=== PATIENT | male | born 1960 | race Caucasian/White ===

== ENCOUNTER 2016-12-02 09:25 | Inpatient (IN) | payer OTHER ==
--- NOTE | 2016-12-02 10:00 | EDPHY ---
H & P Stated Complaint: on coumadin/fell in [place] leg/seen at ed/fu in [place] HPI/ROS: CHIEF COMPLAINT: Left leg pain HISTORY OF PRESENT ILLNESS: Patient complains of left leg pain, swelling and redness. Started while he was out of town and pads per last week. He slipped while standing on a fireplace mantle last Friday. He scraped the left anterior albarran. Moderately painful time. It progressed over the next few days. He was evaluated at an emergency department in [place], with a obtain laboratory studies and a CT scan of the left lower extremity. He was discharged home with a diagnosis of cellulitis on Keflex. The pain and swelling have increased over the past few days. No fever or chills. No numbness or tingling of the left foot or ankle. There is some drainage from the anterior albarran that is serous. There is some black appearance to the albarran with the outer skin being numb to him. He has no pain above the area. No chest pain or shortness of breath. No other associated complaints or modifying factors. He does take Coumadin for atrial fibrillation. REVIEW OF SYSTEMS: Ten systems reviewed and are negative unless otherwise noted in the HPI PAST MEDICAL HISTORY: Atrial fibrillation on Coumadin SOCIAL HISTORY: Nonsmoker. Works here in [place] FAMILY HISTORY: Noncontributory EXAMINATION General Appearance: Alert, no distress Head: normocephalic, atraumatic Eyes: Pupils equal and round, no conjunctival pallor or injection ENT, Mouth: Mucous membranes moist Neck: Normal inspection, supple, non-tender Respiratory: Lungs are clear to auscultation. No wheezing, rhonchi or crackles Cardiovascular: Regular rate and rhythm murmur. The DP pulses are symmetric at 2+. PT pulses are symmetric at 2+. The left lower extremity exhibits good signs of perfusion. Gastrointestinal: Abdomen is soft and nontender Back: non-tender, no bony abnormalities Neurological: A&O, nonfocal, cranial nerves 2-12 grossly intact. Skin: Warm and dry. The left lower extremity has extensive area of cellulitis and hematoma over the left anterior albarran. There is desquamation, serous drainage and an area of necrotic change about the hematoma. Extremities: Minimal tenderness buttock extremely edematous left lower extremity anteriorly. Compartments are firm but not rigid. He has strong pulses distal to the area of swelling. There is area of cellulitis infected hematoma. I do not appreciate any subcu emphysema of the area. Psychiatric: Mood and affect normal DIFFERENTIAL DIAGNOSES: Including but not limited to Cellulitis, infected hematoma, osteomyelitis, compartment syndrome, necrotizing fasciitis, fracture, sepsis MDM: 10:00 a.m. Left lower extremity infected hematoma with cellulitis and outer area of necrotic superficial tissue. I do not appreciate any evidence of compartment syndrome as he does have palpable and symmetric pulses in the DP and PT regions. There is significant edema. Concerns for cellulitis, infected hematoma in osteomyelitis. wound culture, blood cultures and lactic acid have been ordered. 10:55 a.m. Notified by radiologist Dr. Verduzco. There is no acute DVT noted on the lower extremity. There is hematoma noted. 11:30 a.m. I discussed the case with hospitalist Dr. Decker. The patient be admitted for lower extremity cellulitis with infected hematoma. We discussed the patient's vancomycin and there are no further orders at this time. He is admitted in stable condition. ED Precautions: Worsening pain. Erythema, edema, cyanosis, pallor, paresthesia or anesthesia. SUPERVISION: Shared visit. Patient evaluated by Dr. Saenz Source: Patient Exam Limitations: No limitations - Personal History Current Tetanus/Diphtheria Vaccine: Yes Tetanus Vaccine Date: < 10 YEARS - Medical/Surgical History Hx Asthma: No Hx Chronic Respiratory Disease: No Hx Diabetes: No Hx Cardiac Disease: Yes Hx Renal Disease: No Hx Cirrhosis: No Hx Alcoholism: No Hx HIV/AIDS: No Hx Splenectomy or Spleen Trauma: No Other PMH: ABLATION for afib, - Social History Smoking Status: Never smoked Constitutional: Initial Vital Signs Temperature (C) 98.8 F 12/02/16 09:32 Heart Rate 76 12/02/16 09:32 Respiratory Rate 18 12/02/16 09:32 Blood Pressure 130/82 H 12/02/16 09:32 O2 Sat (%) 95 12/02/16 09:32 O2 Delivery Mode Room Air Allergies/Adverse Reactions: No Known Allergies Allergy (Verified 12/02/16 09:31) Home Medications: Medication Instructions Recorded Dronedarone HCl [Multaq 400 mg (*)] 400 mg PO BIDMEAL 12/11/15 Furosemide [Lasix 40 MG (*)] 40 mg PO DAILY 12/11/15 Metoprolol Tartrate [Lopressor 100 50 mg PO BID 12/11/15 mg (*)] Warfarin Sodium [Coumadin 5MG (*)] 2.5 mg PO SUTUWETHSA@12/11/15 Warfarin Sodium [Coumadin 5MG (*)] 5 mg PO MOFR@12/11/15 Cephalexin [Keflex (*)] 500 mg PO BID 12/02/16 Ibuprofen [Motrin (*)] 800 mg PO Q8HRS 12/02/16 Medical Decision Making - Diagnostics Imaging Results: Imaging Impressions Tibia/Fibula X-Ray 12/02/16 09:57 Impression: 1. There is no acute or subacute osseous abnormality identified. 2. Pretibial soft tissue density, consistent with the patient's known hematoma. If there is further clinical concern regarding osteomyelitis, contrast-enhanced MR imaging is suggested. Extremity Venous Study 12/02/16 10:03 Impression: 1. There is no sonographic evidence of deep or superficial vein thrombosis in the left lower extremity. 2. Pretibial soft tissues complex hematoma. Findings were discussed with Hilton Boone PA-C at 10:54 am, on 12/02/2016. - Data Points Laboratory Results: Laboratory Results 12/02/16 09:52 12/02/16 09:52 12/02/16 12/02/16 12/02/16 09:52 09:52 09:52 WBC 10.60 10^3/uL H 10^3/uL (3.80-9.50) RBC 3.28 10^6/uL L 10^6/uL (4.40-6.38) Hgb 11.8 g/dL L g/dL (13.7-17.5) Hct 34.3 % L % (40.0-51.0) MCV 104.6 fL H fL (81.5-99.8) MCH 36.0 pg H pg (27.9-34.1) MCHC 34.4 g/dL g/dL (32.4-36.7) RDW 12.8 % % (11.5-15.2) Plt Count 237 10^3/uL 10^3/uL (150-400) MPV 9.8 fL fL (8.7-11.7) Neut % (Auto) 66.0 % % (39.3-74.2) Lymph % (Auto) 20.1 % % (15.0-45.0) [place] % (Auto) 12.3 % % (4.5-13.0) Eos % (Auto) 0.5 % L % (0.6-7.6) Baso % (Auto) 0.4 % % (0.3-1.7) Nucleat RBC Rel Count 0.0 % % (0.0-0.2) Absolute Neuts (auto) 7.01 10^3/uL H 10^3/uL (1.70-6.50) Absolute Lymphs (auto) 2.13 10^3/uL 10^3/uL (1.00-3.00) Absolute Monos (auto) 1.30 10^3/uL H 10^3/uL (0.30-0.80) Absolute Eos (auto) 0.05 10^3/uL 10^3/uL (0.03-0.40) Absolute Basos (auto) 0.04 10^3/uL 10^3/uL (0.02-0.10) Absolute Nucleated RBC 0.00 10^3/uL 10^3/uL (0-0.01) Immature Gran % 0.7 % % (0.0-1.1) Immature Gran # 0.07 10^3/uL 10^3/uL (0.00-0.10) ESR 33 MM/HR H MM/HR (0-20) PT 20.5 SEC H SEC (12.0-15.0) INR 1.75 H (0.83-1.16) APTT 38.8 SEC H SEC (23.0-38.0) VBG Lactic Acid Sodium 141 mEq/L mEq/L (134-144) Potassium 3.9 mEq/L mEq/L (3.5-5.2) Chloride 105 mEq/L mEq/L (97-110) Carbon Dioxide 26 mEq/l mEq/l (22-31) Anion Gap 10 mEq/L mEq/L (8-16) BUN 12 mg/dL mg/dL (7-23) Creatinine 1.0 mg/dL mg/dL (0.7-1.3) Estimated GFR > 60 Glucose 116 mg/dL H mg/dL (70-100) Calcium 8.9 mg/dL mg/dL (8.5-10.4) Total Bilirubin 2.0 mg/dL H mg/dL (0.1-1.4) Creatine Kinase 103 IU/L IU/L (0-224) C-Reactive Protein 195.3 mg/L H mg/L (<10.0) 12/02/16 09:52 WBC RBC Hgb Hct MCV MCH MCHC RDW Plt Count MPV Neut % (Auto) Lymph % (Auto) [place] % (Auto) Eos % (Auto) Baso % (Auto) Nucleat RBC Rel Count Absolute Neuts (auto) Absolute Lymphs (auto) Absolute Monos (auto) Absolute Eos (auto) Absolute Basos (auto) Absolute Nucleated RBC Immature Gran % Immature Gran # ESR PT INR APTT VBG Lactic Acid 0.9 mmol/L mmol/L (0.7-2.1) Sodium Potassium Chloride Carbon Dioxide Anion Gap BUN Creatinine Estimated GFR Glucose Calcium Total Bilirubin Creatine Kinase C-Reactive Protein Medications Given: Discontinued Medications Vancomycin/Sodium Chloride (Vancomycin 1 Gm (Premix)) 250 mls @ 250 mls/hr IV EDNOW ONE PRN Reason: Protocol Stop: 12/02/16 11:28 Last Admin: 12/02/16 10:38 Dose: 250 mls Departure - Departure Disposition: [facility] Acute Clinical Impression: Lower extremity cellulitis Qualifiers: Laterality: left Qualified Code(s): L03.116 - Cellulitis of left lower limb Traumatic hematoma of lower leg with infection Qualifiers: Encounter type: initial encounter Laterality: left Qualified Code(s): S80.12XA - Contusion of left lower leg, initial encounter Condition: Good
[2016-12-02 10:11] LABS: % IMMATURE GRANULYOCYTES 0.7 % (0.0-1.1); ABSOLUTE IMMATURE GRANULOCYTES 0.07 10^3/uL (0.00-0.10); ADD DIFF? NO; ADD MORPH? NO; ADD SCAN? NO; ATYPICAL LYMPHOCYTE FLAG 0 (0-99); FRAGMENT RBC FLAG 0 (0-99); HEMATOCRIT 34.3 % (40.0-51.0); HEMOGLOBIN 11.8 g/dL (13.7-17.5); LEFT SHIFT FLG 10 (0-99); LIPEMIA HEMOLYSIS FLAG 90 (0-99); MEAN CELL HEMOGLOBIN CONCENTR. 34.4 g/dL (32.4-36.7); MEAN CELL VOLUME 104.6 fL (81.5-99.8); MEAN PLATELET VOLUME 9.8 fL (8.7-11.7); PLATELET CLUMPS FLAG 0 (0-99); PLATELET COUNT 237 10^3/uL (150-400); RED BLOOD CELL COUNT 3.28 10^6/uL (4.40-6.38); RED CELL DISTRIBUTION WIDTH 12.8 % (11.5-15.2)
[2016-12-02 10:18] LABS: INR 1.75 (0.83-1.16); PROTIME(PATIENT) 20.5 SEC (12.0-15.0)
[2016-12-02 10:19] LABS: APTT 38.8 SEC (23.0-38.0)
[2016-12-02 10:23] LABS: SEDIMENTATION RATE 33 MM/HR (0-20)
[2016-12-02] MEDS ORDERED: VANCOMYCIN HCL/NORMAL SALINE 250 ML IV ONE (10:29)
[2016-12-02 10:38] LABS: ANION GAP 10 mEq/L (8-16); CALCIUM 8.9 mg/dL (8.5-10.4); CARBON DIOXIDE 26 mEq/l (22-31); CHLORIDE 105 mEq/L (97-110); GLOMERULAR FILTRATION RATE > 60; GLUCOSE 116 mg/dL (70-100); POTASSIUM 3.9 mEq/L (3.5-5.2); SODIUM 141 mEq/L (134-144)
[2016-12-02 10:57] LABS: C-REACTIVE PROTEIN 195.3 mg/L (<10.0)
[2016-12-02] MEDS ORDERED: ONDANSETRON DISINTEGRATING 4 MG TAB PO PRN (13:39)
[2016-12-02] MEDS ORDERED: ONDANSETRON 4 MG/2 ML VIAL IVP PRN (13:39)
--- NOTE | 2016-12-02 14:19 | GHP ---
[f rep st] HISTORY AND PHYSICAL DATE OF ADMISSION: 12/02/2016 CHIEF COMPLAINT: Left leg hematoma, cellulitis. HISTORY OF PRESENT ILLNESS: A 56-year-old male with a history of atrial fibrillation and prior left leg cellulitis presented with a progressive leg hematoma. He was in [place] last week, standing on top of a fireplace, changing a bulb when he lost his footing. He scraped his left anterior albarran on the way down on the wood. It was moderately painful at that time. The pain got worse with redn ess and swelling. He was seen in the emergency room in [place] and had a CT scan done showing la rge hematoma. He was diagnosed with cellulitis and discharged on Keflex. Pain and swelling have in creased over the past couple of days. No fevers or chills. No numbness or tingling of the left yoandy t or ankle. He notes some serous drainage from the anterior albarran. There is black scabbing to the s kin. He denies chest pain or shortness of breath. REVIEW OF SYSTEMS: I completed a 10-point review of systems, negative except as noted in the HPI. PAST MEDICAL HISTORY: 1. Atrial fibrillation. 2. History of prior left leg cellulitis in December 2015. 3. BENI, on CPAP. SOCIAL HISTORY: Lives in [place]. Works for [employer]. Alcohol: Drinks 2 to 3 scotches a coupl e of times a week. No tobacco or illicits. FAMILY HISTORY: Father with cancer. PAST SURGICAL HISTORY: None. MEDICATIONS: Home medications: See medication reconciliation. /[id number]/MODL
--- NOTE | 2016-12-02 14:19 | GHP ---
[f rep st] HISTORY AND PHYSICAL DATE OF ADMISSION: 12/02/2016 CHIEF COMPLAINT: Left leg hematoma/cellulitis. HISTORY OF PRESENT ILLNESS: This is a 56-year-old male with history of atrial fibrillation on Coumadin, BENI, presenting with progressive leg hematoma. He was in [place] last week working on a [employer] mantle, standing on the ledge , when he lost his footing and scraped his left anterior albarran. Immediately had pain at the site. The pain progressed, as well as swelling. He went to ER there and CT showed large hematoma and was given Keflex for cellulitis. Pain and swelling have increased over the past couple of days. Denies overt fevers or chills. No numbness or tingling in the left foot or ankle. He has complained of some serous drainage. There is a black appearance over the albarran. REVIEW OF SYSTEMS: I completed a 10-point review of systems, negative except as noted in HPI. PAST MEDICAL HISTORY: 1. Atrial fibrillation on Coumadin. 2. Obstructive sleep apnea on CPAP. 3. History of left leg cellulitis in December 2015. SOCIAL HISTORY: Lives in [place]. Works at [employer]. Alcohol: 2-3 scotches every 2-3 days. No tobacco or illicits. FAMILY HISTORY: Father with cancer. MEDICATIONS: See medication reconciliation. ALLERGIES: None. PAST SURGICAL HISTORY: None. PHYSICAL EXAMINATION: VITAL SIGNS: Temperature 36.6, blood pressure 125/71, heart rate 70s, respirations 18, 95% on room air. GENERAL: Obese male lying in bed in no acute distress. HEENT: PERRLA. EOMI. Oropharynx clear. CV: Regular rate and rhythm. No murmurs, gallops, or rubs. LUNGS: Clear to auscultation bilaterally. ABDOMEN: Soft, nontender, nondistended. Positive bowel sounds. : No suprapubic tenderness. No [place]. MUSCULOSKELETAL: Significant left lower extremity swelling and erythema. There is a large area of eschar on the lateral aspect with serous drainage. Pedal pulses are intact. No numbness to touch. PSYCH: Alert and oriented x3, very pleasant. LABORATORY DATA: INR is 1.7, PT is 20. Lactate is normal. Sodium 141, potassium 3.9, chloride 105, carbon dioxide 26, BUN 12, creatinine 1, glucose 116. Total bilirubin 2, C-reactive protein is 195. WBC is 10, hemoglobin is 11 , hematocrit 34, platelets 237. Ultrasound negative for DVT. Tib-fib x-ray showing hematoma. Personally reviewed outside hospital CT showing a very significant anterior lateral leg hematoma. ASSESSMENT AND PLAN: 1. Left leg cellulitis: due to abrasion, now hematoma. IV vancomycin. He is afebrile. Blood cultures pending 2. Large hematoma: secondary to abrasion on Coumadin. I have contacted Dr. Butler with surgery who will evaluate patient. Wound care 3. Atrial fibrillation: NSR. Continue antiarrhythmic. Hold Coumadin with hematoma. 4. Obstructive sleep apnea, continue CPAP. 5. Diet: N.p.o. for now. 6. Deep vein thrombosis prophylaxis. SCD to the right leg. Disposition: Warrants inpatient admission given acute left leg cellulitis and hematoma. Requires IV antibiotics and possible surgical intervention. /[id number]/MODL MTDD
[2016-12-02] MEDS ORDERED: VANCOMYCIN 500 MG in D5W 100 ML IV ONE (14:30)
[2016-12-02] MEDS: DRONEDARONE HCL 400 MG TAB PO SCH (18:30)
[2016-12-02] MEDS: METOPROLOL TARTRATE 50 MG TAB PO SCH (19:49)
[2016-12-02] MEDS: ACETAMINOPHEN 325 MG TAB PO PRN (20:46)
[2016-12-02] MEDS ORDERED: METOPROLOL TARTRATE 100 MG TAB PO SCH (21:00)
[2016-12-03] MEDS: VANCOMYCIN 1.5 GM in D5W 250 ML IV SCH ×2 (03:18→16:23)
[2016-12-03] MEDS: ACETAMINOPHEN 325 MG TAB PO PRN ×2 (03:25→19:39)
[2016-12-03] MEDS: oxyCODONE IR 5 MG TAB PO PRN (03:25)
[2016-12-03 05:27] LABS: HEMATOCRIT 31.6 % (40.0-51.0); MEAN CELL HEMOGLOBIN 35.9 pg (27.9-34.1); MEAN CELL HEMOGLOBIN CONCENTR. 34.8 g/dL (32.4-36.7); MEAN CELL VOLUME 103.3 fL (81.5-99.8); RED BLOOD CELL COUNT 3.06 10^6/uL (4.40-6.38); RED CELL DISTRIBUTION WIDTH 12.5 % (11.5-15.2)
[2016-12-03 05:35] LABS: INR 1.51 (0.83-1.16); PROTIME(PATIENT) 18.2 SEC (12.0-15.0)
--- NOTE | 2016-12-03 06:51 | GCON ---
[f rep st] CONSULTATION REFERRING PHYSICIAN: Emilee Love MD REASON FOR CONSULTATION: Left leg hematoma/cellulitis. HISTORY OF PRESENT ILLNESS: This is a 56-year-old gentleman with a history of atrial fibrillation s tatus post ablation on Coumadin, who presented for evaluation management of left lower leg injury. The patient had been working above a fireplace in his former hometown of [place] when he slipped and fell. He struck the anterior aspect of his albarran, and he developed a hematoma. The patient also was worried about cellulitis. He just flew back from [place] after being seen in the emergency room and given Keflex. The patient had noted increased pain and swelling over the last several days and the patient noticed a black eschar over the area of impact. PAST MEDICAL HISTORY: Significant for atrial fibrillation, obstructive sleep apnea, left leg cellul itis in 2016. PAST SURGICAL HISTORY: Includes ablation of cardiac atrial fibrillation, remains on Coumadin despit e this. He has not had any other issues. ALLERGIES: None. MEDICATION: Includes Coumadin, ibuprofen, metoprolol, furosemide, Multaq, Keflex. FAMILY HISTORY: Significant for cancer. REVIEW OF SYSTEMS: Significant for his sleep apnea, his recent leg injury. All others were reviewe d and are negative. PHYSICAL EXAMINATION: VITAL SIGNS: The patient is alert, oriented to person, place, and time. He has a temperature of 36.9, heart rate of 70, blood pressure of 117/64, saturating 95% on room air. The patient has anicteric sclerae. Oropharynx is moist. No JVD, thyromegaly, supraclavicular adeno debi. LUNGS: Clear. HEART: Regular heart tones, S1 and S2. ABDOMEN: Soft. He has small umbil ical hernia. No scars. No hepatosplenomegaly. No other hernias are noted. EXTREMITIES: 2+/2+ fe moral, radial, and dorsalis pedis pulses. His left lower extremity is grossly swollen with bruising and subcutaneous areas of bruising and underlying blood. He has a large eschar measuring approxima tely 11 x 8 cm raised on the anterolateral aspect of the albarran. He also has a small ballotable area measuring 5 x 6 cm just below the knee, which does not have an eschar. He has surrounding erythema, hard to tell whether this is from underlying bleeding, or whether it is from his secondary cellulit is. Given ultrasound of the leg was personally reviewed on PAX, agree with the findings, which show pretibial soft tissue complex hematoma, measuring 4 x 2 cm. X-ray of the tibia and fibula does not show an acute fracture. LABORATORY STUDIES: Significant for white blood cell count of 10.6, hemoglobin of 11.8 with a hemat ocrit of 34.3, platelet count of 237. ESR of 33. Coags show a PT of 20.5, INR of 1.75 and APTT of 38.8. His chemistry shows sodium 141, potassium 3.9, chloride 105, bicarb 26, BUN 12, creatinine 1, glucose 116, calcium 8.9, bilirubin is 2.0, C-reactive protein is 195. IMPRESSION: Lower leg injury with cellulitis possibly, and likely hematoma with ecchymosis. Recomm end elevation of his leg, agree with the diuresis, antibiotics for now. The patient has an elevated white blood cell count, but had been afebrile. Will continue to monitor the patient in the hospita l over the next 24-48 hours. I would hold off on his Coumadin for now and refrain from hematoma exp loration at this point, I believe that if we remove the eschar, he will have an open wound, which wo uld likely require a prolonged wound VAC use and skin graft. If we do nothing, this will act as a b iologic barrier and should likely respond to antibiotics and elevation. No compression at this poin t, I have discussed this with the patient. Will follow up with him while he is in the hospital. /[id number]/MODL
[2016-12-03] MEDS: FUROSEMIDE 40 MG TAB PO SCH (09:31)
[2016-12-03] MEDS: DRONEDARONE HCL 400 MG TAB PO SCH ×2 (09:31→20:59)
[2016-12-03] MEDS: METOPROLOL TARTRATE 50 MG TAB PO SCH ×2 (09:32→20:59)
--- NOTE | 2016-12-03 12:35 | HOSPPROG ---
Hospitalist Progress Note Assessment/Plan: #Fever: due to leg cellulitis vs hematoma. Mildly elevated WBC. Blood cultures pending #Left leg hematoma: will not debride as would lead to further complications, ie skin graft. Bacitracin. Hold coumadinD #Cellulitis: aspirated albarran, no pus. Will cont IV Vanc overnight. Hard to tell if redness from hematoma alone, but is source for infection, so would cont oral abx at DC with fevers #Atrial fib: s/p ablation. cont meds. Hold coumadin #Diet: regular #DVT ppx: SCD with hematoma Disp: warrants inpt admission with fever, cont IV abx and await cultures Subjective: fevered overnight Objective: Vital Signs Temp Pulse Resp BP Pulse Ox 37.3 C 77 17 122/71 H 99 12/03/16 08:00 12/03/16 09:32 12/03/16 08:00 12/03/16 09:32 12/03/16 08:00 Laboratory Results 12/03/16 04:49 12/02/16 12/03/16 12/04/16 05:59 05:59 05:59 Intake Total 1350 Output Total 700 Balance 650 PT 18.2 SEC (12.0-15.0) H 12/03/16 04:49 INR 1.51 (0.83-1.16) H 12/03/16 04:49 - Physical Exam Constitutional: no apparent distress, obese Eyes: PERRL Ears, Nose, Mouth, Throat: moist mucous membranes Cardiovascular: regular rate and rhythym, no murmur, rub, or gallop Respiratory: no respiratory distress, no rales or rhonchi Gastrointestinal: normoactive bowel sounds, soft, non-tender abdomen Genitourinary: no bladder fullness Skin: warm Musculoskeletal: other (left leg swelling improved with elevation. Lateral area with eschar and closed skin. Area above fluctuant. Leg warm with erythema surrounding hematoma. Pulses intact) Neurologic: AAOx3, CN II-XII Intact Psychiatric: interacting appropriately ICD10 Worksheet Patient Problems: Problems Problem Status Onset Lower extremity cellulitis Acute Traumatic hematoma of lower leg with infection Acute Cellulitis Acute
--- NOTE | 2016-12-03 21:19 | SOAPPROG ---
SOAP Progress Note Assessment/Plan: Assessment/Plan: 56 you man on anticoagulation s/p left leg trauma. Large distal hematoma. Given Keflex in [place] now on Vanco. Leg interval less edematous. Ecchymosis versus cellulitis. Area of concern proximal leg is 5x6 cm with warmth and fluctuance. Area cleansed with chlorhexidine and 23 ga needle used to aspirate fluid. No purulence Continue Vanco reassess in am possible d/c in am on abx. Discussed with Dr Love 12/03/16 17:14 Objective: Vital Signs Temp Pulse Resp BP Pulse Ox 37.3 C 90 18 132/78 H 94 12/03/16 19:22 12/03/16 20:59 12/03/16 19:22 12/03/16 20:59 12/03/16 19:22 Laboratory Results 12/03/16 04:49 12/02/16 12/03/16 12/04/16 05:59 05:59 05:59 Intake Total 1350 250 Output Total 700 Balance 650 250 PT 18.2 SEC (12.0-15.0) H 12/03/16 04:49 INR 1.51 (0.83-1.16) H 12/03/16 04:49 ICD10 Worksheet Patient Problems: Problems Problem Status Onset Lower extremity cellulitis Acute Traumatic hematoma of lower leg with infection Acute Cellulitis Acute
[2016-12-04] MEDS: VANCOMYCIN 1.5 GM in D5W 250 ML IV SCH ×2 (03:01→15:22)
[2016-12-04 04:29] LABS: HEMATOCRIT 32.8 % (40.0-51.0); HEMOGLOBIN 11.3 g/dL (13.7-17.5); MEAN CELL HEMOGLOBIN 35.5 pg (27.9-34.1); MEAN CELL HEMOGLOBIN CONCENTR. 34.5 g/dL (32.4-36.7); MEAN CELL VOLUME 103.1 fL (81.5-99.8); RED BLOOD CELL COUNT 3.18 10^6/uL (4.40-6.38)
[2016-12-04 04:50] LABS: ANION GAP 13 mEq/L (8-16); CALCIUM 8.4 mg/dL (8.5-10.4); CARBON DIOXIDE 22 mEq/l (22-31); CHLORIDE 101 mEq/L (97-110); CREATININE 0.9 mg/dL (0.7-1.3); GLOMERULAR FILTRATION RATE > 60; GLUCOSE 156 mg/dL (70-100); POTASSIUM 3.6 mEq/L (3.5-5.2); SODIUM 136 mEq/L (134-144)
[2016-12-04] MEDS: ACETAMINOPHEN 325 MG TAB PO PRN ×4 (05:32→21:10)
[2016-12-04] MEDS: METOPROLOL TARTRATE 50 MG TAB PO SCH ×2 (09:52→21:10)
[2016-12-04] MEDS: FUROSEMIDE 40 MG TAB PO SCH (09:53)
[2016-12-04] MEDS: DRONEDARONE HCL 400 MG TAB PO SCH ×2 (09:53→17:33)
[2016-12-04] MEDS ORDERED: MEPERIDINE 25 MG/ML SYR IVP ONE (13:15)
--- NOTE | 2016-12-04 14:04 | HOSPPROG ---
Hospitalist Progress Note Assessment/Plan: #Fever: due to leg cellulitis vs hematoma. Mildly elevated WBC. Blood cultures pending * still with fever after a day of IV abx * will add invanz and watch #Left leg hematoma: will not debride as would lead to further complications, ie skin graft. Bacitracin. Hold coumadinD #Cellulitis: aspirated albarran, no pus * a little more fever than one would expect with just inflammation. Also with rigors * will add invanz to vanc and monitor another day #Atrial fib: s/p ablation. cont meds. * ablation was one year ago. he feels certain that he hasn't had any afib since * would hold coumadin until he can make appt with his gas specialist #Diet: regular #DVT ppx: SCD with hematoma Subjective: seemed to be feeling better but then had fever and rigors early afternoon. also increased o2 requirement at the time Objective: Vital Signs Temp Pulse Resp BP Pulse Ox 38.1 C 96 24 H 148/80 H 90 L 12/04/16 12:25 12/04/16 12:38 12/04/16 12:38 12/04/16 12:38 12/04/16 12:38 Laboratory Results 12/04/16 04:03 12/04/16 04:03 12/03/16 12/04/16 12/05/16 05:59 05:59 05:59 Intake Total 1350 600 Output Total 700 Balance 650 600 PT 18.2 SEC (12.0-15.0) H 12/03/16 04:49 INR 1.51 (0.83-1.16) H 12/03/16 04:49 discussed with surgery - Physical Exam Constitutional: no apparent distress, appears nourished, not in pain Eyes: anicteric sclera, EOMI Ears, Nose, Mouth, Throat: moist mucous membranes Cardiovascular: regular rate and rhythym, no murmur, rub, or gallop Respiratory: no respiratory distress, clear to auscultation Gastrointestinal: normoactive bowel sounds, soft, non-tender abdomen, no palpable masses Musculoskeletal: other (left leg with large black hematoma and surrounding erythema but no streaking) ICD10 Worksheet Patient Problems: Problems Problem Status Onset Lower extremity cellulitis Acute Traumatic hematoma of lower leg with infection Acute Cellulitis Acute
[2016-12-04] MEDS: ERTAPENEM 1 GM in NS 100 ML IV SCH (14:22)
[2016-12-04] MEDS: VANCOMYCIN 1.75 GM in D5W 500 ML IV SCH (17:07)
[2016-12-04] MEDS: oxyCODONE IR 5 MG TAB PO PRN (21:10)
[2016-12-05 04:50] LABS: % IMMATURE GRANULYOCYTES 0.9 % (0.0-1.1); ADD DIFF? NO; ADD MORPH? NO; ADD SCAN? NO; ATYPICAL LYMPHOCYTE FLAG 0 (0-99); FRAGMENT RBC FLAG 0 (0-99); HEMATOCRIT 31.2 % (40.0-51.0); HEMOGLOBIN 10.8 g/dL (13.7-17.5); LEFT SHIFT FLG 10 (0-99); LIPEMIA HEMOLYSIS FLAG 90 (0-99); MEAN CELL HEMOGLOBIN 35.5 pg (27.9-34.1); MEAN CELL HEMOGLOBIN CONCENTR. 34.6 g/dL (32.4-36.7); MEAN CELL VOLUME 102.6 fL (81.5-99.8); MEAN PLATELET VOLUME 9.7 fL (8.7-11.7); PLATELET CLUMPS FLAG 0 (0-99); PLATELET COUNT 253 10^3/uL (150-400); RED BLOOD CELL COUNT 3.04 10^6/uL (4.40-6.38); RED CELL DISTRIBUTION WIDTH 12.2 % (11.5-15.2)
[2016-12-05 05:05] LABS: ANION GAP 13 mEq/L (8-16); CALCIUM 8.7 mg/dL (8.5-10.4); CARBON DIOXIDE 25 mEq/l (22-31); CHLORIDE 101 mEq/L (97-110); CREATININE 0.9 mg/dL (0.7-1.3); GLOMERULAR FILTRATION RATE > 60; GLUCOSE 147 mg/dL (70-100); SODIUM 139 mEq/L (134-144)
[2016-12-05] MEDS: oxyCODONE IR 5 MG TAB PO PRN (05:07)
[2016-12-05] MEDS: VANCOMYCIN 1.75 GM in D5W 500 ML IV SCH (05:08)
[2016-12-05] MEDS: ACETAMINOPHEN 325 MG TAB PO PRN ×2 (05:14→20:59)
[2016-12-05] MEDS: ERTAPENEM 1 GM in NS 100 ML IV SCH (09:42)
[2016-12-05] MEDS: METOPROLOL TARTRATE 50 MG TAB PO SCH ×2 (09:43→20:32)
[2016-12-05] MEDS: DRONEDARONE HCL 400 MG TAB PO SCH ×3 (09:43→21:01)
--- NOTE | 2016-12-05 10:11 | HOSPPROG ---
Hospitalist Progress Note Assessment/Plan: DIAGNOSES: -skin and soft tissue infection left leg -macrocytic anemia and coagulopathy, suspect he may drink more alcohol than he is admitting the further assessment for other causes is indicated -history of atrial fibrillation -history of sleep apnea on CPAP PLANS: -I will review his MRI from [place] with in our radiologist -continue antibiotics and will cover for strep as the hemorrhagic changes suggest that organism -infectious disease consultation -check vitamin B12 and folate levels SUBJECTIVE: Still with fair bit of pain but less tender in pain today Woke up this morning soaked in sweat No nausea eating well Pain still interferes with walking but is able to get on his feet OBJECTIVE Vitals reviewed: Temperature this morning 39 degrees, stable vitals otherwise Exam: alert oriented relaxed skin warm dry color ok resps not labored lungs clear BSs heart regular abd soft nondistended nontender, bowel sounds present limbs left leg still with quite a bit of edema, erythema and the a large dermal hemorrhage; per the patient the edema is less today, and there remains some tenderness though less tender today per the patient; no palpable fluctuance or crepitus and nothing that really looks necrotic iv site ok Laboratory data: White blood cell count still high at 11.5 1000, hemoglobin slightly worse at 10.8, macrocytic Chemistry panel stable Objective: Vital Signs Temp Pulse Resp BP Pulse Ox 37.1 C 78 18 135/74 H 91 L 12/05/16 07:32 12/05/16 07:32 12/05/16 07:32 12/05/16 07:32 12/05/16 07:32 Laboratory Results 12/05/16 04:08 12/05/16 04:08 12/04/16 12/05/16 12/06/16 06:59 06:59 06:59 Intake Total 600 2059 Balance 600 2059 PT 18.2 SEC (12.0-15.0) H 12/03/16 04:49 INR 1.51 (0.83-1.16) H 12/03/16 04:49 - Time Spent With Patient Time Spent with Patient: greater than 35 minutes Time Spent with Patient: Greater than 35 minutes spent on this patients care, greater than 50% of time spent counseling, educating, and coordinating care regarding the above mentioned plan. ICD10 Worksheet Patient Problems: Problems Problem Status Onset Lower extremity cellulitis Acute Traumatic hematoma of lower leg with infection Acute Cellulitis Acute
[2016-12-05] MEDS: FUROSEMIDE 40 MG TAB PO SCH (10:38)
[2016-12-05 12:17] LABS: FOLATE SERUM 6.44 ng/mL (2.80 - >20.00)
--- NOTE | 2016-12-05 15:05 | TRAUMAPN ---
- Problem/Surgery Performed (1) Traumatic hematoma of lower leg with infection Assessment/Plan: 12/05 Hematoma continues, WBC down but % neutrophils increased. Original CT from [place] does show small amounts for gas in hematoma. I don't feel that further imaging will support further non-operative treatment. Will plan to explore/drain and dbride as I feel that this will truncate his course. Cultures will be obtained. Qualifiers: Encounter type: initial encounter Laterality: left Qualified Code(s): S80.12XA - Contusion of left lower leg, initial encounter; L08.9 - Local infection of the skin and subcutaneous tissue, unspecified Subjective: It's no better Objective: Vital Signs Temp Pulse Resp BP Pulse Ox 37.1 C 81 18 131/79 H 94 12/05/16 11:41 12/05/16 11:41 12/05/16 11:41 12/05/16 11:41 12/05/16 11:41 Laboratory Results 12/05/16 04:08 12/05/16 04:08 12/04/16 12/05/16 12/06/16 05:59 05:59 05:59 Intake Total 600 2059 Balance 600 2059 PT 18.2 SEC (12.0-15.0) H 12/03/16 04:49 INR 1.51 (0.83-1.16) H 12/03/16 04:49 Physical Exam - Physical Exam General Appearance: WD/WN, alert, mild distress Extremities: other (There is minimal erythema, edema, warmth and tenderness in left lower extremity) Time Spent w/Patient (minutes): 25
--- NOTE | 2016-12-05 15:12 | CPEKG ---
Heart Rate: 94 RR Interval: 638 P-R Interval: 152 QRSD Interval: 86 QT Interval: 372 QTC Interval: 466 P [place]: 44 QRS [place]: 40 T Wave [place]: 124 EKG Severity - ABNORMAL ECG - EKG Impression: SINUS RHYTHM EKG Impression: NONSPECIFIC T ABNORMALITIES, LATERAL LEADS Electronically Signed By: Isidoro Ahuja 05-Dec-2016 17:20:39
[2016-12-05] MEDS ORDERED: MIDAZOLAM 2 MG/2 ML VIAL ONE (15:20)
[2016-12-05] MEDS ORDERED: fentaNYL 100 MCG/2 ML INJ ONE (15:20)
[2016-12-05] MEDS ORDERED: PROPOFOL/EMULSION 500 MG/50 ML BOTTLE IV ONE (15:20)
--- NOTE | 2016-12-05 15:21 | GCON ---
[f rep st] CONSULTATION INFECTIOUS DISEASE CONSULTATION DATE OF CONSULTATION: 12/05/2016 REASON FOR CONSULTATION: Fever. HISTORY OF PRESENT ILLNESS: A 56-year-old male with a past medical history of atrial fibrillation, on Coumadin, and obstructive sleep apnea, who 1 week ago on November 27, sustained a fall from a ledge of a fireplace while changing a light bulb. The patient subsequently presented to the emergency room, on November [address] scan of his left lower extremity which sustained the brunt of the injury. The patient was found to have a large hematoma, and was started on prophylactic Keflex at that time. The patient returned to [place], and on December 02 presented to the emergency room per instructions from [place]. The patient was admitted to the hospital for further management. The patient was empirically started on IV vancomycin, and blood cultures were obtained. The patient reports that since admission his leg is less painful, less swollen, and less red. But despite this, he has had daily fevers to 39 since admission. The patient initially was started on IV vancomycin, but later ertapenem was started on December 04. The patient also has had a persistent leukocytosis of 11, 000. His CRP on admission was 195. Blood cultures have remained negative. Surgery has been following along, and today a CT scan was personally reviewed by me, as well as the rest of the team, which showed extensive hematoma in the lateral compartment of the left lower extremity. Planned for surgical debridement today. PAST MEDICAL HISTORY: Atrial fibrillation, status post ablation in August of 2015. The patient had been maintained on Coumadin, but has been discontinued. Also obstructive sleep apnea, hypertension. SOCIAL HISTORY: Nonsmoker. No alcohol. 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 He lives alone. No pets. No international travel. FAMILY HISTORY: Reviewed and noncontributory. ALLERGIES: NKDA. MEDICATIONS: Vancomycin 1.5 g IV q.12, ertapenem 1 g IV q.24. He is also on Tylenol, Lasix, Lopressor, Zofran, and oxycodone. REVIEW OF SYSTEMS: A complete 10-point review of systems was performed, and is negative except as mentioned in HPI. PHYSICAL EXAM: VITAL SIGNS: T-max today 39.1, blood pressure 131/79, heart rate 81, respiratory rate 18, saturation 94% on 6 L. GENERAL: This is a very pleasant male lying in bed, in no acute distress with fluent speech. HEENT: Pupils are reactive bilaterally. Oropharynx good dentition. Moist mucous membranes. NECK: Supple. No lymphadenopathy. CARDIOVASCULAR: Regular rate and rhythm. No murmurs. The patient was notably not in AFib by exam. CHEST: Clear to auscultation bilaterally. ABDOMEN: Obese, soft, nontender. Bowel sounds are present. EXTREMITIES: The patient had normal capillary refill bilaterally and 2+ bounding lower extremity pulses. He had obvious swelling of his left calf with obvious hematoma in the subcutaneous tissues. He also had noticeable swelling of the leg laterally with ecchymosis throughout, including under his thigh. There was no definitive erythema noted. Mild warmth. NEUROLOGIC: He is alert and oriented x4. Moving all 4 extremities equally. SKIN: No rashes other than noted on extremity exam. LABORATORY: White count 11.4, hematocrit 31, platelets of 253, 80% neutrophils , CRP is 195. Creatinine is 0.9. Blood cultures from December 02 are no growth to date, and a wound culture from December 02 is negative. ASSESSMENT AND PLAN: This is a 56-year-old male, status post traumatic fall to the left lower extremity with large hematoma, which is possibly superinfected. Evidence for that includes ongoing fever to 39 and mild leukocytosis. No evidence of compartment syndrome by exam. RECOMMENDATIONS: 1. Would narrow antibiotic coverage to MSSA and Streptococcus. Discontinue ertapenem and vancomycin, and start patient on cefazolin 1 g IV q.8. 2. Surgery to evaluate for surgical intervention, which is planned today. 3. Would obtain cultures intraoperatively. 4. We will continue to follow on a daily basis. I thank you for this consultation. /[id number]/MODL MTDD
[2016-12-05] MEDS ORDERED: CITRIC ACID/SODIUM CITRATE 30 ML UDCUP ONE (15:24)
[2016-12-05] MEDS ORDERED: LR 1,000 ML IV ONE (15:35)
[2016-12-05] MEDS ORDERED: BACITRACIN 50,000 UNITS/10 ML SYR IRR ONE ×2 (15:52→16:08)
--- NOTE | 2016-12-05 16:05 | PDANEPAE ---
ANE Past Medical History - Cardiovascular History Hx Arrhythmias: Yes Hx CHF / Valvular Disease: Yes Hx Palpitations: Yes - Pulmonary History Hx Oxygen in Use at Home: No Hx Sleep Apnea: Yes Sleep Apnea Screening Result - Last Documented: Positive - Endocrine History Hx Diabetes: No Obesity: yes, severe ANE Patient History - Allergies Allergies/Adverse Reactions: No Known Allergies Allergy (Verified 12/02/16 09:31) - Home Medications Home Medications: Dronedarone HCl [Multaq 400 mg (*)] 400 mg PO BIDMEAL 12/11/15 [Last Taken 12/02] Furosemide [Lasix 40 MG (*)] 40 mg PO DAILY 12/11/15 [Last Taken 12/02/16] Metoprolol Tartrate [Lopressor 100 mg (*)] 50 mg PO BID 12/11/15 [Last Taken ] - NPO status NPO Since - Liquids (Date): 12/05/16 NPO Since - Liquids (Time): 10:15 NPO Since - Solids (Date): 12/05/16 NPO Since - Solids (Time): 09:15 - Smoking Hx Smoking Status: Never smoked ANE Labs/Vital Signs - Labs Result Diagrams: 12/05/16 04:08 12/05/16 04:08 - Vital Signs Blood Pressure: 131/79 Heart Rate: 81 Respiratory Rate: 18 O2 Sat (%): 94 Height: 185.42 cm Weight: 117.934 kg ANE Physical Exam - Airway Neck exam: FROM Mallampati Score: Class 2 Mouth exam: normal dental/mouth exam, poor dentition - Pulmonary Pulmonary: no respiratory distress, no rales or rhonchi, reduced air movement - Cardiovascular Cardiovascular: regular rate and rhythym, no murmur, rub, or gallop - ASA Status ASA Status: IV
[2016-12-05] MEDS ORDERED: DEXAMETHASONE 4 MG/ML VIAL IVP PRN (16:06)
[2016-12-05] MEDS ORDERED: METOCLOPRAMIDE 10 MG/2 ML VIAL IVP PRN (16:06)
[2016-12-05] MEDS ORDERED: LR 500 ML IV PRN (16:06)
[2016-12-05] MEDS ORDERED: fentaNYL 100 MCG/2 ML INJ IVP PRN (16:06)
[2016-12-05] MEDS ORDERED: ONDANSETRON 4 MG/2 ML VIAL IVP PRN (16:06)
[2016-12-05] MEDS ORDERED: PROMETHAZINE HCL 25 MG/ML INJ IVP PRN (16:06)
[2016-12-05] MEDS ORDERED: NALOXONE HCL 0.4 MG/ML INJ IVP PRN (16:06)
[2016-12-05 16:31] LABS: BICARBONATE 27 mEq/L (22-26); MEASURED OXYGEN SATURATION 96 % (92-95); PCO2 38 mmHg (34-38); PO2 80 mmHg (65-75); TCO2 28 mEq/L (23-27)
[2016-12-05] MEDS ORDERED: PHENYLEPHRINE HCL 100 MCG/ML SYR ONE (16:44)
[2016-12-05] MEDS ORDERED: ROCURONIUM 100 MG/10 ML VIAL ONE (16:44)
[2016-12-05] MEDS ORDERED: RANITIDINE 50 MG/2 ML VIAL ONE (16:44)
[2016-12-05] MEDS ORDERED: SUGAMMADEX SODIUM 200 MG/2 ML VIAL IVP ONE (16:44)
[2016-12-05] MEDS ORDERED: ONDANSETRON 4 MG/2 ML VIAL ONE (16:44)
[2016-12-05] MEDS ORDERED: METOCLOPRAMIDE 10 MG/2 ML VIAL ONE (16:44)
--- NOTE | 2016-12-05 16:59 | CPEKG ---
Heart Rate: 94 RR Interval: 638 P-R Interval: 156 QRSD Interval: 86 QT Interval: 361 QTC Interval: 452 P [place]: 44 QRS [place]: -9 T Wave [place]: 122 EKG Severity - ABNORMAL ECG - EKG Impression: SINUS RHYTHM EKG Impression: NONSPECIFIC T ABNORMALITIES, LATERAL LEADS Electronically Signed By: Isidoro Ahuja 05-Dec-2016 17:20:16
[2016-12-05 17:02] LABS: % IMMATURE GRANULYOCYTES 0.8 % (0.0-1.1); ABSOLUTE IMMATURE GRANULOCYTES 0.09 10^3/uL (0.00-0.10); ADD DIFF? NO; ADD MORPH? NO; ADD SCAN? NO; ATYPICAL LYMPHOCYTE FLAG 0 (0-99); FRAGMENT RBC FLAG 0 (0-99); HEMATOCRIT 31.1 % (40.0-51.0); LEFT SHIFT FLG 10 (0-99); LIPEMIA HEMOLYSIS FLAG 90 (0-99); MEAN CELL HEMOGLOBIN 35.9 pg (27.9-34.1); MEAN CELL HEMOGLOBIN CONCENTR. 35.4 g/dL (32.4-36.7); MEAN CELL VOLUME 101.6 fL (81.5-99.8); MEAN PLATELET VOLUME 9.3 fL (8.7-11.7); PLATELET CLUMPS FLAG 0 (0-99); PLATELET COUNT 279 10^3/uL (150-400); RED BLOOD CELL COUNT 3.06 10^6/uL (4.40-6.38); RED CELL DISTRIBUTION WIDTH 12.2 % (11.5-15.2)
[2016-12-05 17:25] LABS: ALANINE AMINOTRANSFERASE 50 IU/L (21-72); ALBUMIN 3.3 g/dL (3.5-5.0); ALKALINE PHOSPHATASE 71 IU/L (38-126); ANION GAP 10 mEq/L (8-16); ASPARTATE AMINOTRANSFERASE 38 IU/L (17-59); BILIRUBIN,TOTAL 1.4 mg/dL (0.1-1.4); CALCIUM 8.6 mg/dL (8.5-10.4); CARBON DIOXIDE 28 mEq/l (22-31); CHLORIDE 100 mEq/L (97-110); CREATININE 0.9 mg/dL (0.7-1.3); GLOMERULAR FILTRATION RATE > 60; GLUCOSE 171 mg/dL (70-100); MAGNESIUM 1.8 mg/dL (1.6-2.3); POTASSIUM 3.8 mEq/L (3.5-5.2); SODIUM 138 mEq/L (134-144); TOTAL PROTEIN 6.3 g/dL (6.3-8.2)
[2016-12-05 17:36] LABS: TROPONIN I 0.016 ng/mL (0-0.034)
--- NOTE | 2016-12-05 18:10 | POSTOPPROG ---
Post Op Note Date of Operation: 12/05/16 Surgeon: Grant Walsh Pre-op Diagnosis: Hematoma left lower leg, possible infection Post-op Diagnosis: Hematoma left lower leg, Necrotic skin Indication: Hematoma left lower leg, possible infection Procedure: I&D left lower leg hematoma, debfriement, wound culture Findings: Hematoma left lower leg, Necrotic skin Inf/Abcess present in the surg proc area at time of surgery?: No Specimen(s): cultures
--- NOTE | 2016-12-05 18:41 | GOP ---
[f rep st] OPERATIVE REPORT DATE OF OPERATION: SURGEON: Grant Walsh MD PREOPERATIVE DIAGNOSIS: Left lower extremity extensive subcutaneous hematoma with question of infection. POSTOPERATIVE DIAGNOSIS: Left lower extremity hematoma with necrotic skin. PROCEDURE PERFORMED: Incision and drainage, debridement, irrigation and culture of left lower extremity. FINDINGS: INDICATIONS: Evaluate for infection. DESCRIPTION OF PROCEDURE: The patient is placed on the operating table in supine position. After induction of adequate general endotracheal anesthesia, the left lower leg was carefully prepped and draped. A surgical time-out was carried out and agreed to by all members of the operative team. Concerns expressed for his oxygenation status given his pickwickian stature and his sleep apnea. The left lower leg was carefully assessed. There was a large hematoma proximally. An oblique incision was made over this area. The incision was deepened with Bovie electrocautery. A large amount of subcutaneous clot was evacuated. A Simpulse spd tech was used. The lower area was incised again obliquely. A large amount of clot was removed. In this case, the skin was totally attenuated and nonviable. The skin was debrided. Again, the Simpulse was used. The Simpulse did contain bacitracin. All available clot was removed but there was still embedded clot. The wound was now packed moist to dry using a Kerlix roll. This was covered with dry 4x4s and an ABD. Dry Kerlix was started at the ankle and advanced down to the ball of the foot, brought back up and wrapped up the leg as a dressing to above the ABD. A 4-inch Aries was started at the ankle, brought down onto the foot, brought back up, and then a 6- inch Aries was used to wrap the leg. He was successfully extubated, but there were concerns about his oxygenation. He was taken to recovery. A chest x-ray was performed which showed no evidence of pneumothorax. There was a right apical density we could not account for. An EKG showed no acute changes. Lactate, troponin, phosphorus, magnesium, a complete metabolic profile, and CBC have been drawn and not yet returned. Lactic acid level has been requested. The case was turned back over to Dr. Parker to decide whether the patient should go to the ICU or not. With regard to his wound, consideration will be given to return to OR or bedside dressing change tomorrow. He will eventually need a skin graft. /[id number]/MODL MTDD
[2016-12-06] MEDS: oxyCODONE IR 5 MG TAB PO PRN ×4 (03:36→23:08)
[2016-12-06] MEDS: ACETAMINOPHEN 325 MG TAB PO PRN ×4 (03:36→23:08)
[2016-12-06] MEDS: METOPROLOL TARTRATE 50 MG TAB PO SCH ×2 (08:27→21:01)
[2016-12-06] MEDS: FUROSEMIDE 40 MG TAB PO SCH (08:28)
[2016-12-06] MEDS: DRONEDARONE HCL 400 MG TAB PO SCH ×2 (08:28→21:02)
--- NOTE | 2016-12-06 08:44 | PCMIDPN ---
Assessment/Plan: Left lower extremity cellulitis and infected hematoma, s/p evacuation 12/05. Gram stain from the OR shows GPCs in pairs, culture pending. No fever since 5: 00 a.m. 12/05/2016. Compression dressing on left lower extremity, back to the OR today for wound VAC placement. WBC slightly improved today -- continue cefazolin -- once stabilized from a surgical perspective likely be able to transition patient to p.o. antibiotics to complete course -- appreciate surgical team assistance medications, antibiotics #3 Cefazolin 1 g IV Q 8, # 1 microbiology 12/02 blood cultures ( 2): No growth today 12/05 OR culture: Gram stain GPCs in pairs, culture perez Subjective: patient states he wishes that hematoma was evacuated days ago. Minimal pain denies complaints related to antibiotics including diarrhea, rash, itching Objective: Vital Signs Temp Pulse Resp BP Pulse Ox 37.3 C 78 20 135/65 H 95 12/06/16 03:39 12/06/16 03:39 12/06/16 03:39 12/06/16 03:39 12/06/16 03:39 Microbiology 12/05/16 16:04 Gram Stain - Final Leg - Eswab 12/05/16 16:04 Mycobacterial Smear (OSCAR) - Final Leg - Eswab Mycobacterial Culture - Final Laboratory Results 12/05/16 16:50 12/05/16 16:50 12/05/16 12/06/16 12/07/16 05:59 05:59 05:59 Intake Total 2059 805 Balance 2059 805 ESR 33 MM/HR (0-20) H 12/02/16 09:52 C-Reactive Protein 195.3 mg/L (<10.0) H 12/02/16 09:52 - Physical Exam General Appearance: alert, no apparent distress Respiratory: lungs clear, No accessory muscle use Cardiac/Chest: regular rate, rhythm Extremities: other ( dressing in place left lower extremity with obvious blood strike through - which is expected. Toes warm without cyanosis) Skin: No rash Neuro/Psych: alert, normal mood/affect, oriented x 3 ICD10 Worksheet Patient Problems: Problems Problem Status Onset Lower extremity cellulitis Acute Traumatic hematoma of lower leg with infection Acute Cellulitis Acute
--- NOTE | 2016-12-06 10:47 | PDANEPAE ---
ANE History of Present Illness left foot wound ANE Past Medical History Past Medical History: wing, afib, obese - Cardiovascular History Hx Arrhythmias: Yes Hx CHF / Valvular Disease: Yes Hx Palpitations: Yes - Pulmonary History Hx Oxygen in Use at Home: No Hx Sleep Apnea: Yes Sleep Apnea Screening Result - Last Documented: Positive - Endocrine History Hx Diabetes: No Obesity: yes, severe ANE Patient History - Allergies Allergies/Adverse Reactions: No Known Allergies Allergy (Verified 12/02/16 09:31) - Home Medications Home Medications: Dronedarone HCl [Multaq 400 mg (*)] 400 mg PO BIDMEAL 12/11/15 [Last Taken 12/02] Furosemide [Lasix 40 MG (*)] 40 mg PO DAILY 12/11/15 [Last Taken 12/02/16] Metoprolol Tartrate [Lopressor 100 mg (*)] 50 mg PO BID 12/11/15 [Last Taken ] - NPO status NPO Since - Liquids (Date): 12/05/16 NPO Since - Liquids (Time): 10:15 NPO Since - Solids (Date): 12/05/16 NPO Since - Solids (Time): 09:15 - Smoking Hx Smoking Status: Never smoked ANE Labs/Vital Signs - Labs Result Diagrams: 12/05/16 16:50 12/05/16 16:50 - Vital Signs Blood Pressure: 107/74 Heart Rate: 70 Respiratory Rate: 21 O2 Sat (%): 96 Height: 185.42 cm Weight: 117.934 kg ANE Physical Exam - Airway Neck exam: FROM Mallampati Score: Class 2 Mouth exam: poor dentition - Pulmonary Pulmonary: no respiratory distress - Cardiovascular Cardiovascular: regular rate and rhythym - ASA Status ASA Status: IV
[2016-12-06] MEDS ORDERED: BACITRACIN 50,000 UNITS/10 ML SYR IRR ONE (10:48)
[2016-12-06] MEDS ORDERED: POLYMYXIN B SULFATE 500,000 UNIT/10 ML SYR IRR ONE (10:48)
[2016-12-06] MEDS ORDERED: BUPIVACAINE 0.5% 30 ML SDV ONE (10:48)
[2016-12-06] MEDS ORDERED: fentaNYL 100 MCG/2 ML INJ ONE ×4 (10:53→17:29)
[2016-12-06] MEDS ORDERED: SUCCINYLCHOLINE CHLORIDE*ANESTHESIA ONLY*200 MG/10 ML SYR IVP ONE (10:53)
[2016-12-06] MEDS ORDERED: PROPOFOL 200 MG/20 ML VIAL ONE ×2 (10:54→15:52)
[2016-12-06] MEDS ORDERED: KETAMINE 100 MG/10 ML SYR ONE (10:54)
--- NOTE | 2016-12-06 10:54 | SOAPPROG ---
SOAP Progress Note Assessment/Plan: Assessment: 56 male with left leg wound after fall on coumadin off coumadin for several days/ last inr 1.5 on 12/03 risks and options fully discussed some copd risks and options fully discussed and he wishes to proceed Plan:left leg debrideent and wound vac 12/06/16 10:51 Objective: Vital Signs Temp Pulse Resp BP Pulse Ox 3.6 C L 70 21 H 107/74 96 12/06/16 10:46 12/06/16 10:47 12/06/16 10:47 12/06/16 10:47 12/06/16 10:47 Microbiology 12/05/16 16:04 Gram Stain - Final Leg - Eswab 12/05/16 16:04 Mycobacterial Smear (OSCAR) - Final Leg - Eswab Mycobacterial Culture - Final Laboratory Results 12/05/16 16:50 12/05/16 16:50 12/05/16 12/06/16 12/07/16 05:59 05:59 05:59 Intake Total 9 805 Balance 2058 805 PT 18.2 SEC (12.0-15.0) H 12/03/16 04:49 INR 1.51 (0.83-1.16) H 12/03/16 04:49 ICD10 Worksheet Patient Problems: Problems Problem Status Onset Lower extremity cellulitis Acute Traumatic hematoma of lower leg with infection Acute Cellulitis Acute
[2016-12-06] MEDS ORDERED: LR 1,000 ML IV ONE (15:50)
[2016-12-06] MEDS ORDERED: LIDOCAINE 2% 100 MG/5 ML SYR ONE (15:54)
[2016-12-06] MEDS ORDERED: ROCURONIUM 50 MG/5 ML VIAL ONE (15:54)
--- NOTE | 2016-12-06 16:01 | PDANEPAE ---
ANE History of Present Illness 56 year old male presents for debridement of leg with wound vac placment. ANE Past Medical History - Cardiovascular History Hx Hypertension: No Hx Arrhythmias: Yes Hx Chest Pain: No Hx Coronary Artery / Peripheral Vascular Disease: No Hx CHF / Valvular Disease: Yes Hx Palpitations: Yes - Pulmonary History Hx COPD: No Hx Asthma/Reactive Airway Disease: No Hx Recent Upper Respiratory Infection: No Hx Oxygen in Use at Home: No Hx Sleep Apnea: Yes Sleep Apnea Screening Result - Last Documented: Positive - Endocrine History Hx Diabetes: No Obesity: yes, severe ANE Review of Systems - Exercise capacity Exercise capacity: >=4 METS ANE Patient History - Allergies Allergies/Adverse Reactions: No Known Allergies Allergy (Verified 12/02/16 09:31) - Home Medications Home medications: home medication list seen and reviewed Home Medications: Dronedarone HCl [Multaq 400 mg (*)] 400 mg PO BIDMEAL 12/11/15 [Last Taken 12/02] Furosemide [Lasix 40 MG (*)] 40 mg PO DAILY 12/11/15 [Last Taken 12/02/16] Metoprolol Tartrate [Lopressor 100 mg (*)] 50 mg PO BID 12/11/15 [Last Taken ] - NPO status NPO Status: no food or drink >8 hours NPO Since - Liquids (Date): 12/05/16 NPO Since - Liquids (Time): 10:15 NPO Since - Solids (Date): 12/05/16 NPO Since - Solids (Time): 09:15 - Anes Hx Anes Hx: no prior problems - Smoking Hx Smoking Status: Never smoked - Family Anes Hx Family Anes Hx: none ANE Labs/Vital Signs - Labs Result Diagrams: 12/05/16 16:50 12/05/16 16:50 - Vital Signs Blood Pressure: 128/79 Heart Rate: 72 Respiratory Rate: 22 O2 Sat (%): 96 Height: 185.42 cm Weight: 117.934 kg ANE Physical Exam - Airway Mallampati Score: Class 2 Mouth exam: normal dental/mouth exam, maher - Pulmonary Pulmonary: no respiratory distress - Cardiovascular Cardiovascular: regular rate and rhythym - ASA Status ASA Status: II ANE Anesthesia Plan Anesthesia Plan: general endotracheal anesthesia
[2016-12-06] MEDS ORDERED: NALOXONE HCL 0.4 MG/ML INJ IVP PRN (16:50)
[2016-12-06] MEDS ORDERED: fentaNYL 100 MCG/2 ML INJ IVP PRN (16:50)
[2016-12-06] MEDS ORDERED: HYDROmorphONE/DILAUDID 1 MG/ML SYR IVP PRN (16:50)
[2016-12-06] MEDS ORDERED: LR 500 ML IV PRN (16:50)
[2016-12-06] MEDS ORDERED: THROMBIN (BOVINE) 20,000 UNIT SPRAY TP ONE (16:58)
[2016-12-06] MEDS ORDERED: SUGAMMADEX SODIUM 200 MG/2 ML VIAL IVP ONE (17:04)
[2016-12-06] MEDS ORDERED: HYDROmorphONE/DILAUDID 1 MG/ML SYR ONE (17:29)
--- NOTE | 2016-12-06 17:46 | HOSPPROG ---
Hospitalist Progress Note Assessment/Plan: DIAGNOSES: -skin and soft tissue infection left leg -macrocytic anemia and coagulopathy, suspect he may drink more alcohol than he is admitting ( B12 and folate normal) -history of atrial fibrillation -acute on chronic respiratory failure with hypoxemia and evidence of probable chronic CO2 retention as well He clearly feels better and is not having any more fever after removal of clot yesterday. He will return to the OR for reexamination of his wound and possible wound VAC placement today. As far as respiratory status with his sleep apnea and probable obesity hypoventilation syndrome, he remains at some risk for respiratory complications further than what we are seeing, particularly as he will be having more anesthesia today. Will continue to watch him very carefully and continue to use CPAP whenever sleeping. Will reassess after he comes out of OR this evening. PLANS: -continue antibiotics and will cover for strep as well as other soft tissue organisms -check vitamin B12 and folate levels SUBJECTIVE: patient seen this morning before his return to OR today Had an okay night, no nausea or chills, less pain today Is hungry Does not feel short of breath but is using 7 L of oxygen by OxyMask OBJECTIVE Vitals reviewed: Temperature this morning 39 degrees, stable vitals otherwise Exam: alert oriented relaxed skin warm dry color ok resps not labored lungs clear BSs heart regular abd soft nondistended nontender, bowel sounds present limbs left leg still with quite a bit of edema, erythema and the a large dermal hemorrhage; per the patient the edema is less today, and there remains some tenderness though less tender today per the patient; no palpable fluctuance or crepitus and nothing that really looks necrotic iv site ok Laboratory data: B12 and folate levels are normal Objective: Vital Signs Temp Pulse Resp BP Pulse Ox 37 C 72 12 130/83 H 96 12/06/16 17:37 12/06/16 16:01 12/06/16 17:40 12/06/16 17:31 12/06/16 17:40 Microbiology 12/05/16 16:04 Gram Stain - Final Leg - Eswab 12/05/16 16:04 Mycobacterial Smear (OSCAR) - Final Leg - Eswab Mycobacterial Culture - Final Laboratory Results 12/05/16 16:50 12/05/16 16:50 12/05/16 12/06/16 12/07/16 06:59 06:59 06:59 Intake Total 2058 805 Balance 2058 805 PT 18.2 SEC (12.0-15.0) H 12/03/16 04:49 INR 1.51 (0.83-1.16) H 12/03/16 04:49 ICD10 Worksheet Patient Problems: Problems Problem Status Onset Lower extremity cellulitis Acute Traumatic hematoma of lower leg with infection Acute Cellulitis Acute
--- NOTE | 2016-12-06 17:50 | POSTANESTH ---
Post Anesthetic Evaluation Respiratory Status: Similar to Pre-op Cond. (Patient arrived in preop from floor requiring 6L/min O2 via NC, patient requiring the same in PACU.) Level of Consciousness/Mental Status: Can Participate in Eval Pain Control: Adequate, Prn Tx Ordered Nausea/Vomiting Control: Adequate, Prn Tx Ordered Complications Possibly Related to Anesthesia: None Noted
--- NOTE | 2016-12-06 18:05 | POSTOPPROG ---
Post Op Note Date of Operation: 12/06/16 Surgeon: Glenn Ramirez Anesthesiologist: Pro Ayala Anesthesia: GET(General Endotracheal) Pre-op Diagnosis: Left leg wound Post-op Diagnosis: Same Indication: Necrotic tissue Procedure: Excisional debridement and wound VAC placement Findings: Necrotic subcutaneous tissue/20 by 10 cm defect Inf/Abcess present in the surg proc area at time of surgery?: No Depth: Superfical (Skin SQ) EBL: 50-100 Complications: None Drains: Wound Vac
[2016-12-06] MEDS ORDERED: ONDANSETRON 4 MG/2 ML VIAL IVP PRN (18:08)
[2016-12-06] MEDS ORDERED: HYDROCODONE/APAP 5/325 TAB PO PRN (18:08)
[2016-12-06] MEDS ORDERED: D5W 1/2 NS W/ 20 KCl/L 1,000 ML IV SCH (18:15)
[2016-12-07] MEDS: oxyCODONE IR 5 MG TAB PO PRN ×3 (03:59→18:38)
[2016-12-07] MEDS: ACETAMINOPHEN 325 MG TAB PO PRN ×3 (04:00→18:37)
[2016-12-07 06:01] LABS: INR 1.32 (0.83-1.16); PROTIME(PATIENT) 16.4 SEC (12.0-15.0)
--- NOTE | 2016-12-07 08:23 | TRAUMAPN ---
- Problem/Surgery Performed (1) Traumatic hematoma of lower leg with infection Assessment/Plan: 12/05 Hematoma continues, WBC down but % neutrophils increased. Original CT from [place] does show small amounts for gas in hematoma. I don't feel that further imaging will support further non-operative treatment. Will plan to explore/drain and dbride as I feel that this will truncate his course. Cultures will be obtained. 12/07 Assessment: Patient returned to OR for further debridement and wound vac placement. Wound vac in place. Swelling remarkably diminished. C&S still pending. Appears much better. Plan: Wound vac change on Friday. If great granulation present would consider STSG with this admission otherwise would consider outpatient wound vac therapy until wound bed set set to take graft. Qualifiers: Encounter type: initial encounter Laterality: left Qualified Code(s): S80.12XA - Contusion of left lower leg, initial encounter; L08.9 - Local infection of the skin and subcutaneous tissue, unspecified Subjective: 12/07 I feel much better. Objective: Vital Signs Temp Pulse Resp BP Pulse Ox 36.8 C 68 20 127/77 H 96 12/07/16 07:58 12/07/16 07:58 12/07/16 07:58 12/07/16 07:58 12/07/16 07:58 Microbiology 12/05/16 16:04 Gram Stain - Final Leg - Eswab Laboratory Results 12/05/16 16:50 12/05/16 16:50 12/06/16 12/07/16 12/08/16 05:59 05:59 05:59 Intake Total 805 1306 Output Total 10 Balance 805 1296 PT 16.4 SEC (12.0-15.0) H 12/07/16 05:04 INR 1.32 (0.83-1.16) H 12/07/16 05:04 Physical Exam - Physical Exam General Appearance: WD/WN, alert, no apparent distress Respiratory: chest non-tender, lungs clear, normal breath sounds Cardiac/Chest: regular rate, rhythm Back: Normal inspection Skin: normal color, warm/dry Extremities: other (Wound vac in place.)
[2016-12-07] MEDS: FUROSEMIDE 40 MG TAB PO SCH (10:07)
[2016-12-07] MEDS: METOPROLOL TARTRATE 50 MG TAB PO SCH ×2 (10:07→21:03)
[2016-12-07] MEDS: DRONEDARONE HCL 400 MG TAB PO SCH ×2 (10:07→18:37)
--- NOTE | 2016-12-07 11:52 | PCMIDPN ---
Assessment/Plan: Assessment/Plan: 1. LLE cellulitis with hematoma: s/p I & D - s/p wound vac now. - CX with ngtd so far. - blood cx ngtd -Currently on Ancef IV. PLan to change management analyst to PO soon. -check f/u labs in am. Meds ancef 1g q8- Subjective: afebrile. denies acute pain with the LLE> some pressure wiht wound vac but overall better. denies sob, abd pain or diarrhea. Objective: Vital Signs Temp Pulse Resp BP Pulse Ox 37.1 C 73 20 130/72 H 96 12/07/16 11:10 12/07/16 11:10 12/07/16 11:10 12/07/16 11:10 12/07/16 11:10 Microbiology 12/05/16 16:04 Gram Stain - Final Leg - Eswab Laboratory Results 12/05/16 16:50 12/05/16 16:50 12/06/16 12/07/16 12/08/16 05:59 05:59 05:59 Intake Total 805 1306 Output Total 10 Balance 805 1296 ESR 33 MM/HR (0-20) H 12/02/16 09:52 C-Reactive Protein 195.3 mg/L (<10.0) H 12/02/16 09:52 - Physical Exam General Appearance: alert, no apparent distress Respiratory: lungs clear Cardiac/Chest: regular rate, rhythm Extremities: swelling Abdomen: normal bowel sounds, non-tender, soft, No distended Skin: other (LLE: wound vac noted. swelling still present. not a lot of cellulitic changes noted at this time. ), No erythema ICD10 Worksheet Patient Problems: Problems Problem Status Onset Lower extremity cellulitis Acute Traumatic hematoma of lower leg with infection Acute Cellulitis Acute
[2016-12-08] MEDS: ACETAMINOPHEN 325 MG TAB PO PRN ×5 (00:44→18:42)
[2016-12-08] MEDS: oxyCODONE IR 5 MG TAB PO PRN ×5 (00:45→18:42)
[2016-12-08 06:08] LABS: % IMMATURE GRANULYOCYTES 2.1 % (0.0-1.1); ABSOLUTE IMMATURE GRANULOCYTES 0.16 10^3/uL (0.00-0.10); ABSOLUTE NRBC COUNT 0.02 10^3/uL (0-0.01); ADD DIFF? NO; ADD MORPH? NO; ADD SCAN? NO; ATYPICAL LYMPHOCYTE FLAG 40 (0-99); FRAGMENT RBC FLAG 0 (0-99); HEMATOCRIT 27.6 % (40.0-51.0); HEMOGLOBIN 9.3 g/dL (13.7-17.5); LEFT SHIFT FLG 10 (0-99); LIPEMIA HEMOLYSIS FLAG 80 (0-99); MEAN CELL HEMOGLOBIN 35.2 pg (27.9-34.1); MEAN CELL HEMOGLOBIN CONCENTR. 33.7 g/dL (32.4-36.7); MEAN CELL VOLUME 104.5 fL (81.5-99.8); MEAN PLATELET VOLUME 9.5 fL (8.7-11.7); NRBC-AUTO% 0.3 % (0.0-0.2); PLATELET CLUMPS FLAG 0 (0-99); PLATELET COUNT 377 10^3/uL (150-400); RED BLOOD CELL COUNT 2.64 10^6/uL (4.40-6.38); RED CELL DISTRIBUTION WIDTH 12.3 % (11.5-15.2)
[2016-12-08 06:20] LABS: ALANINE AMINOTRANSFERASE 40 IU/L (21-72); ALBUMIN 2.8 g/dL (3.5-5.0); ALKALINE PHOSPHATASE 74 IU/L (38-126); ANION GAP 10 mEq/L (8-16); ASPARTATE AMINOTRANSFERASE 29 IU/L (17-59); BILIRUBIN,TOTAL 0.8 mg/dL (0.1-1.4); CALCIUM 8.8 mg/dL (8.5-10.4); CARBON DIOXIDE 32 mEq/l (22-31); CHLORIDE 96 mEq/L (97-110); CREATININE 0.8 mg/dL (0.7-1.3); GLOMERULAR FILTRATION RATE > 60; GLUCOSE 108 mg/dL (70-100); POTASSIUM 3.7 mEq/L (3.5-5.2); SODIUM 138 mEq/L (134-144); TOTAL PROTEIN 5.9 g/dL (6.3-8.2)
--- NOTE | 2016-12-08 09:09 | HOSPPROG ---
Hospitalist Progress Note Assessment/Plan: 1. skin and soft tissue infection left leg -s/p surgical debridement, appreciate surgery assistance -wound vac in place, discussed care plan and dispo with Dr Capps -on ancef, will change to PO per ID, likely in next 1-2 more days if doing well 2. macrocytic anemia and coagulopathy -iron studies, hemoccults ordered 3. history of atrial fibrillation -sinus rhythm 4. -acute on chronic respiratory failure with hypoxemia and evidence of probable chronic CO2 retention, BENI -discussed CPAPs in general, says compliant -has O2 compressor at home from [facility] [place], but not sure if functioning, advised him to call [facility] [place] as may be needed at discharge DVT prophy- edinx PCP- discussed options in [facility] Dispo- likely > 2 more mdnts for wound care Subjective: Says feeling well. Pain OK with meds. Anxious to return to work. Denies CP/SOB/n/v/d. Has constipation. Live in [place], thinks PCP no longer practicing. Objective: Vital Signs Temp Pulse Resp BP Pulse Ox 97.6 F 72 20 131/82 H 94 12/08/16 08:00 12/08/16 08:00 12/08/16 08:00 12/08/16 08:00 12/08/16 08:00 Microbiology 12/05/16 16:04 Gram Stain - Final Leg - Eswab Laboratory Results 12/08/16 05:36 12/08/16 05:36 12/06/16 12/07/16 12/08/16 11:59 11:59 11:59 Intake Total 805 1306 150 Output Total 10 1 Balance 805 1296 149 PT 16.4 SEC (12.0-15.0) H 12/07/16 05:04 INR 1.32 (0.83-1.16) H 12/07/16 05:04 - Time Spent With Patient Time Spent with Patient: greater than 35 minutes Time Spent with Patient: Greater than 35 minutes spent on this patients care, greater than 50% of time spent counseling, educating, and coordinating care regarding the above mentioned plan. - Pending Discharge Pending Discharge Within 48 Hours: Yes Pending Discharge Date: 12/11/16 Pending Discharge Time: 11:00 - Physical Exam Constitutional: no apparent distress, appears nourished, not in pain, obese Eyes: PERRL, anicteric sclera, EOMI Ears, Nose, Mouth, Throat: moist mucous membranes, hearing normal Cardiovascular: regular rate and rhythym, no murmur, rub, or gallop Respiratory: no respiratory distress, no rales or rhonchi, clear to auscultation Gastrointestinal: normoactive bowel sounds, soft, non-tender abdomen, no palpable masses, No tenderness, No guarding, No rebound Skin: warm, other (L lower leg with wound vac and dressings in place, trace edema R side) Musculoskeletal: other (BLANCAS) Psychiatric: interacting appropriately, not anxious, not encephalopathic, thought process linear ICD10 Worksheet Patient Problems: Problems Problem Status Onset Lower extremity cellulitis Acute Traumatic hematoma of lower leg with infection Acute Cellulitis Acute
[2016-12-08] MEDS: DRONEDARONE HCL 400 MG TAB PO SCH ×2 (09:37→18:12)
[2016-12-08] MEDS: METOPROLOL TARTRATE 50 MG TAB PO SCH ×2 (09:37→20:22)
[2016-12-08] MEDS: FUROSEMIDE 40 MG TAB PO SCH (09:37)
[2016-12-08] MEDS ORDERED: LACTULOSE 20 GM/30 ML UDCUP PO PRN (10:02)
[2016-12-08] MEDS ORDERED: BISACODYL 10 MG SUPP PR PRN (10:02)
[2016-12-08] MEDS ORDERED: MAGNESIUM HYDROXIDE 30 ML UDCUP PO PRN (10:02)
[2016-12-08] MEDS: POLYETHYLENE GLYCOL 3350 17 GM PKT PO SCH (13:02)
--- NOTE | 2016-12-08 13:27 | TRAUMAPN ---
- Problem/Surgery Performed (1) Traumatic hematoma of lower leg with infection Assessment/Plan: 12/05 Hematoma continues, WBC down but % neutrophils increased. Original CT from [place] does show small amounts for gas in hematoma. I don't feel that further imaging will support further non-operative treatment. Will plan to explore/drain and dbride as I feel that this will truncate his course. Cultures will be obtained. 12/07 Assessment: Patient returned to OR for further debridement and wound vac placement. Wound vac in place. Swelling remarkably diminished. C&S still pending. Appears much better. Plan: Wound vac change on Friday. If great granulation present would consider STSG with this admission otherwise would consider outpatient wound vac therapy until wound bed set set to take graft. 12/08 No complaints Plan bedside wound vac change tomorrow. Mechanics of skin grafting discussed. Qualifiers: Encounter type: initial encounter Laterality: left Qualified Code(s): S80.12XA - Contusion of left lower leg, initial encounter; L08.9 - Local infection of the skin and subcutaneous tissue, unspecified Subjective: No complaints Objective: Vital Signs Temp Pulse Resp BP Pulse Ox 36.4 C 72 20 131/82 H 94 12/08/16 08:00 12/08/16 08:00 12/08/16 08:00 12/08/16 08:00 12/08/16 08:00 Microbiology 12/05/16 16:04 Gram Stain - Final Leg - Eswab Laboratory Results 12/08/16 05:36 12/08/16 05:36 12/07/16 12/08/16 12/09/16 05:59 05:59 05:59 Intake Total 1306 150 Output Total 10 1 Balance 1296 150 -1 PT 16.4 SEC (12.0-15.0) H 12/07/16 05:04 INR 1.32 (0.83-1.16) H 12/07/16 05:04 Physical Exam - Physical Exam Extremities: other (Wound vac in place and functioning well) Time Spent w/Patient (minutes): 15
--- NOTE | 2016-12-08 15:14 | PCMIDPN ---
Assessment/Plan: Assessment/Plan: 1. LLE cellulitis with hematoma: s/p I & D - s/p wound vac now. - CX with ngtd so far. - blood cx ngtd -Currently on Ancef IV. PLan to mash filter cloth changer to PO soon. -labs improved. -will coordinate with wound care team tomorrow so we can evaluate wound together when wound vac off. - discussed with wound care today. Meds ancef 1g q8- Subjective: Afebrile. feels about the same. does have some pain but is controlled with pain meds. wound vac pressent. denies sob, abd pain or diarrhea Objective: Vital Signs Temp Pulse Resp BP Pulse Ox 35.9 C L 68 20 127/83 H 86 L 12/08/16 15:05 12/08/16 15:05 12/08/16 15:05 12/08/16 15:05 12/08/16 15:05 Microbiology 12/05/16 16:04 Gram Stain - Final Leg - Eswab Laboratory Results 12/08/16 05:36 12/08/16 05:36 12/07/16 12/08/16 12/09/16 05:59 05:59 05:59 Intake Total 1306 150 Output Total 10 1 Balance 1296 150 -1 ESR 33 MM/HR (0-20) H 12/02/16 09:52 C-Reactive Protein 195.3 mg/L (<10.0) H 12/02/16 09:52 - Physical Exam General Appearance: alert, no apparent distress Respiratory: lungs clear Cardiac/Chest: regular rate, rhythm Extremities: swelling (LLE with wound vac in place. slightly less swelling noted. no obvious erythema present) Abdomen: normal bowel sounds, non-tender, soft, No distended ICD10 Worksheet Patient Problems: Problems Problem Status Onset Lower extremity cellulitis Acute Traumatic hematoma of lower leg with infection Acute Cellulitis Acute
[2016-12-08] MEDS: SENNOSIDES/DOCUSATE SODIUM TAB PO SCH (20:21)
[2016-12-09] MEDS: ACETAMINOPHEN 325 MG TAB PO PRN ×2 (00:40→07:23)
[2016-12-09] MEDS: oxyCODONE IR 5 MG TAB PO PRN ×3 (00:40→13:50)
[2016-12-09 05:26] LABS: HEMATOCRIT 26.9 % (40.0-51.0); HEMOGLOBIN 9.2 g/dL (13.7-17.5); MEAN CELL HEMOGLOBIN 35.2 pg (27.9-34.1); MEAN CELL HEMOGLOBIN CONCENTR. 34.2 g/dL (32.4-36.7); MEAN CELL VOLUME 103.1 fL (81.5-99.8); RED BLOOD CELL COUNT 2.61 10^6/uL (4.40-6.38); RED CELL DISTRIBUTION WIDTH 12.4 % (11.5-15.2)
[2016-12-09 05:35] LABS: ANION GAP 9 mEq/L (8-16); CALCIUM 8.9 mg/dL (8.5-10.4); CARBON DIOXIDE 30 mEq/l (22-31); CHLORIDE 99 mEq/L (97-110); CREATININE 0.7 mg/dL (0.7-1.3); GLOMERULAR FILTRATION RATE > 60; GLUCOSE 109 mg/dL (70-100); POTASSIUM 3.9 mEq/L (3.5-5.2); SODIUM 138 mEq/L (134-144)
[2016-12-09 05:44] LABS: % SATURATION 15 % (20-55); TOTAL IRON BINDING CAPACITY 293 ug/dL (260-490)
[2016-12-09] MEDS: DRONEDARONE HCL 400 MG TAB PO SCH ×2 (07:25→17:09)
[2016-12-09] MEDS: FUROSEMIDE 40 MG TAB PO SCH (09:04)
[2016-12-09] MEDS: VITAMIN B COMPLEX 1 EA CAP/TAB PO SCH (09:04)
[2016-12-09] MEDS: MULTIVITAMINS 1 EACH TAB PO SCH (09:04)
[2016-12-09] MEDS: METOPROLOL TARTRATE 50 MG TAB PO SCH ×2 (09:04→20:08)
[2016-12-09] MEDS: FERRO-SEQUELS 65 MG TAB.ER PO SCH ×2 (09:04→20:08)
[2016-12-09] MEDS: POLYETHYLENE GLYCOL 3350 17 GM PKT PO SCH (09:05)
[2016-12-09] MEDS: SENNOSIDES/DOCUSATE SODIUM TAB PO SCH ×2 (09:05→20:08)
[2016-12-09] MEDS ORDERED: LIDOCAINE HCL 4% TOPICAL SOLN 50ML TP ONE (09:21)
--- NOTE | 2016-12-09 10:28 | GOP ---
[f rep st] OPERATIVE REPORT DATE OF OPERATION: 12/06/2016 SURGEON: Glenn Ramirez MD BUILDINGS AND GROUNDS DIRECTOR: None. ANESTHESIOLOGIST: Dr. Ayala. PREOPERATIVE DIAGNOSIS: Left lower extremity wound. POSTOPERATIVE DIAGNOSIS: Left lower extremity wound. PROCEDURE PERFORMED: Excisional debridement and wound VAC placement. FINDINGS: Patient was found to have necrotic subcutaneous tissue, and a 20 x 10 cm defect. There w as a small amount of necrotic skin as well. DESCRIPTION OF PROCEDURE: The patient was taken to the operating room, where he received satisfacto ry general endotracheal anesthesia by Dr. Ayala. He was placed in supine position, prepped and rachna ped in the usual sterile fashion. Infarcted skin an infarcted subcutaneous tissue were all sharply debrided back to good fresh bleeding tissue. Hemostasis was obtained with electrocautery. The woun d was sprayed with some topical thrombin. A wound VAC was then placed over the defect and secured. Hemostasis was assured. He tolerated the procedure well. He was taken to the recovery room in goo d condition. There were no complications. /[id number]/MODL
[2016-12-09] MEDS: HYDROmorphONE/DILAUDID 1 MG/ML SYR IVP PRN ×2 (10:31→11:05)
--- NOTE | 2016-12-09 10:56 | PCMIDPN ---
Assessment/Plan: Assessment/Plan: 1. LLE cellulitis with hematoma: s/p I & D - s/p wound vac now. - CX with ngtd so far. - blood cx ngtd -Wound examined with wound care team. Care and findings also discussed with surgery today as well. -Currently on Ancef IV. lead cargo mover to keflex for 7 days. -labs improved. -Will need wound vac to go home with. Not ready for skin graft per Surgery. Will have follow up with them. -Reviewed with surgery. they will f/u patient up and let us know if concerns arise upon wound vac change. - ID to sign off. please call if questions arise. Meds ancef 1g q8- Subjective: Afebrile. Feels the same. bedside wound vac change at present. Painful for patient. Denies sob, abd pain, or diarrhea. Objective: Vital Signs Temp Pulse Resp BP Pulse Ox 36.9 C 72 18 120/79 94 12/09/16 08:00 12/09/16 09:04 12/09/16 08:00 12/09/16 09:04 12/09/16 08:00 Laboratory Results 12/09/16 05:11 12/09/16 05:11 12/08/16 12/09/16 12/10/16 05:59 05:59 05:59 Intake Total 150 500 140 Output Total 1 Balance 150 499 140 ESR 33 MM/HR (0-20) H 12/02/16 09:52 C-Reactive Protein 195.3 mg/L (<10.0) H 12/02/16 09:52 - Physical Exam General Appearance: alert, no apparent distress Respiratory: lungs clear Cardiac/Chest: regular rate, rhythm Extremities: swelling (LLE: large open wound with scattered few necrotic areas in wound bed. woound bed otherwise clean. no surrounding cellulitis to the leg otherwise. some decrease in swelling overall involvling the leg. skin warm to touch. ) Abdomen: normal bowel sounds, non-tender, soft, No distended Skin: No erythema ICD10 Worksheet Patient Problems: Problems Problem Status Onset Lower extremity cellulitis Acute Traumatic hematoma of lower leg with infection Acute
--- NOTE | 2016-12-09 11:09 | SOAPPROG ---
SOAP Progress Note Assessment/Plan: Assessment: 56 male with left leg wound after fall on coumadin off coumadin for several days/ last inr 1.5 on 12/03 risks and options fully discussed some copd risks and options fully discussed and he wishes to proceed Plan:left leg debrideent and wound vac 12/06/16 10:51 12/09/16 11:08 WOUND CLEAN BUT POOR GRANULATION / MAY EVENTUALLY NEED SECONDARY DEBRIDEMENT AND WILL EVENTUALLY NEED STSG WILL FOLLOW OUTPT WHEN ABLE TO GO HOME Objective: Vital Signs Temp Pulse Resp BP Pulse Ox 36.9 C 72 18 120/79 94 12/09/16 08:00 12/09/16 09:04 12/09/16 08:00 12/09/16 09:04 12/09/16 08:00 Laboratory Results 12/09/16 05:11 12/09/16 05:11 12/08/16 12/09/16 12/10/16 05:59 05:59 05:59 Intake Total 150 500 140 Output Total 1 Balance 150 499 140 PT 16.4 SEC (12.0-15.0) H 12/07/16 05:04 INR 1.32 (0.83-1.16) H 12/07/16 05:04 ICD10 Worksheet Patient Problems: Problems Problem Status Onset Lower extremity cellulitis Acute Traumatic hematoma of lower leg with infection Acute Cellulitis Acute
--- NOTE | 2016-12-09 11:11 | SOAPPROG ---
SOAP Progress Note Assessment/Plan: Assessment: Reagan is a 56yo M with a PMH of afib on coumadin who sustained trauma to his left lower extremity that formed a hematoma resulting in full thickness necrosis and that required further debridement in the OR on 12/06/16 and wound vac placement. Wound vac change today Continue wound vac until enough base to support a skin graft Appreciate ID for abx recommendation Dispo: to home on abx with home wound vac and nursing care. S: Patient being seen during wound vac change and in a considerable amount of pain. O: afebrile, alert and oriented Lateral LLE wound is clean with areas of granulation. Undermining laterally. Some areas of necrosis that may need further debridement at a later time. Seen and discussed with Dr. Ramirez. Objective: Vital Signs Temp Pulse Resp BP Pulse Ox 36.9 C 72 18 120/79 94 12/09/16 08:00 12/09/16 09:04 12/09/16 08:00 12/09/16 09:04 12/09/16 08:00 Laboratory Results 12/09/16 05:11 12/09/16 05:11 12/08/16 12/09/16 12/10/16 05:59 05:59 05:59 Intake Total 150 500 140 Output Total 1 Balance 150 499 140 PT 16.4 SEC (12.0-15.0) H 12/07/16 05:04 INR 1.32 (0.83-1.16) H 12/07/16 05:04 ICD10 Worksheet Patient Problems: Problems Problem Status Onset Lower extremity cellulitis Acute Traumatic hematoma of lower leg with infection Acute Cellulitis Acute
--- NOTE | 2016-12-09 11:47 | WOCRNPDOC ---
WOCRN Advanced Assessment Note - Skin Integrity Problem, Advanced Assess Left Lower Leg Dressing Type: Black Vac Foam (x1), Wound Vac Dressing Description: Clean/Dry, Intact Exudate Amount: Minimal Exudate Characteristic(s): Bloody Integumentary Issue Intervention: Dressing Changed, Silver Nitrate Application Marly Wound Tissue: Swollen, Painful/Tender Marly Wound Swelling: Moderate Wound Bed Color: Black, Red Wound Bed Constitution: Smooth Tissue, Undermining (2-3 oclock 1.5 cm ), Muscle , Fascia Wound Edges: Attached, Irregular Site Odor: None Site Measurement - Head-to-Toe Length X Width X Depth (cm): 19x8.1x2.4 Skin Integrity Problem Comment: Large surgical wound from hematoma evacuation. Hair marly wound clipped with clippers. 10 ml of lidicaine 4% was injected topically into the foam prior to the vac change. 30% of wound bed has small amounts of hematoma remaining. 20% fascia and the remainder smooth tissue/ granulation mix. Wound bed was flushed with ns. Hemostasis at superior wound margin obtained with silver nitrate. Marly wound skin was skin prepped and covered with drape. Wound bed was filled with 3 pieces of black foam. Patient can use medium simplace or block foam for next vac change. Vac restarted at - 125 mm Hg continuous suction without leaks. Patient was medicated with 0.8 mg of diluadid IV during proceedure as it was quite painful. Jefry Tovar and Nico all visualized wound bed. Vasiliy MARTINEZ assisted with change.
--- NOTE | 2016-12-09 15:00 | HOSPPROG ---
Hospitalist Progress Note Assessment/Plan: 1. skin and soft tissue infection left leg -s/p surgical debridement, appreciate surgery assistance -wound vac in place, discussed care plan and dispo with Dr Capps -on ancef, will change to PO per ID, likely in next 1-2 more days if doing well 2. macrocytic anemia and coagulopathy -iron studies, hemoccults ordered 3. history of atrial fibrillation -sinus rhythm 4. -acute on chronic respiratory failure with hypoxemia and evidence of probable chronic CO2 retention, BENI -discussed CPAPs in general, says compliant -has O2 compressor at home from [facility], but not sure if functioning, advised him to call [facility] as may be needed at discharge DVT prophy- lovenox PCP- discussed options in [facility] Dispo- likely > 2 more mdnts for wound care Objective: Vital Signs Temp Pulse Resp BP Pulse Ox 98.5 F 71 20 105/70 93 12/09/16 11:44 12/09/16 11:44 12/09/16 11:44 12/09/16 11:44 12/09/16 11:44 Microbiology 12/05/16 16:04 Gram Stain - Final Leg - Eswab Laboratory Results 12/09/16 05:11 12/09/16 05:11 12/08/16 12/09/16 12/10/16 11:59 11:59 11:59 Intake Total 150 640 Output Total 1 Balance 149 640 PT 16.4 SEC (12.0-15.0) H 12/07/16 05:04 INR 1.32 (0.83-1.16) H 12/07/16 05:04 ICD10 Worksheet Patient Problems: Problems Problem Status Onset Lower extremity cellulitis Acute Traumatic hematoma of lower leg with infection Acute Cellulitis Acute
[2016-12-09] MEDS: CEPHALEXIN 500 MG CAP PO SCH ×2 (17:09→23:11)
[2016-12-10 03:20] VITALS: RESP 18
[2016-12-10] MEDS: ACETAMINOPHEN 325 MG TAB PO PRN ×3 (03:41→14:53)
[2016-12-10] MEDS: oxyCODONE IR 5 MG TAB PO PRN ×3 (03:41→14:53)
[2016-12-10] MEDS: CEPHALEXIN 500 MG CAP PO SCH ×2 (06:30→13:00)
[2016-12-10 07:44] VITALS: BP 120/75; PULSE 73; TEMP 97.8; O2SAT 87
[2016-12-10] MEDS: FERRO-SEQUELS 65 MG TAB.ER PO SCH (08:10)
[2016-12-10] MEDS: SENNOSIDES/DOCUSATE SODIUM TAB PO SCH (08:10)
[2016-12-10] MEDS: METOPROLOL TARTRATE 50 MG TAB PO SCH (08:10)
[2016-12-10] MEDS: MULTIVITAMINS 1 EACH TAB PO SCH (08:10)
[2016-12-10] MEDS: POLYETHYLENE GLYCOL 3350 17 GM PKT PO SCH (08:11)
[2016-12-10] MEDS: VITAMIN B COMPLEX 1 EA CAP/TAB PO SCH (08:11)
[2016-12-10] MEDS: FUROSEMIDE 40 MG TAB PO SCH (08:11)
--- NOTE | 2016-12-10 09:50 | PDIAF ---
- Diagnosis Code Status: Full Code - Medication Management Discharge Medications: Medications to Continue on Transfer Dronedarone HCl [Multaq 400 mg (*)] 400 mg PO BIDMEAL 12/11/15 [Last Taken 12/02] Furosemide [Lasix 40 MG (*)] 40 mg PO DAILY 12/11/15 [Last Taken 12/02/16] Metoprolol Tartrate [Lopressor 100 mg (*)] 50 mg PO BID 12/11/15 [Last Taken ] Cephalexin [Keflex (*)] 500 mg PO Q6HRS #28 cap 12/10/16 [Last Taken Unknown] Iron/Vit C/Docusate [Rehan-Sequels 65 mg (*)] 1 each PO BID #60 tab.er 12/10/16 [Last Taken Unknown] Polyethylene Glycol 3350 [Miralax 17 gm (*)] 17 gm PO DAILY #1 btl 12/10/16 [ Last Taken Unknown] oxyCODONE IR [Oxycodone Ir (*)] 5 - 10 mg PO Q4 PRN #60 tab 12/10/16 [Last Taken Unknown] [employer] Antibiotics: keflex for a week Prison Antibiotic Stop Date: 12/16/16 Discharge Medications: Refer to the Discharge Home Medication list for PRN reason. PICC Care - Routine: N/A - Orders Services needed: Home Care, Registered Nurse, Physical Therapy Home Care Face to Face: I certify that this patient was under my care and that I had the required [id number] encounter meeting the encounter requirements on the discharge day. My findings support the fact that the patient is homebound as defined in CMS Chapter 7 Medicare Benefits Manual 30.1.1, The condition of the patient is such that there exists a normal inability to leave home and consequently, leaving home would require a considerable and taxing effort. Diet Recommendation: no restrictions on diet Diet Texture: Regular Texture Diet Fortune: Not applicable Wound Care Instructions: wound vac- call Dr Ramirez re instructions Activity/Weight Bearing Restrictions: as tolerated and per PT recommendations - Follow Up Care Current Providers and Referrals: Mulugeta Butler MD [Medical Doctor] - (NO FOLLOW UP NEEDED_ trauma service MD, will be following up with Dr Ramirez) Glenn Ramirez MD [Medical Doctor] - follow up in 1 week (CALL HIS OFFICE FOR APPT) NONE *PRIMARY CARE P,. [Unknown] - As per Instructions (need to set up a PCP, call Dr castano [facility]- [facility] Service Agent)
== END 2016-12-10 14:57 | disposition home health service (06) | DRG 572 ==
LOC: F1N 13:55 → F2N 12-05 17:50 → F3E 12-06 14:45
PROVIDERS: ADMIT Internal Medicine Pulmonary Disease; ATTEND Internal Medicine
PROC: 0JCP0ZZ Extirpation of Matter from Left Lower Leg Subcutaneous Tissue and Fascia, Open Approach (ICD-10-PCS; principal; 2016-12-05 15:00)
PROC: 0JBP0ZZ Excision of Left Lower Leg Subcutaneous Tissue and Fascia, Open Approach (ICD-10-PCS; principal; 2016-12-05 15:00)
PROC: 0JBP3ZZ Excision of Left Lower Leg Subcutaneous Tissue and Fascia, Percutaneous Approach (ICD-10-PCS; 2016-12-06 13:00)
DX: L03.116 Cellulitis of left lower limb (principal); S80.12XA Contusion of left lower leg, initial encounter; G47.33 Obstructive sleep apnea (adult) (pediatric); W18.43XA Slipping, tripping and stumbling without falling due to stepping from one level to another, initial encounter; I48.91 Unspecified atrial fibrillation; Z79.01 Long term (current) use of anticoagulants
CPT/HCPCS: 82607-90; 96365; 97110-GO; 97116-GP; 97161-GP; 97165-GO; J0330; J0690; J1170; J1335; J2001; J2250; J2370; J2405; J2704; J2765; J2780; J3010; J3370

== ENCOUNTER 2016-12-26 10:35 | Inpatient (IN) | payer OTHER ==
[2016-12-26] MEDS ORDERED: ADENOSINE 6 MG/2 ML VIAL IVP ONE ×2 (10:45→11:00)
[2016-12-26] MEDS ORDERED: DILTIAZEM 25 MG/5 ML VIAL IVP ONE ×2 (10:49→10:58)
--- NOTE | 2016-12-26 10:49 | CPEKG ---
Heart Rate: 196 RR Interval: 306 P-R Interval: 164 QRSD Interval: 78 QT Interval: 264 QTC Interval: 477 P Conception: 0 QRS Conception: 0 T Wave Conception: 111 EKG Severity - ABNORMAL ECG - EKG Impression: SUPRAVENTRICULAR TACHYCARDIA - atrial tachycardia EKG Impression: LOW VOLTAGE IN FRONTAL LEADS EKG Impression: REPOLARIZATION ABNORMALITY, PROB RATE RELATED Electronically Signed By: Jonathan Ingram 30-Dec-2016 07:39:32
[2016-12-26] MEDS ORDERED: ADENOSINE 6 MG/2 ML VIAL ONE (10:53)
--- NOTE | 2016-12-26 10:59 | EDPHY ---
HPI/HX/ROS/PE/MDM Narrative: CHIEF COMPLAINT: Rapid heart rate HPI: The patient is a 56 y/o male with a history of atrial fibrillation complaining of a rapid heart rate and dyspnea onset yesterday afternoon. He's had similar episodes previously that usually spontaneously resolve, but he has required electrical cardioversion at least once within the last year. He had an ablation last August for SVT, but this conflicts with our records, which report this ablation was for atrial fibrillation. We have no record of diagnosed SVT in this patient. He does not think he's had recurrent episodes of a rapid heart rate since that ablation. He says medications do not usually successfully convert the rhythm. He denies chest pain, but does complain of dyspnea that woke him repeatedly from sleep last night. His Coumadin was discontinued 2 weeks ago due to a left leg injury with cellulitis. REVIEW OF SYSTEMS: Aside from elements discussed in the HPI, a comprehensive 10-point review of systems was reviewed and is negative. PMH: Atrial fibrillation and SVT status post ablation 2015; obstructive sleep apnea; left leg cellulitis SOCIAL HISTORY: Works in [employer] at [employer] in [place]. Lives in [place]. PHYSICAL EXAM: General:Patient is alert, in no acute distress. ENT:Eyes are normal to inspection. ENT inspection normal. Neck: Normal inspection. Full range of motion. Respiratory:No respiratory distress. Breath sounds normal bilaterally. Cardiovascular: Tachycardic rate and rhythm. Strong peripheral pulses. Normal cap refill. Abdomen:The abdomen is nontender to palpation. There are no peritoneal signs. Back: Normal to inspection. No tenderness to palpation. Skin: Normal color. No rash. Warm and diaphoretic. Extremities: Normal appearance. Full range of motion. Neuro: Oriented x3. Normal motor function. Normal sensory function. ED Course: This is a 56 y/o male with a documented history of atrial fibrillation and reported history of SVT who presents with a rapid heart rate around 196. He is not currently on anticoagulants. He is diaphoretic on exam. It's unclear if his current rhythm is afib or SVT. Plan for IV, labs including TSH and troponin, EKG , and intervention to manage unstable rhythm. 1050: HR 196, BP 101/84. The 12 lead EKG was interpreted by myself. SVT, rate 196. See hard copy and/or "tracemaster" electronic copy for interpretation. 1054: 6mg IV adenosine administered. No change in rhythm. 1056: 12mg IV adenosine administered. Rapid ectopy developed for a few seconds, then rhythm returned to rapid rate. 1057: 10mg IV Diltazem administered. 1059: Additional 10mg IV Diltazem administered. 1101: Patient converted to sinus tachycardia. The 12 lead EKG was interpreted by myself. Sinus tachycardia. See hard copy and/ or "tracemaster" electronic copy for interpretation. Troponin elevated at 0.160. 1223: Consulted with Bayron, cardiology PA. They will evaluate him in the ED. 1250: Reassessed patient and discussed work up. He is feeling much better. He continues to have occasional PVCs on the 3-lead. 1318: PA Bayron assessing patient in the ED. 1415: Cardiology recommends admitting patient. 1443: Spoke with hospitalist service. Dr. Haywood accepts admission. - Data Points Laboratory Results: Laboratory Results 12/26/16 10:53 12/26/16 10:53 12/26/16 12/26/16 12/26/16 10:53 10:53 10:53 WBC 10.97 10^3/uL H 10^3/uL (3.80-9.50) RBC 3.71 10^6/uL L 10^6/uL (4.40-6.38) Hgb 12.7 g/dL L g/dL (13.7-17.5) Hct 37.9 % L % (40.0-51.0) MCV 102.2 fL H fL (81.5-99.8) MCH 34.2 pg H pg (27.9-34.1) MCHC 33.5 g/dL g/dL (32.4-36.7) RDW 13.4 % % (11.5-15.2) Plt Count 335 10^3/uL 10^3/uL (150-400) MPV 9.8 fL fL (8.7-11.7) Neut % (Auto) 59.2 % % (39.3-74.2) Lymph % (Auto) 29.4 % % (15.0-45.0) Cross % (Auto) 9.8 % % (4.5-13.0) Eos % (Auto) 0.6 % % (0.6-7.6) Baso % (Auto) 0.7 % % (0.3-1.7) Nucleat RBC Rel Count 0.0 % % (0.0-0.2) Absolute Neuts (auto) 6.50 10^3/uL 10^3/uL (1.70-6.50) Absolute Lymphs (auto) 3.22 10^3/uL H 10^3/uL (1.00-3.00) Absolute Monos (auto) 1.07 10^3/uL H 10^3/uL (0.30-0.80) Absolute Eos (auto) 0.07 10^3/uL 10^3/uL (0.03-0.40) Absolute Basos (auto) 0.08 10^3/uL 10^3/uL (0.02-0.10) Absolute Nucleated RBC 0.00 10^3/uL 10^3/uL (0-0.01) Immature Gran % 0.3 % % (0.0-1.1) Immature Gran # 0.03 10^3/uL 10^3/uL (0.00-0.10) Sodium 139 mEq/L mEq/L (134-144) Potassium 3.9 mEq/L mEq/L (3.5-5.2) Chloride 100 mEq/L mEq/L (97-110) Carbon Dioxide 23 mEq/l mEq/l (22-31) Anion Gap 16 mEq/L mEq/L (8-16) BUN 14 mg/dL mg/dL (7-23) Creatinine 1.0 mg/dL mg/dL (0.7-1.3) Estimated GFR > 60 Glucose 177 mg/dL H mg/dL (70-100) Calcium 9.4 mg/dL mg/dL (8.5-10.4) Troponin I 0.160 ng/mL H ng/mL (0.000-0.034) TSH 1.820 uIU/mL uIU/mL (0.465-4.680) Medications Given: Metoprolol Tartrate (Lopressor) 25 mg PO EDNOW ONE Stop: 12/26/16 14:13 Last Admin: 12/26/16 14:31 Dose: 25 mg Discontinued Medications Adenosine (Adenosine) 12 mg IVP EDNOW ONE Stop: 12/26/16 11:01 Last Admin: 12/26/16 10:50 Dose: 12 mg Adenosine (Adenosine) 6 mg IVP EDNOW ONE Stop: 12/26/16 10:46 Last Admin: 12/26/16 11:06 Dose: 6 mg Diltiazem HCl (Cardizem 25 Mg/5 Ml Vial) 10 mg IVP EDNOW ONE Stop: 12/26/16 10:50 Last Admin: 12/26/16 10:55 Dose: 10 mg Diltiazem HCl (Cardizem 25 Mg/5 Ml Vial) 10 mg IVP EDNOW ONE Stop: 12/26/16 10:59 Last Admin: 12/26/16 11:07 Dose: 10 mg Sodium Chloride (Ns) 1,000 mls @ 0 mls/hr IV EDNOW ONE; Wide Open PRN Reason: Protocol Stop: 12/26/16 11:01 Last Admin: 12/26/16 11:07 Dose: 1,000 mls General Time Seen by Provider: 12/26/16 10:47 Initial Vital Signs: Initial Vital Signs Temperature (C) 36.8 C 12/26/16 10:44 Heart Rate 196 H 12/26/16 10:44 Respiratory Rate 24 H 12/26/16 10:44 Blood Pressure 101/84 H 12/26/16 10:44 O2 Sat (%) 97 12/26/16 10:44 O2 Delivery Mode Nasal Cannula O2 (L/minute) 2 Allergies/Adverse Reactions: No Known Drug Allergies Allergy (Unknown, Verified 12/26/16 14:17) Home Medications: Medication Instructions Recorded Dronedarone HCl [Multaq 400 mg (*)] 400 mg PO BIDMEAL 12/11/15 Furosemide [Lasix 40 MG (*)] 40 mg PO DAILY 12/11/15 Metoprolol Tartrate [Lopressor 100 50 mg PO BID 12/11/15 mg (*)] Iron/Vit C/Docusate [Rehan-Sequels 1 each PO BID #60 tab.er 12/10/16 65 mg (*)] Polyethylene Glycol 3350 [Miralax 17 gm PO DAILY #1 btl 12/10/16 17 gm (*)] oxyCODONE IR [Oxycodone Ir (*)] 5 - 10 mg PO Q4 PRN #60 tab 12/10/16 Departure - Departure Disposition: [facility] Inpatient Acute Clinical Impression: SVT (supraventricular tachycardia) Condition: Fair Referrals: NONE *PRIMARY CARE P,. [Primary Care Provider] - As per Instructions Report Scribed for: Wil Jaramillo Report Scribed by: Swathi Waterman Date of Report: 12/26/16 Time of Report: 11:06 Physician Review and Approval Statement: Portions of this note were transcribed by an ED scribe. I personally performed the history, physical exam, and medical decision making; and confirm the accuracy of the information in the transcribed note.
[2016-12-26] MEDS ORDERED: NS 1,000 ML IV ONE (11:00)
[2016-12-26 11:14] LABS: ANION GAP 16 mEq/L (8-16); CALCIUM 9.4 mg/dL (8.5-10.4); CARBON DIOXIDE 23 mEq/l (22-31); CHLORIDE 100 mEq/L (97-110); GLOMERULAR FILTRATION RATE > 60; GLUCOSE 177 mg/dL (70-100); POTASSIUM 3.9 mEq/L (3.5-5.2); SODIUM 139 mEq/L (134-144)
[2016-12-26 11:26] LABS: % IMMATURE GRANULYOCYTES 0.3 % (0.0-1.1); ABSOLUTE IMMATURE GRANULOCYTES 0.03 10^3/uL (0.00-0.10); ADD DIFF? NO; ADD MORPH? NO; ADD SCAN? NO; ATYPICAL LYMPHOCYTE FLAG 10 (0-99); FRAGMENT RBC FLAG 10 (0-99); HEMATOCRIT 37.9 % (40.0-51.0); HEMOGLOBIN 12.7 g/dL (13.7-17.5); LEFT SHIFT FLG 0 (0-99); LIPEMIA HEMOLYSIS FLAG 80 (0-99); MEAN CELL HEMOGLOBIN 34.2 pg (27.9-34.1); MEAN CELL HEMOGLOBIN CONCENTR. 33.5 g/dL (32.4-36.7); MEAN CELL VOLUME 102.2 fL (81.5-99.8); MEAN PLATELET VOLUME 9.8 fL (8.7-11.7); PLATELET CLUMPS FLAG 0 (0-99); PLATELET COUNT 335 10^3/uL (150-400); RED BLOOD CELL COUNT 3.71 10^6/uL (4.40-6.38); RED CELL DISTRIBUTION WIDTH 13.4 % (11.5-15.2)
[2016-12-26] MEDS ORDERED: METOPROLOL TARTRATE 25 MG TAB PO ONE (14:12)
[2016-12-26] MEDS ORDERED: METOPROLOL TARTRATE 25 MG TAB ONE (14:26)
--- NOTE | 2016-12-26 15:25 | CPR ---
[f rep st] NONINVASIVE CARDIAC PROCEDURE REPORT INDICATION FOR PROCEDURE: The patient with known history of CAD with recent PCI with recurring ches t pressure. PRE: After obtaining informed consent and ensuring patient's n.p.o. status for caffeine for greater than 12 hours, patient was placed on electrocardiogram. Initial EKG showed sinus rhythm with first -degree AV block, normal axis, no significant ST or T-wave abnormalities suggesting of ischemia. In itial blood pressure of 130/80, saturation 94%. The patient denies of any chest pain or symptoms couch ggesting of ischemia. INJECTION: Patient was given Lexiscan followed by nuclear isotope. Patient reported mild headache with initial injection. Heart rate did increase up to 82 beats per minute and blood pressure droppe d down to 110/60, but no significant EKG changes. The patient was given caffeinated beverage, and w ithin 5 minutes patient reporting symptoms relieved. Vital signs: Blood pressure returned back to baseline and heart rate back down to 70 beats per minute, again no significant EKGs in the 5 minutes recovery post injection. At the current time, his vital signs are stable. He denies of any sympto ms suggesting of ischemia. IMPRESSION: A 56-year-old male with a known history of coronary artery disease with recent PCI of t he left anterior descending, having ongoing chest pressure, being evaluated for cardiac ischemia. N o significant EKG changes with Lexiscan, mild headache which resolved with caffeinated beverage. Vi jalen signs remained stable. He is in Nuclear Medicine at this time getting post stress imaging done. /[id number]/MODL
[2016-12-26] MEDS ORDERED: ONDANSETRON 4 MG/2 ML VIAL IVP PRN (16:44)
[2016-12-26] MEDS ORDERED: PROMETHAZINE HCL 25 MG/ML INJ IVP PRN (16:54)
--- NOTE | 2016-12-26 17:15 | GHP ---
[f rep st] HISTORY AND PHYSICAL DATE OF ADMISSION: 12/26/2016 CHIEF COMPLAINT: Palpitations. HISTORY: The patient is a 56-year-old male with a known history of atrial fibrillation status post ablation. He is followed by Dr. Teresa in [place]. He was hospitalized here earlier this month for a left leg infection which required surgical debridement. He continues to have a wound VAC in plac e but is off antibiotics. Plan is to return to surgery with Dr. Ramirez next month for a skin graft. He presented to the hospital after developing severe palpitations with a heart rate of 196. He was found to be in SVT in the emergency room, was initially given 6 of adenosine and then 12 of adenosin e without any result. They subsequently given 20 mg of IV diltiazem which converted him to sinus ta chycardia. Cardiology saw him in the emergency room and gave an additional dose of 25 mg p.o. metop rolol. He never had any chest pain or shortness of breath. He is now feeling back to normal. He d enies ever having previous stress testing or catheterization that he knows of. PAST MEDICAL HISTORY: 1. Atrial fibrillation, status post ablation. 2. Obstructive sleep apnea on CPAP. 3. Lower leg infection with wound VAC pending skin graft. MEDICATIONS: Please see computer record for full detailed list. ALLERGIES: No known drug allergies. SOCIAL HISTORY: No smoking. Drinks 2-3 Scotch every 2-3 days. He lives in [place]. REVIEW OF SYSTEMS: Complete review of systems obtained. Review of system is negative on constituti onal, HEENT, GI, pulmonary, cardiovascular, , hematology, skin, muscular, endocrine, psych except for positives as in HPI. FAMILY HISTORY: Reviewed, noncontributory to presenting complaint. PHYSICAL EXAMINATION: GENERAL: Well-developed, well-nourished male, in no acute distress. VITAL S IGNS: Temperature 36.8, pulse 98, blood pressure 120/87, satting 98% on room air. EYES: Normal conjunctivae. Pupils react to light. ENT: Normal ears, nose. Hearing intact. Norm al lips and teeth. Oropharynx moist. NECK: Trachea midline. No thyromegaly. CHEST: Normal resp iratory effort. LUNGS: Clear to auscultation bilaterally. CARDIOVASCULAR: Regular rate and rhyth m. No murmur. No extremity edema. ABDOMEN: Soft, nontender. No hepatosplenomegaly. SKIN: Warm , dry, intact. No rash. The patient has a dressing over his left leg wound with wound VAC intact. MUSCULOSKELETAL: No cyanosis or clubbing. Strength 5/5 upper and lower extremities. NEUROLOGIC: Cranial nerves intact. Normal sensation to light touch. PSYCH: Alert and oriented x3. Normal af fect. Normal judgment intact. Normal memory. LABORATORY DATA: White count 10.97, hematocrit 37.9, platelets 335, sodium 139, potassium 3.9, chlo ride 100, bicarb 23, BUN 14, creatinine 1.0, glucose 177, TSH is 1.82. Troponin 0.16. EKG reviewed by me. My personal interpretation, SVT with a heart rate of 196. MEDICAL RECORDS REVIEW: I reviewed medical records regarding recent hospitalization with leg infect ion and wound requiring surgical debridement. He left the hospital on antibiotics. Those are now c omplete. This case was discussed with Bayron Linton of Cardiology regarding plan for hospitaliza tion, including cycling troponins and ordering a stress test. He may adjust metoprolol dose. ASSESSMENT/PLAN: 1. Supraventricular tachycardia. Converted to normal sinus rhythm in the emergency room after IV a denosine IV diltiazem. Per Cardiology, he will be monitored overnight and follow up with his EP adwoa ríos in [place]. We will consider up titrating his beta-josie depending how he does overnight. 2. Troponin elevation. I suspect this is strain due to his rapid heart rate. We will check an ech ocardiogram. We will follow troponins serially. He needs an ischemic evaluation, either stress kassidy ting versus catheterization in the morning. 3. Atrial fibrillation status post previous ablation. We will continue his Multaq and metoprolol. He is off anticoagulation currently. 4. Leg wound with wound VAC in place. He is off antibiotics. According to the patient, this has b een doing well and he plans to follow up with Dr. Ramirez for skin grafting in the near future. 5. Obesity, BMI 36 with obstructive sleep apnea. We will continue CPAP at night. CODE STATUS: Full. ADMISSION STATUS: Will admit to observation. May be able to go home tomorrow if ischemic evaluatio n is negative. DEEP VENOUS THROMBOSIS PROPHYLAXIS: He is high risk. I will place on subcu Lovenox. /[id number]/MODL
--- NOTE | 2016-12-26 17:31 | GCON ---
[f rep st] CONSULTATION CARDIOLOGY CONSULTATION INDICATION FOR CARDIOLOGY CONSULTATION,: Apparent SVT with rates up to 196 beats per minute, patient with known history of paroxysmal atrial fibrillation. HISTORY OF PRESENT ILLNESS: The patient is a 56-year-old male, who has history of atrial fibrillation status post ablation. His primary energy conservation engineer is Dr. Chrissy Laurent at [facility], his rapid transit operator is Dr. Ney Teresa at [facility]. The patient also reports significant past history that includes BENI, and he has recently been discharged from the hospital with a progressive leg hematoma on his left lower extremity while on warfarin therapy. The patient reports of yesterday not feeling well; he has been under a great deal of stress, going through divorce with his . He does report that starting around 3 p.m., he felt his heart fluttering, causing some mild shortness of breath. He has felt this before in the past with history of atrial fibrillation, and decided to wait. He reports during the night, he was unable to sleep just due to having some orthopnea, even despite using his CPAP, and did not sleep well. He came to his work in [place] today, and reported no improvement in symptoms, with ongoing fatigue. He did call his rapid transit operator, Dr. Teresa, who told him to come to the emergency department for further evaluation. Upon arrival, he was noted to be in what appears to be a supraventricular tachycardia with heart rate up to [address] Jaramillo of the emergency department attempted to cardiovert initially with adenosine at 6, and then followed by 12 mg, with no success. The patient then was given IV Cardizem, and converted back to sinus rhythm, sinus tachycardia. The patient denies any chest pressure or pain throughout the evening, but does report some mild shortness of breath. Troponin levels that were drawn did show mild elevation at 0.160. He currently reports no chest pressure or pain, reports improvement in his orthopnea, denies of any PND, lightheadedness, near-syncope, or syncopal events with palpitations. Denies any symptoms suggestive of TIA or CVA. The patient reports he has not seen Dr. Laurent in multiple years, last time he had seen Dr. Teresa was 8 months ago. He is uncertain if he has ever had a stress test. He reports significant cardiac risk factors that include age and previous smoker. Uncertain what his lipid status is. Denies any significant family history of coronary artery disease. PAST MEDICAL HISTORY: Atrial fibrillation, paroxysmal; obstructive sleep apnea , on CPAP; recent left leg hematoma while on warfarin therapy. Patient currently has a Wound-VAC, and is being seen by Wound Care. PAST SURGICAL HISTORY: Includes previous atrial fibrillation ablation on August 17, 2014. FAMILY HISTORY: Patient denies of any significant family history of coronary artery disease at early onset, does report father of cancer. SOCIAL HISTORY: Patient lives in [place], he works at [employer], he is currently going through a divorce, he has 1 child. He drinks 2-3 drinks alcoholic beverage every day. Reports previous smoker, quitting in college. Denies any illicit drug use. ALLERGIES: Patient has no known drug allergies. HOME MEDICATIONS: Include oxycodone IR 5-10 mg p.o. q.4 hours p.r.n. MiraLAX 17 g p.o. daily. Metoprolol tartrate 50 mg p.o. b.i.d. 65 mg p.o. twice daily. Lasix 40 mg p.o. daily. Multaq 40 mg p.o. b.i.d. REVIEW OF SYSTEMS: A 10-point review of systems, all negative except as mentioned above. PHYSICAL EXAMINATION: GENERAL APPEARANCE: Moderately obese male. He is alert and oriented to person, place, time, and situation. Appears to be in no acute distress at this time. CURRENT VITAL SIGNS: Blood pressure of 111/ 65, heart rate 99, sinus rhythm on the monitor. Respirations 18, saturating 98 % on 2 L nasal cannula. HEENT: Head is normocephalic. Lips and tongue are pink and moist with no signs of cyanosis. Conjunctivae pink. NECK: Trachea is midline, +2 carotid pulses bilateral. No jugular vein distention. No carotid bruits. No auscultated bruits. RESPIRATORY: Lungs clear but diminished in bases bilateral. No rhonchi, rales or wheezes. No accessory muscle use, no intercostal muscle retraction noted. CARDIAC: Regular rate, regular rhythm, S1, S2, a 2/6 systolic murmur noted along the left sternal border. ABDOMEN: Soft, nontender, bowel sounds x 4 quadrants. No organomegaly. No palpable masses. SKIN: [place], warm, dry, no cyanosis, no clubbing, +1 to 2 peripheral edema bilateral lower extremities, left greater than right. Dressing to left lower extremity with Wound-VAC intact. No redness , swelling or drainage. VASCULAR: +2 carotids bilateral, +2 radials bilateral , +1 posterior tibial pulses bilateral. LABORATORY STUDIES: Laboratory studies drawn today show WBC of 10.97, hemoglobin 12.7, hematocrit of 37.9, platelet count 335. Sodium 139, potassium 3.9, chloride 100, CO2 of 23, BUN 14, creatinine 1.0, glucose 177, calcium 9.4, troponin 0.160, TSH 1.820. STUDIES: Initial electrocardiogram done in the emergency department shows supraventricular tachycardia, I have reviewed it with Dr. Ferrell of Cardiac Services and Dr. Ingram of Electrophysiology Services, was questioning if this supraventricular tachycardia could potentially be atrial tachycardia with rapid rate response versus atrial fibrillation with rapid ventricular response. ASSESSMENT AND PLAN: 1. Supraventricular tachycardia: Again, as mentioned above, reviewed the initial electrocardiogram with Dr. Ferrell, one of our cardiologists, and Dr. Ingram of our electrophysiology services, questioning possible atrial tachycardia with rapid ventricular response versus atrial fibrillation with rapid ventricular response. The patient is currently in sinus rhythm after Cardizem. Patient does report despite atrial fibrillation ablation, he did have multiple episodes of atrial fibrillation post procedure, and currently that is why he is on antiarrhythmic therapy. He reports he has not had multiple episodes in a long time. Laboratory studies done today show normal electrolyte and renal function , TSH within normal limits, mild anemia with hemoglobin at 12.7, hematocrit of 37.9. Patient does report no chest pressure or pain with symptoms, no lightheadedness or near syncope. He is currently not on any anticoagulation due to recent hematoma of his left lower extremity while on warfarin. He has a CHADS-VASc score of 0 at this time. We will not restart him on anticoagulation due to recent hematoma at this time. He is mildly tachycardia, and I would like to give him 25 mg of metoprolol tartrate now. We will have him undergo echocardiogram for further evaluation. We will continue on his home dose of Multaq. I am attempting to contact his rapid transit operator. 2. Elevated troponin: Patient reports no episodes of chest pressure, was noted to have mild troponin elevation of 0.160, possibly due to demand ischemia due to elevated ventricular heart rate. Again, we will get an echocardiogram for further evaluation, patient is uncertain when or if he has ever had a stress test. Recommend he be admitted overnight,place on continuous cardiac monitoring, cycle troponins, with consideration of him undergoing MPI stress testing in the morning. 3. Sleep apnea: Patient noted history of sleep apnea, he should continue CPAP at night during hospitalization. 4. Recent left leg hematoma with evacuation recently. Currently, has Wound- VAC. We will make a wound care consult for evaluation of wound and wound management. Thank you for this consultation. We will be glad to follow along with you. /[id number]/MODL MTDD
[2016-12-26] MEDS: DRONEDARONE HCL 400 MG TAB PO SCH (17:35)
--- NOTE | 2016-12-26 18:17 | ECHO ---
[id number] + + [address] : : [place] [address] : : [phone] + Adult Echocardiographic Report + --------+ :Name: MIKE CHAVIRA TStudy Date: 12/26/2016 02:28 PM : : Hospital Admission Number: [id number] Elinor tion: ER: :: 1960 Gender: Male Height: 73 i n : :Age: 56 yrs Race: WH Weight: 275 lb : :Reason For Study: Eval LV Fx : : BSA: 2.5 met ers2 : :History: New onset A-fib, now converted, HR 100 : + --------+ MMode/2D Measurements \T\ Calculations IVSd: 1.4 cm LVIDd: 5.1 cm FS: 34.6 % Ao root diam: 3.0 cm LVPWd: 1.5 cm LVIDs: 3.3 cm EDV(Teich): 123.2 ml ACS: 2.1 cm ESV(Teich): 45.1 ml LA dimension: 4.2 cm EF(Teich): 63.4 % Normal Measurement Values: + + :LVIDd (3.5-5.7cm) IVSd (0.6-1.1cm) LVPWd (0.6-1.1cm) Aortic Root (2.0-3.7cm)Left Atrium (1.5-4.0cm): :LV Vol(d) (76-115ml) LV Vol(s) (29-48ml) Ejec Fraction (50-65%)PV Angel Luis (0.6- 1.2m/s) TV Angel Luis (0.4-1.0m/s) : :MV E Angel Luis (0.8-1.0m/s)MV A Angel Luis (0.3-1.0m/s)LVOT Angel Luis (0.7-1.2m/s) Asc Ao Angel Luis ( 0.9-1.8m/s) : + + Doppler Measurements \T\ Calculations MV E max angel luis: Ao V2 max: LV V1 max: MR max angel luis: 84.9 cm/sec 111.0 cm/sec 77.0 cm/sec 354.0 cm/sec Ao max PG: LV V1 max PG: MR max P.9 mmHg 2.4 mmHg 50.1 mmHg PA V2 max: 86.9 cm/sec PA max P.0 mmHg Left Ventricle The left ventricle is normal in size. There is mild concentric left ventricular hypertrophy. The left ventricular ejection fraction is normal. There is Doppler evidence for diastolic dysfunction. Ejection Fraction = 65%. No regional wall motion abnormalities noted. Right Ventricle The right ventricle is normal in size and function. Atria The left atrium is severely dilated. Right atrial size is normal. Mitral Valve The mitral valve is normal in structure and function. There is mild mitral annular calcification. There is no evidence of mitral valve prolapse. There is no mitral valve stenosis. There is trace mitral regurgitation. Tricuspid Valve Normal tricuspid valve. No tricuspid regurgitation. Aortic Valve The aortic valve is normal in structure and function. The aortic valve is trileaflet. There is no aortic stenosis. There is no aortic insufficiency. Pulmonic Valve The pulmonic valve is normal in structure and function. There is no pulmonic valvular regurgitation. Great Vessels The aortic root is normal size. Pericardium/Pleural There is no pericardial effusion. Conclusion A complete two-dimensional transthoracic echocardiogram was performed (2D, M-mode, Doppler and color flow Doppler). The rhythm is atrail fibrillation. Normal LV size and function. There is mild concentric left ventricular hypertrophy. There is Doppler evidence for diastolic dysfunction. Ejection Fraction = 65%. No regional wall motion abnormalities noted. The right ventricle is normal in size and function. The left atrium is severely dilated. The aortic valve is trileaflet. Mild MAC. There is trace mitral regurgitation. No pericardial effusion. Final Reading Physician: Juan Brush signed on 12/26/2016 06:16 PM Ordering Physician: Bayron Linton Performed By: Edvin Duarte, LOCCS
[2016-12-26] MEDS: FERRO-SEQUELS 65 MG TAB.ER PO SCH (19:51)
[2016-12-26] MEDS: oxyCODONE IR 5 MG TAB PO PRN (19:51)
[2016-12-26] MEDS ORDERED: METOPROLOL TARTRATE 100 MG TAB PO SCH (21:00)
[2016-12-27] MEDS: oxyCODONE IR 5 MG TAB PO PRN ×4 (03:32→21:27)
[2016-12-27 05:20] LABS: % IMMATURE GRANULYOCYTES 0.1 % (0.0-1.1); ABSOLUTE IMMATURE GRANULOCYTES 0.01 10^3/uL (0.00-0.10); ADD DIFF? NO; ADD MORPH? NO; ADD SCAN? NO; ATYPICAL LYMPHOCYTE FLAG 20 (0-99); FRAGMENT RBC FLAG 0 (0-99); HEMATOCRIT 32.5 % (40.0-51.0); HEMOGLOBIN 10.5 g/dL (13.7-17.5); LEFT SHIFT FLG 0 (0-99); LIPEMIA HEMOLYSIS FLAG 80 (0-99); MEAN CELL HEMOGLOBIN CONCENTR. 32.3 g/dL (32.4-36.7); MEAN CELL VOLUME 105.2 fL (81.5-99.8); MEAN PLATELET VOLUME 9.7 fL (8.7-11.7); PLATELET CLUMPS FLAG 0 (0-99); PLATELET COUNT 230 10^3/uL (150-400); RED BLOOD CELL COUNT 3.09 10^6/uL (4.40-6.38); RED CELL DISTRIBUTION WIDTH 13.6 % (11.5-15.2)
[2016-12-27 05:37] LABS: ANION GAP 11 mEq/L (8-16); CALCIUM 8.7 mg/dL (8.5-10.4); CARBON DIOXIDE 25 mEq/l (22-31); CHLORIDE 102 mEq/L (97-110); CHOLESTEROL 139 mg/dL (140-220); CHOLESTEROL/HDL RATIO 4.09 RATIO (1.00-4.97); CREATININE 0.8 mg/dL (0.7-1.3); GLOMERULAR FILTRATION RATE > 60; GLUCOSE 113 mg/dL (70-100); HIGH DENSITY LIPOPROTEIN 34 mg/dL (40-65); LDL/HDL RATIO 2.15 RATIO (1.00-3.64); LOW DENSITY LIPOPROTEIN 73 mg/dL (80-100); MAGNESIUM 1.8 mg/dL (1.6-2.3); NON-HIGH DENSITY LIPOPROTEIN 105 mg/dL (90-129); POTASSIUM 3.8 mEq/L (3.5-5.2); SODIUM 138 mEq/L (134-144); TRIGLYCERIDE 160 mg/dL (40-150); VERY LOW DENSITY LIPOPROTEINS 32 mg/dL (8-25)
[2016-12-27] MEDS ORDERED: LIDOCAINE 2% JELLY 5 ML TUBE TP SCH (08:00)
[2016-12-27] MEDS ORDERED: VISCOUS TP SCH (08:00)
[2016-12-27] MEDS ORDERED: LIDOCAINE 2% TP SCH (08:00)
[2016-12-27] MEDS: METOPROLOL TARTRATE 50 MG TAB PO SCH ×2 (08:22→20:15)
[2016-12-27] MEDS: ENOXAPARIN 40 MG/0.4 ML SYR SC SCH (08:23)
[2016-12-27] MEDS: DRONEDARONE HCL 400 MG TAB PO SCH (08:23)
[2016-12-27] MEDS ORDERED: LIDOCAINE HCL 4% TOPICAL SOLN 50ML TP SCH (09:45)
--- NOTE | 2016-12-27 11:56 | WOCRNPDOC ---
WOCRN Advanced Assessment Note - Skin Integrity Problem, Advanced Assess Left Lower Leg Surgical Wound/Incision Dressing Type: Black Vac Foam, Wound Vac Dressing Description: Intact Exudate Amount: Scant Exudate Color: Reddish/Yellow Exudate Characteristic(s): Serosanguinous Integumentary Issue Intervention: Dressing Changed Josie Wound Tissue: Erythema, Swollen Josie Wound Swelling: Mild Wound Bed Color: Red Wound Bed Constitution: Granulation Tissue (95%), Hypergranulation (5%) Wound Edges: Epithelizing Site Odor: None Site Measurement - Head-to-Toe Length X Width X Depth (cm): [id number] Skin Integrity Problem Comment: Patient is well-known to wound care from a prior admission for this wound. Existing vac dressing removed after application of 4% liquid Lidocaine, which was administered using a blunt needle into the vac foam then allowed to soak for 15 minutes. Wound bed is almost entirely comprised of beefy granulation tissue. There is a small area of hypergranulation noted in the most distal aspect of the wound, just along the margin. In addition, there was mild maceration josie-wound along the distal margin. Wound flushed w/ NS, and josie-wound skin prepped and draped. Replicare hydrocolloid dressing used over maceration distally, and over a small, superficial wound just medial to the surgical wound. One large piece of black granulofoam cut to fit the shape of the wound, then covered w/ drape. Vac set at 125mmHg, low, continuous w/ no leaks. Patient tolerated the whole dressing change very well. Will have nursing switch him over to a hosptial wound vac for the duration of his stay; he will retain the home vac in his room, and nursing can switch him over when he DCs. Report given to grain elevator motor starter Sandy.
[2016-12-27] MEDS ORDERED: REGADENOSON 0.4 MG/5 ML SYR IVP ONE (11:58)
--- NOTE | 2016-12-27 12:09 | CPEKG ---
Heart Rate: 107 RR Interval: 561 P-R Interval: 176 QRSD Interval: 84 QT Interval: 313 QTC Interval: 418 P [place]: 79 QRS [place]: 66 T Wave [place]: 63 EKG Severity - ABNORMAL ECG - EKG Impression: SUPRAVENTRICULAR TACHYCARDIA EKG Impression: NONSPECIFIC T ABNORMALITIES, LATERAL LEADS Electronically Signed By: Danish Caal 30-Dec-2016 07:59:03
--- NOTE | 2016-12-27 13:28 | CPR ---
[f rep st] NONINVASIVE CARDIAC PROCEDURE REPORT PROCEDURE PERFORMED: Lexiscan injection of Lexiscan myocardial perfusion imaging study. INDICATIONS FOR TESTIN. AFib with RVR. 2. Mildly elevated troponin, on a downward decline. PRE: After obtaining informed consent, ensuring patient's n.p.o. status, and for caffeine for great er than 12 hours, the patient was placed on electrocardiogram. Initial EKG showed atrial flutter 2: 1 with ventricular rate at 107 beats per minute, nonspecific T-wave abnormalities in inferolateral l vivien. The patient denies any chest pain, shortness of breath, or symptoms suggestive of ischemia. Blood pressure 120/80, saturating 96% on 3 L nasal cannula. INJECTION: The patient was given Lexiscan via slow IV push, followed by nuclear isotope. Within 1 minute, the patient reported some mild flushing sensation, but no chest pressure or pain. Heart rat e did increase up to about 110. No significant EKG changes noted with Lexiscan. Blood pressure rem ained stable at 124/80. After 5 minutes of recuperation, the patient reported all symptoms had subs ided. Vital signs stable. No EKG changes. IMPRESSION: A 56-year-old male admitted for supraventricular tachycardia with rapid ventricular res ponse, and what appeared to be either atrial tachycardia versus atrial fibrillation with rapid ventr icular response, converted back to sinus rhythm yesterday, unfortunately went into atrial flutter la st evening. Denies any chest pain or shortness of breath. Was noted to have a mildly elevated trop onin, on admission, which has been on a downward decline. Uncertain of when the last stress test wa s. Patient with no significant EKG changes with Lexiscan, and reporting a mild flushing sensation, which subsided within 5 minutes. Vital signs are stable. He is in Nuclear Medicine, getting post-s tress myocardial perfusion imaging done. /[id number]/MODL
[2016-12-27] MEDS: POLYETHYLENE GLYCOL 3350 17 GM PKT PO SCH (14:54)
[2016-12-27] MEDS: FERRO-SEQUELS 65 MG TAB.ER PO SCH ×2 (14:54→20:14)
--- NOTE | 2016-12-27 16:36 | HOSPPROG ---
Hospitalist Progress Note Assessment/Plan: * Atrial flutter - rate uncontrolled -d/w Bayron Linton - no cardioversion, just rate control -metoprolol added, possible change multaq to amiodarone -CHADS 2 vasc 0 - okay no anticoag * Troponin elevation - due to stress of rapid rate -stress test reviewed with cardiology - their interpretation is negative * Leg wound due to hematoma - now off anticoagulation -wound vac - wound looks great -follow-up with Dr. Ramirez for skin graft * Obesity - BMI 36 - with BENI -continue CPAP Subjective: No new complaints. NO cp or SOB Objective: Vital Signs Temp Pulse Resp BP Pulse Ox 36.4 C 109 H 20 122/82 H 96 12/27/16 13:30 12/27/16 13:30 12/27/16 13:30 12/27/16 13:30 12/27/16 13:30 Laboratory Results 12/27/16 04:17 12/27/16 04:17 12/26/16 12/27/16 12/28/16 05:59 05:59 05:59 Intake Total 2049 Output Total 200 Balance 1850 tele reviewed - aflutter with rapid rates stress test per radiology - wall motion abnormality - reviewed with cardiology - they think normal test - Physical Exam Constitutional: no apparent distress, appears nourished, not in pain Cardiovascular: regular rate and rhythym, no murmur, rub, or gallop Respiratory: no respiratory distress, no rales or rhonchi, clear to auscultation Gastrointestinal: normoactive bowel sounds, soft, non-tender abdomen, no palpable masses Skin: no rashes or abrasions, no fluctuance, no induration Neurologic: AAOx3, sensation intact bilaterally Psychiatric: interacting appropriately, not anxious, not encephalopathic, thought process linear ICD10 Worksheet Patient Problems: Problems Problem Status Onset SVT (supraventricular tachycardia) Acute Lower extremity cellulitis Acute Traumatic hematoma of lower leg with infection Acute
--- NOTE | 2016-12-27 18:07 | PDCARPN ---
Cardiology Progress Note Chief Complaint: Patient reports ongoing fatigue symptoms. 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 Reviewed initial electrocardiogram with Dr. Ferrell (division commander) and Dr. Ingram (electrophysiology) who feels that initial rhythm was either atrial tachycardia rapid ventricular response or AFib RVR. Patient did not convert with a initial dose adenosine at 6 mg or 12mg, did convert to sinus tachycardia with Cardizem bolus. Patient noted to have mildly elevated troponin peaking at 0.16, and downward decline echocardiogram done on admission showing normal LV size and function, mild concentric LVH, Doppler evidence of diastolic dysfunction, EF 65%, with no wall motion abnormalities. LA is severely dilated, mild MAC, trace MR, no pericardial effusion. Patient reporting only fatigue symptoms, with no episodes of chest pressure or pain during initial episode. MPI study done 12/27 showing infarct versus apical thinning involving the left ventricular apex without evidence of ischemia. Reviewed MPI imaging with Dr. Ferrell and Dr. Ahuja who feel no ischemia is noted on testing. Have increased patient's metoprolol dosage to 75 mg twice daily. Patient is currently not on anticoagulation, with history of recent hematoma which has caused cellulitis, and has a wound VAC. He has a chads Vasc score of 0. Today, patient unfortunately went back into atrial flutter 2:1, ventricular rate running in the 100s. He denies of any chest pressure, pressure, or shortness of breath. Troponin level this morning down to 0.104. MPI study done as mentioned above, vital signs are stable. 1. SVT/atrial tachycardia/a fib: Patient currently in a flutter 2:1, vital signs are stable, he remains tachycardia with heart rate in low 100s, but elevated up to 120-130 with exertion. Asymptomatic except for fatigue. Due to flutter, DC patient's Multaq, continue on increased dose of metoprolol. If necessary, consideration of starting him on a another antiarrhythmic, possibly amiodarone in morning if rate control is not better. Chads Vasc score of 0: Recent hematoma left lower extremity why on warfarin. Will continue him on aspirin therapy. 2. Elevated troponin level: Probably due to demand ischemia due to rapid ventricular response. Troponins trending downward. Stress test reviewed by Cardiology to be without signs of ischemia or infarction. EF normal with no wall motion abnormalities by echo. 3. Leg wound due to hematoma: Currently not anticoagulated. Wound care saw today, wound VAC in place 4. Sleep apnea: Patient has CPAP to use at night. 5. Obesity: Encouraged weight loss. 12/27/16 18:07 Subjective: Patient denies of any chest pressure, palpitations, lightheadedness, orthopnea, near-syncope or syncopal events. Reviewed/Discussed With: hospitalist (Dr Taylor), other (Dr Ferrell) Objective: Vital Signs (8 Hrs) Temp Pulse Resp BP Pulse Ox 12/27/16 16:55 37.2 C 110 H 18 123/74 H 95 Intake/Output (24 Hrs) 12/26/16 12/27/16 12/28/16 05:59 05:59 05:59 Intake Total 1200 Balance 1200 Intake: Oral (ml) 1200 Other: Number of Voids Toilet 1 Result Diagrams: 12/27/16 04:17 12/27/16 04:17 - Physical Exam Constitutional: no apparent distress, obese Ears, Nose, Mouth, Throat: moist mucous membranes Cardiovascular: regular rate and rhythm (A flutter on monitor), no murmurs, no rubs, no gallops, pulses symmetric bilat, No jugular vein distention, No carotid bruit Peripheral Pulses: 1+: dorsalis-pedis (R), dorsalis-pedis (L), 2+: carotid (R), carotid (L) Respiratory: other (Lungs are clear, but diminished in bases bilateral, no rhonchi, rales, or wheezing noted. No accessary muscle use, no intercostal muscle retraction noted) Gastrointestinal: normoactive bowel sounds Skin: warm, No no edema (+1 to 2 peripheral edema bilateral lower extremity) Neurologic: AAOx3 Psychiatric: cooperative, interactive, following commands ICD10 Worksheet Patient Problems: Problems Problem Status Onset SVT (supraventricular tachycardia) Acute Lower extremity cellulitis Acute Traumatic hematoma of lower leg with infection Acute
[2016-12-27] MEDS ORDERED: ADENOSINE 6 MG/2 ML VIAL IVP ONE (19:00)
[2016-12-27] MEDS ORDERED: ADENOSINE 6 MG/2 ML VIAL ONE ×2 (19:02→19:13)
[2016-12-27] MEDS ORDERED: DILTIAZEM 25 MG/5 ML VIAL IVP ONE ×2 (19:12→19:15)
--- NOTE | 2016-12-27 19:29 | CPEKG ---
Heart Rate: 212 RR Interval: 283 P-R Interval: 124 QRSD Interval: 80 QT Interval: 248 QTC Interval: 466 P [place]: 0 QRS [place]: 27 T Wave [place]: 104 EKG Severity - ABNORMAL ECG - EKG Impression: SUPRAVENTRICULAR TACHYCARDIA EKG Impression: VENTRICULAR BIGEMINY EKG Impression: LOW VOLTAGE IN FRONTAL LEADS EKG Impression: ABNRM R PROG, CONSIDER ASMI OR LEAD PLACEMENT EKG Impression: REPOLARIZATION ABNORMALITY, PROB RATE RELATED Electronically Signed By: Danish Caal 30-Dec-2016 07:58:23
--- NOTE | 2016-12-27 19:31 | CPEKG ---
Heart Rate: 211 RR Interval: 284 P-R Interval: 144 QRSD Interval: 84 QT Interval: 256 QTC Interval: 480 P [place]: 0 QRS [place]: 34 T Wave [place]: 101 EKG Severity - ABNORMAL ECG - EKG Impression: SUPRAVENTRICULAR TACHYCARDIA EKG Impression: LOW VOLTAGE IN FRONTAL LEADS EKG Impression: REPOLARIZATION ABNORMALITY, PROB RATE RELATED Electronically Signed By: Danish Caal 30-Dec-2016 07:58:15
--- NOTE | 2016-12-27 19:32 | CPEKG ---
Heart Rate: 108 RR Interval: 556 P-R Interval: 196 QRSD Interval: 80 QT Interval: 324 QTC Interval: 435 P [place]: 76 QRS [place]: 34 T Wave [place]: 87 EKG Severity - ABNORMAL ECG - EKG Impression: SINUS TACHYCARDIA EKG Impression: LOW VOLTAGE IN FRONTAL LEADS EKG Impression: NONSPECIFIC T ABNORMALITIES, LATERAL LEADS Electronically Signed By: Danish Caal 30-Dec-2016 08:01:10
[2016-12-27] MEDS: DILTIAZEM 125 MG in D5W 125 ML IV SCH (19:40)
[2016-12-27] MEDS ORDERED: DILTIAZEM 125 MG in D5W 125 ML IV SCH (19:45)
[2016-12-27] MEDS ORDERED: DILTIAZEM 25 MG/5 ML VIAL IVP SCH (19:45)
[2016-12-28] MEDS: oxyCODONE IR 5 MG TAB PO PRN ×3 (02:03→17:08)
[2016-12-28] MEDS: DILTIAZEM 125 MG in D5W 125 ML IV SCH (02:51)
[2016-12-28 05:30] LABS: ANION GAP 7 mEq/L (8-16); CALCIUM 8.9 mg/dL (8.5-10.4); CARBON DIOXIDE 29 mEq/l (22-31); CHLORIDE 99 mEq/L (97-110); CREATININE 0.9 mg/dL (0.7-1.3); GLOMERULAR FILTRATION RATE > 60; GLUCOSE 98 mg/dL (70-100); MAGNESIUM 1.8 mg/dL (1.6-2.3); POTASSIUM 4.8 mEq/L (3.5-5.2); SODIUM 135 mEq/L (134-144)
--- NOTE | 2016-12-28 06:07 | CPEKG ---
Heart Rate: 109 RR Interval: 550 P-R Interval: 180 QRSD Interval: 82 QT Interval: 340 QTC Interval: 458 P [place]: 87 QRS [place]: 35 T Wave [place]: 70 EKG Severity - OTHERWISE NORMAL ECG - EKG Impression: SUPRAVENTRICULAR TACHYCARDIA ,PVC'S, CONSIDERQ WAVE IN INFERIOR LEADS Electronically Signed By: Danish Caal 30-Dec-2016 08:00:55
[2016-12-28] MEDS: METOPROLOL TARTRATE 50 MG TAB PO SCH ×2 (09:05→20:09)
[2016-12-28] MEDS: FUROSEMIDE 40 MG TAB PO PRN (09:08)
[2016-12-28] MEDS: ENOXAPARIN 40 MG/0.4 ML SYR SC SCH (09:08)
[2016-12-28] MEDS: ASPIRIN EC 81 MG TAB PO SCH (09:08)
[2016-12-28] MEDS: FERRO-SEQUELS 65 MG TAB.ER PO SCH ×2 (09:08→20:10)
[2016-12-28] MEDS: POLYETHYLENE GLYCOL 3350 17 GM PKT PO SCH (09:09)
--- NOTE | 2016-12-28 10:34 | SOAPPROG ---
МАРИНА Progress Note Assessment/Plan: Assessment:1 svt..seems to be in atrial tachycardia ..he wants f/u with EPS in [place]..will continue BB and ca + blockers and hopefully stablize him and get him d/cd so he can get back to see his EPS Plan:1. change to po diltiazem today 12/28/16 10:12 Subjective: pt feeling better this AM...he appears to be in atrail tachycardia with a-v block and stable.. on BB and CA+ blockers...pt has EP MD in [place].. Objective: Vital Signs Temp Pulse Resp BP Pulse Ox 37.2 C 113 H 18 121/78 H 93 12/28/16 08:00 12/28/16 08:00 12/28/16 08:00 12/28/16 08:00 12/28/16 08:00 Laboratory Results 12/28/16 04:24 12/27/16 12/28/16 12/29/16 05:59 05:59 05:59 Intake Total 2059 Balance 2059 Physical Exam - Physical Exam Respiratory: lungs clear Cardiac/Chest: regular rate, rhythm, No edema ICD10 Worksheet Patient Problems: Problems Problem Status Onset SVT (supraventricular tachycardia) Acute Lower extremity cellulitis Acute Traumatic hematoma of lower leg with infection Acute
[2016-12-28] MEDS ORDERED: DILTIAZEM CD 180 MG CAP PO ONE (11:06)
[2016-12-28] MEDS: DILTIAZEM SR 90 MG CAP PO SCH ×2 (11:15→20:10)
--- NOTE | 2016-12-28 16:34 | HOSPPROG ---
Hospitalist Progress Note Assessment/Plan: * Atrial flutter - rate uncontrolled -no cardioversion, just rate control - f/u with his usual EP in [place] -metoprolol + diltiazem -Multaq stopped per cardiology -CHADS 2 vasc 0 - okay no anticoag - ASA * Troponin elevation - due to stress of rapid rate -stress test reviewed with cardiology - their interpretation is negative * Leg wound due to hematoma - now off anticoagulation -wound vac - wound looks great -follow-up with Dr. Ramirez for skin graft * Obesity - BMI 36 - with BENI -continue CPAP Subjective: No cp/sob. Objective: Vital Signs Temp Pulse Resp BP Pulse Ox 37.7 C 108 H 18 100/70 94 12/28/16 12:00 12/28/16 12:00 12/28/16 12:00 12/28/16 12:00 12/28/16 12:00 Laboratory Results 12/28/16 04:24 12/27/16 12/28/16 12/29/16 05:59 05:59 05:59 Intake Total 2059 Balance 2059 EKG viewed, my personal interpretation is - aflutter with mild rate elevation tele reviewed - a flutter with HR 110 US right leg - no DVT - Physical Exam Constitutional: no apparent distress, appears nourished, not in pain Cardiovascular: regular rate and rhythym, no murmur, rub, or gallop Respiratory: no respiratory distress, no rales or rhonchi, clear to auscultation Gastrointestinal: normoactive bowel sounds, soft, non-tender abdomen, no palpable masses Skin: no rashes or abrasions, no fluctuance, no induration Neurologic: AAOx3, sensation intact bilaterally Psychiatric: interacting appropriately, not anxious, not encephalopathic, thought process linear ICD10 Worksheet Patient Problems: Problems Problem Status Onset SVT (supraventricular tachycardia) Acute Lower extremity cellulitis Acute Traumatic hematoma of lower leg with infection Acute
[2016-12-28] MEDS ORDERED: CANN-EASE 2 GM TUBE TP ONE (17:32)
[2016-12-29] MEDS: oxyCODONE IR 5 MG TAB PO PRN ×4 (03:55→21:42)
[2016-12-29] MEDS: ASPIRIN EC 81 MG TAB PO SCH (08:42)
[2016-12-29] MEDS: METOPROLOL TARTRATE 50 MG TAB PO SCH ×2 (08:42→20:24)
[2016-12-29] MEDS: ENOXAPARIN 40 MG/0.4 ML SYR SC SCH (08:42)
[2016-12-29] MEDS: FERRO-SEQUELS 65 MG TAB.ER PO SCH ×2 (08:42→20:23)
[2016-12-29] MEDS: DILTIAZEM SR 90 MG CAP PO SCH ×2 (08:43→20:23)
[2016-12-29] MEDS: POLYETHYLENE GLYCOL 3350 17 GM PKT PO SCH (08:44)
[2016-12-29] MEDS: FUROSEMIDE 40 MG TAB PO PRN (08:50)
--- NOTE | 2016-12-29 09:47 | SOAPPROG ---
МАРИНА Progress Note Assessment/Plan: Assessment:1 svt..seems to be in atrial tachycardia ..he wants f/u with EPS in [place]..will continue BB and ca + blockers ...would walk around today and if he remains in 2:1 block he could be dc'd and f/u tommorrow with eps MD in [place].. Plan:1. po diltiazem today...increase activity and maybe d/c if he remains stable 12/28/16 10:12 12/29/16 09:43 Subjective: pt feels well ..one episode of 1:1 conduction tonight Objective: Vital Signs Temp Pulse Resp BP Pulse Ox 37.0 C 105 H 18 115/77 94 12/29/16 07:39 12/29/16 07:39 12/29/16 07:39 12/29/16 07:39 12/29/16 07:39 Laboratory Results 12/28/16 04:24 12/28/16 12/29/16 12/30/16 05:59 05:59 05:59 Intake Total 2059 1722.5 Balance 2059 1722.5 ICD10 Worksheet Patient Problems: Problems Problem Status Onset SVT (supraventricular tachycardia) Acute Lower extremity cellulitis Acute Traumatic hematoma of lower leg with infection Acute
--- NOTE | 2016-12-29 16:04 | HOSPPROG ---
Hospitalist Progress Note Assessment/Plan: * Atrial flutter -rate control - on PO diltiazem and PO metoprolol -holding Multaq per cardiology -patient now desires EP study here - Dr. Dempsey to see in am -CHADS 2 vasc 0 - okay no anticoag - ASA * Troponin elevation - due to stress of rapid rate -stress test reviewed with cardiology - their interpretation is negative * Leg wound due to hematoma - now off anticoagulation -wound vac - wound looks great -follow-up with Dr. Ramirez for skin graft * Hypoxia with + ddimer -LLE US negative for DVT -patient adamant that hypoxia is chronic - has home O2 but doesn't use -consider CT chest rule out PE - patient states this has been done in past and negative * Obesity - BMI 36 - with BENI -continue CPAP Subjective: No complaints. Had palpiations and HR >200 last night while on toilet Objective: Vital Signs Temp Pulse Resp BP Pulse Ox 36.6 C 84 19 111/74 94 12/29/16 15:28 12/29/16 15:28 12/29/16 15:28 12/29/16 15:28 12/29/16 15:28 Laboratory Results 12/28/16 04:24 12/28/16 12/29/16 12/30/16 05:59 05:59 05:59 Intake Total 2059 1722.5 Balance 2059 1722.5 case d/w Dr. Raygoza - needs relatively urgent EP study. He would now like to do it here. NPO after midnight and Dr. Dempsey to see in am. tele reviewed - ongoing a flutter - Physical Exam Constitutional: no apparent distress, appears nourished, not in pain Cardiovascular: regular rate and rhythym, no murmur, rub, or gallop Respiratory: no respiratory distress, no rales or rhonchi, clear to auscultation Gastrointestinal: normoactive bowel sounds, soft, non-tender abdomen, no palpable masses Skin: no rashes or abrasions, no fluctuance, no induration Neurologic: AAOx3, sensation intact bilaterally Psychiatric: interacting appropriately, not anxious, not encephalopathic, thought process linear ICD10 Worksheet Patient Problems: Problems Problem Status Onset SVT (supraventricular tachycardia) Acute Lower extremity cellulitis Acute Traumatic hematoma of lower leg with infection Acute
[2016-12-29] MEDS: ACETAMINOPHEN 325 MG TAB PO PRN ×2 (17:07→21:42)
[2016-12-30] MEDS: ACETAMINOPHEN 325 MG TAB PO PRN ×5 (03:58→23:14)
[2016-12-30] MEDS: oxyCODONE IR 5 MG TAB PO PRN ×5 (03:59→23:13)
--- NOTE | 2016-12-30 08:35 | CPEKG ---
Heart Rate: 101 RR Interval: 594 P-R Interval: 176 QRSD Interval: 82 QT Interval: 328 QTC Interval: 426 P [place]: 80 QRS [place]: 10 T Wave [place]: 122 EKG Severity - ABNORMAL ECG - EKG Impression: SINUS TACHYCARDIA EKG Impression: MULTIFORM VENTRICULAR PREMATURE COMPLEXES EKG Impression: LOW VOLTAGE IN FRONTAL LEADS Electronically Signed By: Jonathan Ingram 31-Dec-2016 14:23:01
[2016-12-30] MEDS: METOPROLOL TARTRATE 50 MG TAB PO SCH ×3 (10:53→20:50)
[2016-12-30] MEDS: ENOXAPARIN 40 MG/0.4 ML SYR SC SCH ×2 (10:53→13:07)
[2016-12-30] MEDS: DILTIAZEM SR 90 MG CAP PO SCH ×3 (10:53→20:51)
[2016-12-30] MEDS: FERRO-SEQUELS 65 MG TAB.ER PO SCH ×2 (11:15→20:50)
[2016-12-30] MEDS: ASPIRIN EC 81 MG TAB PO SCH (11:15)
[2016-12-30] MEDS: POLYETHYLENE GLYCOL 3350 17 GM PKT PO SCH ×2 (11:16→13:08)
--- NOTE | 2016-12-30 11:53 | WOCRNPDOC ---
WOCRN Advanced Assessment Note - Skin Integrity Problem, Advanced Assess Left Lower Leg Surgical Wound/Incision Dressing Type: Black Vac Foam, Wound Vac Dressing Description: Clean/Dry, Intact Exudate Amount: Moderate Exudate Color: Red Exudate Characteristic(s): Bloody Integumentary Issue Intervention: Dressing Changed Marly Wound Tissue: Erythema, Hot Wound Bed Color: Red Wound Bed Constitution: Granulation Tissue Wound Edges: Attached Site Odor: None Site Measurement - Head-to-Toe Length X Width X Depth (cm): 18.5x7.6x0.6 Skin Integrity Problem Comment: Wound bed cleaned with NS. Two small areas of bleeding noted. Pressure applied with gauze. Skin prep applied and wound draped. Marly wound erythema mentioned and observed by RIYA Kong and RIYA Radford. One medium simplace applied to wound bed. Bumper applied to skin proximal to wound. Vac applied and suction resumed at -125mmHg continuous. No leak noted.
--- NOTE | 2016-12-30 14:08 | PDCARPN ---
Cardiology Progress Note Chief Complaint: No active cardiovascular complaints today Assessment/Plan: Assessment: Patient is a 56 y/o male with history of atrial fibrillation s/p ablation () with [id number] score of zero, BENI and CPAP, obesity, and fall/injury with large haematoma to the left lateral lower extremity. Ongoing work with wound care and surgery given pending need to have skin graft for said injury. Patient has been doing well, but pain to the injury site continues to be noted. Intermittent tachycardia (atrial fib/flutter and atrial tachycardia) has been noted. Surgery wanting to perform skin graft, and EP willing to have ablation for the aforementioned atrial arrhythimas. Patient to wanting to have EP with [facility] team (and not back in [place]) at this point in time. Stress testing yesterday without reversible patterns identified. Ejection fraction was mildly suppressed, but patient with irregular atrial rhythm. Recent echocardiogram with normal left ventricular systolic ejection fraction (this being a better assessment of the LVEF). No complaints of chest pains or pressure. No PND or orthopnea. Awareness of fast heart rate with ambulation. Plan: (1) Would proceed with surgery (skin grafting) when surgery is able (2) Resume therapy on anticoagulation when acceptable to surgery (3) If possible, cardiology will arrange for SUNNY with possible cardioversion this week - contingent on surgery outcome and ability to resume anticoagulation (4) Outpatient follow up with [facility] EP has been arranged as well as likely date to have second ablation (5) Maintain CPAP use as recommended (6) We will continue to follow this patient while in house Subjective: No cardiovascular complaints. Mild to moderate left lower extremity pain Reviewed/Discussed With: hospitalist, multidisciplinary team Objective: Vital Signs (8 Hrs) Temp Pulse Resp BP Pulse Ox 12/30/16 13:04 113 H 114/85 H 12/30/16 08:00 36.4 C 105 H 18 104/84 H 95 Intake/Output (24 Hrs) 12/29/16 12/30/16 12/31/16 05:59 05:59 05:59 Intake Total 1722.5 2100 Balance 1722.5 2100 Intake: Oral (ml) 1650 2100 IV Infused (ml) 72.5 Diltiazem 125 mg In D5w 72.5 125 ml @ Per Protocol IV CONT JAYA Rx#:[id number] Other: Intake Quantity Yes Yes Sufficient Number of Voids Toilet 5 1 Result Diagrams: 12/27/16 04:17 12/28/16 04:24 EKG: Atrial tachycardia Echocardiogram: LVEF was 65% with severe dilation of the LA. - Physical Exam Constitutional: WDWN, healthy appearing, no apparent distress Eyes: PERRL, EOMI Ears, Nose, Mouth, Throat: moist mucous membranes Cardiovascular: no murmurs, no rubs, no gallops, irregularly irregular Peripheral Pulses: 2+: dorsalis-pedis (R), dorsalis-pedis (L) Respiratory: clear to auscultate bilat, no crackles, no wheezes Gastrointestinal: normoactive bowel sounds Skin: rash Musculoskeletal: asymmetric calves, muscular tenderness Neurologic: AAOx3, CN II-XII grossly intact Psychiatric: cooperative, interactive, following commands ICD10 Worksheet Patient Problems: Problems Problem Status Onset SVT (supraventricular tachycardia) Acute Lower extremity cellulitis Acute Traumatic hematoma of lower leg with infection Acute
--- NOTE | 2016-12-30 16:34 | HOSPPROG ---
Hospitalist Progress Note Assessment/Plan: # atrial arrhythmias - s/p ablation for a-fib, presented with SVT (possibly a- tach), now in a-tach with 2:1 conduction - SUNNY/DCCV prior to dc if able to maintain AC uninterrupted after skin graft - cont metop and dilt per cards - EP study in a few weeks per Dr Ingram # LLE hematoma/cellulitis - s/p I&D, abx; now with wound vac - skin graft per Dr Ramirez - possibly soon # troponin elevation - per cards stress negative # hypoxia, +d-dimer - patient states hypoxia chronic; US neg for DVT - could consider CTA # obesity/BENI Subjective: no acute events; Objective: Vital Signs Temp Pulse Resp BP Pulse Ox 36.8 C 98 18 104/86 H 96 12/30/16 15:15 12/30/16 15:15 12/30/16 15:15 12/30/16 15:15 12/30/16 15:15 Laboratory Results 12/28/16 04:24 12/29/16 12/30/16 12/31/16 05:59 05:59 05:59 Intake Total 1722.5 2100 Balance 1722.5 2100 chart reviewed tele reviewed ECGs reviewed - Physical Exam Constitutional: no apparent distress, appears nourished Cardiovascular: no murmur, rub, or gallop, irregularly irregular Respiratory: no respiratory distress, no rales or rhonchi, clear to auscultation Gastrointestinal: normoactive bowel sounds, soft, non-tender abdomen, no palpable masses ICD10 Worksheet Patient Problems: Problems Problem Status Onset SVT (supraventricular tachycardia) Acute Lower extremity cellulitis Acute Traumatic hematoma of lower leg with infection Acute
--- NOTE | 2016-12-30 17:48 | PDCARCONS ---
Cardiology Consult Reason for Consult: EP Consult Chief Complaint: Atrial tachycardia Requesting Physician: Carol Smith History of Present Illness: 56 M, prior h.o. AFIB ablation in [address] [facility] [address] Dr. Tereas, had breakthrough AFIB post ablation and has been maintained on Multaq since then. Presenting with atrial tachycardia 196 bpm. Symptoms included palpitations and lightheadedness. No syncope Remains in AT with 2:1 conduction, rates 95-105 bpm. Has had open wound related to trauma L albarran that requires skin grafting. History Information - Allergies/Home Medication List Allergies/Adverse Reactions: No Known Drug Allergies Allergy (Unknown, Verified 12/26/16 14:17) Home Medications: Dronedarone HCl [Multaq 400 mg (*)] 400 mg PO BIDMEAL 12/11/15 [Last Taken 12/26] Furosemide [Lasix 40 MG (*)] 40 mg PO DAILY PRN 12/11/15 [Last Taken 12/02/16] Metoprolol Tartrate [Lopressor 100 mg (*)] 50 mg PO BID 12/11/15 [Last Taken ] Lidocaine 2% Jelly [Lidocaine 2% Jelly (*)] 1 rios TP MWF 12/26/16 [Last Taken ] I have personally reviewed and updated: family history, medical history, social history, surgical history - Past Medical History atrial fibrillation Additional medical history: Sleep apnea - Social History Smoking Status: Never smoked Physical Exam Temp Pulse Resp BP Pulse Ox 36.8 C 98 18 104/86 H 96 12/30/16 15:15 12/30/16 15:15 12/30/16 15:15 12/30/16 15:15 12/30/16 15:15 O2 (L/minute) 3 Constitutional: no apparent distress, appears nourished Eyes: PERRL (d), EOMI Cardiovascular: regular rate and rhythym, no murmur, rub, or gallop Respiratory: no respiratory distress, no rales or rhonchi, clear to auscultation Gastrointestinal: normoactive bowel sounds Skin: warm Musculoskeletal: full muscle strength Neurologic: AAOx3 Psychiatric: interacting appropriately, not anxious, thought process linear Lab and Imaging 12/27/16 04:17 12/28/16 04:24 WBC 7.78 10^3/uL (3.80-9.50) 12/27/16 04:17 RBC 3.09 10^6/uL (4.40-6.38) L 12/27/16 04:17 Hgb 10.5 g/dL (13.7-17.5) L 12/27/16 04:17 Hct 32.5 % (40.0-51.0) L 12/27/16 04:17 MCV 105.2 fL (81.5-99.8) H 12/27/16 04:17 MCH 34.0 pg (27.9-34.1) 12/27/16 04:17 MCHC 32.3 g/dL (32.4-36.7) L 12/27/16 04:17 RDW 13.6 % (11.5-15.2) 12/27/16 04:17 Plt Count 230 10^3/uL (150-400) D 12/27/16 04:17 MPV 9.7 fL (8.7-11.7) 12/27/16 04:17 Neut % (Auto) 65.5 % (39.3-74.2) 12/27/16 04:17 Lymph % (Auto) 21.9 % (15.0-45.0) 12/27/16 04:17 [place] % (Auto) 8.5 % (4.5-13.0) 12/27/16 04:17 Eos % (Auto) 3.5 % (0.6-7.6) 12/27/16 04:17 Baso % (Auto) 0.5 % (0.3-1.7) 12/27/16 04:17 Nucleat RBC Rel Count 0.0 % (0.0-0.2) 12/27/16 04:17 Absolute Neuts (auto) 5.10 10^3/uL (1.70-6.50) 12/27/16 04:17 Absolute Lymphs (auto) 1.70 10^3/uL (1.00-3.00) 12/27/16 04:17 Absolute Monos (auto) 0.66 10^3/uL (0.30-0.80) 12/27/16 04:17 Absolute Eos (auto) 0.27 10^3/uL (0.03-0.40) 12/27/16 04:17 Absolute Basos (auto) 0.04 10^3/uL (0.02-0.10) 12/27/16 04:17 Absolute Nucleated RBC 0.00 10^3/uL (0-0.01) 12/27/16 04:17 Immature Gran % 0.1 % (0.0-1.1) 12/27/16 04:17 Immature Gran # 0.01 10^3/uL (0.00-0.10) 12/27/16 04:17 D-Dimer 1.08 ug/mLFEU (0.00-0.50) H 12/28/16 04:24 Sodium 135 mEq/L (134-144) 12/28/16 04:24 Potassium 4.8 mEq/L (3.5-5.2) 12/28/16 04:24 Chloride 99 mEq/L (97-110) 12/28/16 04:24 Carbon Dioxide 29 mEq/l (22-31) 12/28/16 04:24 Anion Gap 7 mEq/L (8-16) L 12/28/16 04:24 BUN 10 mg/dL (7-23) 12/28/16 04:24 Creatinine 0.9 mg/dL (0.7-1.3) 12/28/16 04:24 Estimated GFR > 60 12/28/16 04:24 Glucose 98 mg/dL (70-100) 12/28/16 04:24 Calcium 8.9 mg/dL (8.5-10.4) 12/28/16 04:24 Magnesium 1.8 mg/dL (1.6-2.3) 12/28/16 04:24 Troponin I 0.104 ng/mL (0.000-0.034) H 12/27/16 04:17 Triglycerides 160 mg/dL (40-150) H 12/27/16 04:17 Cholesterol 139 mg/dL (140-220) L 12/27/16 04:17 Cholesterol Risk Factr 0.8 (0.2-1.0) 12/27/16 04:17 LDL Cholesterol, Calc 73 mg/dL (80-100) L 12/27/16 04:17 LDL Risk Factor 0.8 (0.2-1.0) 12/27/16 04:17 VLDL Cholesterol 32 mg/dL (8-25) H 12/27/16 04:17 Non-HDL Cholesterol 105 mg/dL (90-129) 12/27/16 04:17 HDL Cholesterol 34 mg/dL (40-65) L 12/27/16 04:17 LDL/HDL Ratio 2.15 RATIO (1.00-3.64) 12/27/16 04:17 Cholesterol/HDL Ratio 4.09 RATIO (1.00-4.97) 12/27/16 04:17 TSH 1.820 uIU/mL (0.465-4.680) 12/26/16 10:53 Visualized and Interpreted EKG results: Yes EKG additional interpertation: 12/26/16 @ 1047- AT with 1:1 conduction. 12/26/16 @ 1100 - AT with 2:1 conduction Telemetry: AT with 2:1 conduction A/P Assessment: 1. AFIB sp ablation at [facility] in 2014. Now presenting with sustained atrial tachycardia 2. Sleep apnea 3. Ulcer LLE requiring skin grafting Plan: 1. Atrial tachycardia sp AFIB ablation -CHADSVASC = 0 -Have requested records from Dr. Teresa at [facility] - will review -Reluctant to perform cardioversion because can't anticoagulate at this time. Would proceed with surgery (MPI did not show ischemia, V rates are controlled) but may have 1:1 conduction of AT to ventricles during surgery, may require IV beta blockers during surgery. Continue PO diltiazem and PO metoprolol for now. -Initiate anticoagulation post surgery when OK with Dr. Ramirez. Following this can have SUNNY cardioversion -Pt wants to switch from warfarin to Pradaxa post surgery -intermediate Rx for AT discussed - this is likely left AT related to AFIB ablation vs clockwise atrial flutter. Multaq failure. Can manage with amiodarone, sotalol or repeat ablation. Pros and cons of each d.w. patient. He wants to have ablation. Tentatively scheduled for February after his leg wound has healed completely. Risks of ablation d.w. him at length including - stroke, [place], tamponade, need for sternotomy, AE fistula, phrenic palsy, PV stenosis, AV block requiring pacemaker, bleeding, thrombosis, infection etc. Also offered for him to go back to for ablation, he would prefer for it to be done here Complex discussion, 1 hr with patient, >50% counseling Also keagan Austin, Dr. Shoemaker and Dr. Anibal Ramirez
[2016-12-30] MEDS: FUROSEMIDE 40 MG TAB PO PRN (18:05)
--- NOTE | 2016-12-30 21:05 | SOAPPROG ---
МАРИНА Progress Note Assessment/Plan: Assessment/Plan: 56 Y M c multiple cardiac issues being managed by IM and Cards who is well known to us from recent hospital stay on the trauma service for traumatic hematoma of L leg requiring surgical debridement and now with wound vac in place. Patient is currently set up for split thickness skin graft as an outpatient Jan 10. Spoke with Drs. Haywood and Sahara. If cleared from a cardiac standpoint could likely do STSG during this stay. Will tentatively plan for Friday. This would allow for earlier anticoagulation. Continue wound vac care for now. Will discuss with Dr. Ramirez. S: getting vac changed. O: alert,nad leg wound with excellent granulation. dusky rubor of lower leg. no odors. 12/30/16 21:00 Objective: Vital Signs Temp Pulse Resp BP Pulse Ox 36.9 C 98 11 L 102/71 95 12/30/16 20:00 12/30/16 20:51 12/30/16 20:00 12/30/16 20:51 12/30/16 20:00 Laboratory Results 12/28/16 04:24 12/29/16 12/30/16 12/31/16 05:59 05:59 05:59 Intake Total 1722.5 2100 1500 Balance 1722.5 2100 1500 ICD10 Worksheet Patient Problems: Problems Problem Status Onset SVT (supraventricular tachycardia) Acute Lower extremity cellulitis Acute Traumatic hematoma of lower leg with infection Acute
[2016-12-31] MEDS: ENOXAPARIN 40 MG/0.4 ML SYR SC SCH (08:13)
[2016-12-31] MEDS: DILTIAZEM SR 90 MG CAP PO SCH ×2 (08:14→21:45)
[2016-12-31] MEDS: FERRO-SEQUELS 65 MG TAB.ER PO SCH ×2 (08:14→21:45)
[2016-12-31] MEDS: ASPIRIN EC 81 MG TAB PO SCH (08:14)
[2016-12-31] MEDS: POLYETHYLENE GLYCOL 3350 17 GM PKT PO SCH (08:14)
[2016-12-31] MEDS: FUROSEMIDE 40 MG TAB PO PRN (08:16)
[2016-12-31] MEDS: METOPROLOL TARTRATE 50 MG TAB PO SCH ×2 (08:16→21:45)
[2016-12-31 09:32] LABS: % IMMATURE GRANULYOCYTES 0.3 % (0.0-1.1); ABSOLUTE IMMATURE GRANULOCYTES 0.02 10^3/uL (0.00-0.10); ADD DIFF? NO; ADD MORPH? NO; ADD SCAN? NO; ATYPICAL LYMPHOCYTE FLAG 10 (0-99); FRAGMENT RBC FLAG 0 (0-99); HEMATOCRIT 37.1 % (40.0-51.0); LEFT SHIFT FLG 0 (0-99); LIPEMIA HEMOLYSIS FLAG 80 (0-99); MEAN CELL HEMOGLOBIN 33.3 pg (27.9-34.1); MEAN CELL HEMOGLOBIN CONCENTR. 32.3 g/dL (32.4-36.7); MEAN CELL VOLUME 103.1 fL (81.5-99.8); MEAN PLATELET VOLUME 9.5 fL (8.7-11.7); PLATELET CLUMPS FLAG 0 (0-99); PLATELET COUNT 240 10^3/uL (150-400); RED CELL DISTRIBUTION WIDTH 12.9 % (11.5-15.2)
[2016-12-31 09:51] LABS: ANION GAP 15 mEq/L (8-16); CARBON DIOXIDE 23 mEq/l (22-31); CHLORIDE 99 mEq/L (97-110); CREATININE 0.7 mg/dL (0.7-1.3); GLOMERULAR FILTRATION RATE > 60; GLUCOSE 81 mg/dL (70-100); POTASSIUM 4.4 mEq/L (3.5-5.2); SODIUM 137 mEq/L (134-144)
--- NOTE | 2016-12-31 10:49 | PDCARPN ---
Cardiology Progress Note Chief Complaint: No complaints voiced this morning Assessment/Plan: Assessment: 12-31-16 Patient is doing well today. Mild, continued, left lower extremity pains noted. Plans for patient to proceed with surgery (skin graft) tomorrow. Will resume Pradaxa therapy when allowable by surgery. No cardiovascular complaints of chest pains or pressure. No PND or orthopnea. Patient is not mobile, and with this lack of activity, heart rates are reasonably controlled. EP wanting to have SUNNY with possible cardioversion ([id number] score of zero) prior to going home. 12-30-16 Patient is a 56 y/o male with history of atrial fibrillation s/p ablation () with [id number] score of zero, BENI and CPAP, obesity, and fall/injury with large haematoma to the left lateral lower extremity. Ongoing work with wound care and surgery given pending need to have skin graft for said injury. Patient has been doing well, but pain to the injury site continues to be noted. Intermittent tachycardia (atrial fib/flutter and atrial tachycardia) has been noted. Surgery wanting to perform skin graft, and EP willing to have ablation for the aforementioned atrial arrhythimas. Patient to wanting to have EP with [facility] team (and not back in [place]) at this point in time. Stress testing yesterday without reversible patterns identified. Ejection fraction was mildly suppressed, but patient with irregular atrial rhythm. Recent echocardiogram with normal left ventricular systolic ejection fraction (this being a better assessment of the LVEF). No complaints of chest pains or pressure. No PND or orthopnea. Awareness of fast heart rate with ambulation. Plan: (1) Graft surgery tomorrow (2) Regular and routine CPAP use (3) Cardiology will continue to follow this patient Subjective: No cardiovascular complaints Reviewed/Discussed With: hospitalist, multidisciplinary team Objective: Vital Signs (8 Hrs) Temp Pulse Resp BP Pulse Ox 12/31/16 08:16 115 H 108/84 H 12/31/16 08:14 115 H 108/84 H 12/31/16 07:14 37.2 C 117 H 18 133/88 H 94 12/31/16 04:00 36.8 C 97 12 121/98 H 95 Intake/Output (24 Hrs) 12/30/16 12/31/16 01/01/17 05:59 05:59 05:59 Intake Total 2099 1849 Balance 2099 1849 Intake: Oral (ml) 2099 1849 Other: Intake Quantity Yes Sufficient Number of Voids Toilet 1 2 Result Diagrams: 12/31/16 05:13 12/31/16 05:13 Telemetry: atrial tachycardia with variable block - Physical Exam Constitutional: WDWN, healthy appearing, obese Eyes: PERRL, EOMI Ears, Nose, Mouth, Throat: moist mucous membranes Cardiovascular: irregularly irregular, No systolic murmur Peripheral Pulses: 2+: dorsalis-pedis (R), dorsalis-pedis (L) Respiratory: clear to auscultate bilat, no crackles, no wheezes Gastrointestinal: normoactive bowel sounds Skin: erythema, induration, rash Musculoskeletal: muscular tenderness Neurologic: AAOx3, CN II-XII grossly intact Psychiatric: cooperative, interactive, following commands ICD10 Worksheet Patient Problems: Problems Problem Status Onset SVT (supraventricular tachycardia) Acute Lower extremity cellulitis Acute Traumatic hematoma of lower leg with infection Acute
--- NOTE | 2016-12-31 13:11 | HOSPPROG ---
Hospitalist Progress Note Assessment/Plan: 56 yo M w h/o AF and RLE wound atrial arrhythmias - s/p ablation for a-fib, presented with SVT (possibly a- tach), now in a-tach with 2:1 conduction - SUNNY/DCCV prior to dc if able to maintain AC uninterrupted after skin graft - cont metop and dilt per cards - EP study in a few weeks per Dr Juan Jose EVANS hematoma/cellulitis - s/p I&D, abx; now with wound vac - skin graft per Dr Ramirez -01/01 troponin elevation - per cards stress negative hypoxia, +d-dimer - patient states hypoxia chronic; US neg for DVT - could consider CTA obesity/BENI proph: had been pn pradaxa hold LMWH on AM Subjective: tele: no events (interp by me). case d/w dr mulligan Objective: Vital Signs Temp Pulse Resp BP Pulse Ox 36.8 C 84 18 102/73 96 12/31/16 11:29 12/31/16 11:29 12/31/16 11:29 12/31/16 11:29 12/31/16 11:29 Laboratory Results 12/31/16 05:13 12/31/16 05:13 12/30/16 12/31/16 01/01/17 05:59 05:59 05:59 Intake Total 2099 1849 Balance 2099 1849 - Physical Exam Constitutional: no apparent distress, appears nourished Eyes: PERRL, anicteric sclera Ears, Nose, Mouth, Throat: moist mucous membranes, hearing normal Cardiovascular: regular rate and rhythym, no murmur, rub, or gallop, No systolic murmur Respiratory: no respiratory distress, no rales or rhonchi Gastrointestinal: normoactive bowel sounds, soft, non-tender abdomen Genitourinary: no bladder fullness, No stovall in urethra Skin: warm, normal color Musculoskeletal: full muscle strength, other (wound vac RLE. no surrounding cellulitis) Neurologic: AAOx3, sensation intact bilaterally ICD10 Worksheet Patient Problems: Problems Problem Status Onset SVT (supraventricular tachycardia) Acute Lower extremity cellulitis Acute Traumatic hematoma of lower leg with infection Acute
--- NOTE | 2016-12-31 13:42 | CPEKG ---
Heart Rate: 193 RR Interval: 311 P-R Interval: 168 QRSD Interval: 80 QT Interval: 248 QTC Interval: 445 P [place]: 0 QRS [place]: 10 T Wave [place]: 101 EKG Severity - ABNORMAL ECG - EKG Impression: Atrial tachycardia with variable conduction EKG Impression: ABERRANT COMPLEX, POSSIBLY SUPRAVENTRICULAR EKG Impression: REPOLARIZATION ABNORMALITY, PROB RATE RELATED Electronically Signed By: Jonathan Ingram 31-Dec-2016 14:23:24
--- NOTE | 2016-12-31 13:51 | SOAPPROG ---
SOAP Progress Note Assessment/Plan: Assessment/Plan: 56 Y M c multiple cardiac issues being managed by IM and Cards who is well known to us from recent hospital stay on the trauma service for traumatic hematoma of L leg requiring surgical debridement and now with wound vac in place. Plan for STSG in OR tomorrow, tentatively at 14:30 per OR availability. Risks and options discussed. Will replace wound vac an leave on for about a week. Pre op abx ordered. NPO p mn. Consent in chart. Anticoagulants held. S: eating lunch. no complaints. O: alert,nad leg wound with excellent granulation yesterday, now under vac that is to good suction. 12/31/16 13:49 Objective: Vital Signs Temp Pulse Resp BP Pulse Ox 36.8 C 84 18 102/73 96 12/31/16 11:29 12/31/16 11:29 12/31/16 11:29 12/31/16 11:29 12/31/16 11:29 Laboratory Results 12/31/16 05:13 12/31/16 05:13 12/30/16 12/31/16 01/01/17 05:59 05:59 05:59 Intake Total 2099 1850 Balance 2100 1850 ICD10 Worksheet Patient Problems: Problems Problem Status Onset SVT (supraventricular tachycardia) Acute Lower extremity cellulitis Acute Traumatic hematoma of lower leg with infection Acute
[2016-12-31] MEDS: oxyCODONE IR 5 MG TAB PO PRN ×3 (13:57→19:02)
[2016-12-31] MEDS: ACETAMINOPHEN 325 MG TAB PO PRN ×2 (13:58→19:02)
--- NOTE | 2016-12-31 14:36 | ASMTCMCOM ---
CM Note CM Note Notes: Reviewed chart, spoke w/ RN. Plan for surgical graft today or tomorrow. Tenative plan for outpatien t ablation in 4-6 weeks. D/C plan to remain home w/ [facility] RN and PT. D/C date unclear. CM to follow. Date Signed: 12/31/2016 02:35 PM Electronically Signed By:Lachelle Irvin
[2017-01-01] MEDS: ACETAMINOPHEN 325 MG TAB PO PRN ×4 (01:39→22:49)
[2017-01-01] MEDS: oxyCODONE IR 5 MG TAB PO PRN ×4 (01:39→22:49)
[2017-01-01] MEDS ORDERED: ceFAZolin 2 GM/DEXTROSE 100 ML IV ONE ×2 (06:00→13:30)
[2017-01-01] MEDS: METOPROLOL TARTRATE 50 MG TAB PO SCH ×2 (07:52→20:52)
[2017-01-01] MEDS: DILTIAZEM SR 90 MG CAP PO SCH ×2 (07:53→20:51)
[2017-01-01] MEDS: FERRO-SEQUELS 65 MG TAB.ER PO SCH ×2 (07:53→20:51)
[2017-01-01] MEDS: POLYETHYLENE GLYCOL 3350 17 GM PKT PO SCH ×2 (07:54→20:43)
[2017-01-01] MEDS: ASPIRIN EC 81 MG TAB PO SCH (08:58)
--- NOTE | 2017-01-01 10:01 | HOSPPROG ---
Hospitalist Progress Note Assessment/Plan: 56 yo M w h/o AF and RLE wound atrial arrhythmias - s/p ablation for a-fib, presented with SVT (possibly a- tach), now in a-tach with 2:1 conduction - currently in sinus - cont metop and dilt per cards - EP study in a few weeks per Dr Juan Jose EVANS hematoma/cellulitis - s/p I&D, abx; now with wound vac - skin graft per Dr Ramirez -01/01 troponin elevation - per cards stress negative hypoxia, +d-dimer - patient states hypoxia chronic; US neg for DVT - could consider CTA obesity/BENI constipation: aggressive bowel regimen after surgery proph: had been pn pradaxa hold LMWH on AM Subjective: case d/w dr mulligan. plan for skin graft Objective: Vital Signs Temp Pulse Resp BP Pulse Ox 36.6 C 80 18 121/84 H 95 01/01/17 07:35 01/01/17 07:35 01/01/17 07:35 01/01/17 07:35 01/01/17 07:35 Laboratory Results 12/31/16 05:13 12/31/16 05:13 12/31/16 01/01/17 01/02/17 05:59 05:59 05:59 Intake Total 1850 275 Balance 1850 275 - Physical Exam Constitutional: no apparent distress, appears nourished Eyes: PERRL, anicteric sclera Ears, Nose, Mouth, Throat: moist mucous membranes, hearing normal Cardiovascular: regular rate and rhythym, no murmur, rub, or gallop Respiratory: no respiratory distress, no rales or rhonchi Gastrointestinal: normoactive bowel sounds, soft, non-tender abdomen Genitourinary: no bladder fullness, No stovall in urethra Skin: warm, normal color Musculoskeletal: full muscle strength, other (L leg in wound vac) Neurologic: AAOx3, sensation intact bilaterally ICD10 Worksheet Patient Problems: Problems Problem Status Onset SVT (supraventricular tachycardia) Acute Lower extremity cellulitis Acute Traumatic hematoma of lower leg with infection Acute
--- NOTE | 2017-01-01 11:17 | SOAPPROG ---
SOAP Progress Note Assessment/Plan: Assessment: doing well, now in normal sinus rhythm / ready to proceed with split- thickness skin graft to his left leg / risk and options fully discussed including graft failure and he wishes to proceed Plan: SPLIT-THICKNESS SKIN GRAFT TO LEFT LEG 01/01/17 11:16 Objective: Vital Signs Temp Pulse Resp BP Pulse Ox 36.6 C 80 18 121/84 H 95 01/01/17 07:35 01/01/17 07:35 01/01/17 07:35 01/01/17 07:35 01/01/17 07:35 Laboratory Results 12/31/16 05:13 12/31/16 05:13 12/31/16 01/01/17 01/02/17 05:59 05:59 05:59 Intake Total 1850 275 Balance 1850 275 ICD10 Worksheet Patient Problems: Problems Problem Status Onset SVT (supraventricular tachycardia) Acute Lower extremity cellulitis Acute Traumatic hematoma of lower leg with infection Acute
[2017-01-01] MEDS ORDERED: BUPIVACAINE 0.5% 30 ML SDV ONE ×3 (12:55→14:43)
[2017-01-01] MEDS ORDERED: MINERAL OIL 10 ML VIAL ONE (12:55)
[2017-01-01] MEDS ORDERED: THROMBIN (BOVINE) 20,000 UNIT SPRAY TP ONE (12:55)
[2017-01-01] MEDS ORDERED: LR 1,000 ML IV ONE (13:41)
[2017-01-01] MEDS ORDERED: MIDAZOLAM 2 MG/2 ML VIAL IVP ONE (13:41)
--- NOTE | 2017-01-01 13:44 | PDANEPAE ---
ANE History of Present Illness LLE wound vac now for closure ANE Past Medical History - Cardiovascular History Hx Hypertension: No Hx Arrhythmias: Yes Hx Chest Pain: No Hx Coronary Artery / Peripheral Vascular Disease: No Hx CHF / Valvular Disease: Yes Hx Palpitations: Yes - Pulmonary History Hx COPD: No Hx Asthma/Reactive Airway Disease: No Hx Recent Upper Respiratory Infection: No Hx Oxygen in Use at Home: No Hx Sleep Apnea: Yes Sleep Apnea Screening Result - Last Documented: Positive - Endocrine History Hx Diabetes: No Obesity: yes, severe - Chronic Pain History Chronic Pain: No ANE Review of Systems - Exercise capacity METS (RN): 4 METS ANE Patient History - Allergies Allergies/Adverse Reactions: No Known Drug Allergies Allergy (Unknown, Verified 12/26/16 14:17) - Home Medications Home medications: home medication list seen and reviewed Home Medications: Dronedarone HCl [Multaq 400 mg (*)] 400 mg PO BIDMEAL 12/11/15 [Last Taken 12/26] Furosemide [Lasix 40 MG (*)] 40 mg PO DAILY PRN 12/11/15 [Last Taken 12/02/16] Metoprolol Tartrate [Lopressor 100 mg (*)] 50 mg PO BID 12/11/15 [Last Taken ] Lidocaine 2% Jelly [Lidocaine 2% Jelly (*)] 1 rios TP MWF 12/26/16 [Last Taken ] - NPO status NPO Since - Liquids (Date): 01/01/17 NPO Since - Liquids (Time): 00:00 NPO Since - Solids (Date): 01/01/17 NPO Since - Solids (Time): 00:00 - Anes Hx Anes Hx: no prior problems - Smoking Hx Smoking Status: Never smoked ANE Labs/Vital Signs - Labs Result Diagrams: 12/31/16 05:13 12/31/16 05:13 - Vital Signs Blood Pressure: 108/70 Heart Rate: 63 Respiratory Rate: 20 O2 Sat (%): 95 Height: 185.42 cm Weight: 124.738 kg ANE Physical Exam - Airway Neck exam: FROM Mallampati Score: Class 2 Mouth exam: normal dental/mouth exam, maher - Pulmonary Pulmonary: no respiratory distress - Cardiovascular Cardiovascular: regular rate and rhythym - ASA Status ASA Status: III ANE Anesthesia Plan Anesthesia Plan: general endotracheal anesthesia
[2017-01-01] MEDS ORDERED: PROPOFOL 200 MG/20 ML VIAL ONE ×2 (13:48)
[2017-01-01] MEDS ORDERED: fentaNYL 100 MCG/2 ML INJ ONE ×2 (13:48→14:25)
[2017-01-01] MEDS ORDERED: ONDANSETRON 4 MG/2 ML VIAL ONE (14:09)
[2017-01-01] MEDS ORDERED: SUCCINYLCHOLINE CHLORIDE*ANESTHESIA ONLY*200 MG/10 ML SYR IVP ONE (14:09)
[2017-01-01] MEDS ORDERED: ROCURONIUM 100 MG/10 ML VIAL ONE (14:09)
[2017-01-01] MEDS ORDERED: SUGAMMADEX SODIUM 200 MG/2 ML VIAL IVP ONE (14:09)
[2017-01-01] MEDS ORDERED: HYDROmorphONE/DILAUDID 2 MG/ML INJ ONE (14:27)
[2017-01-01] MEDS ORDERED: ONDANSETRON 4 MG/2 ML VIAL IVP PRN (14:45)
[2017-01-01] MEDS ORDERED: NALOXONE HCL 0.4 MG/ML INJ IVP PRN ×2 (14:45)
[2017-01-01] MEDS ORDERED: ACETAMINOPHEN 500 MG TAB PO PRN (14:45)
[2017-01-01] MEDS ORDERED: HYDROmorphONE/DILAUDID 1 MG/ML INJ IVP PRN (14:45)
[2017-01-01] MEDS ORDERED: LR 500 ML IV PRN (14:45)
[2017-01-01] MEDS ORDERED: fentaNYL 100 MCG/2 ML INJ IVP PRN (14:45)
[2017-01-01] MEDS ORDERED: ALBUTEROL 3 ML DEYVIAL IH PRN (14:45)
--- NOTE | 2017-01-01 15:12 | POSTOPPROG ---
Post Op Note Date of Operation: 01/01/17 Surgeon: Glenn Ramirez Manager Gallery: Mamie Abdi Anesthesiologist: Emiliano Anesthesia: GET(General Endotracheal) Pre-op Diagnosis: traumatic injury to left lower extremity with infected hematoma Post-op Diagnosis: same Indication: s/p debridement of LLE Procedure: STSG, wound approximation, wound vac to left lower extremity Inf/Abcess present in the surg proc area at time of surgery?: No Depth: Superfical (Skin SQ) EBL: Minimal
--- NOTE | 2017-01-01 15:26 | PDCARPN ---
Cardiology Progress Note Chief Complaint: No complaints. Overnight, the patient converted to normal sinus rhythm from previous atrial arrhythmia Assessment/Plan: Assessment: 01-01-17 No cardiovascular complaints. Overnight, the patient's regular and routine use of Incentive Spirometry might have led to conversion back to normal sinus rhythm. Patient feeling well. No chest pains or pressure. No PND or orthopnea. Pending surgery later today. 12-31-16 Patient is doing well today. Mild, continued, left lower extremity pains noted. Plans for patient to proceed with surgery (skin graft) tomorrow. Will resume Pradaxa therapy when allowable by surgery. No cardiovascular complaints of chest pains or pressure. No PND or orthopnea. Patient is not mobile, and with this lack of activity, heart rates are reasonably controlled. EP wanting to have SUNNY with possible cardioversion ([id number] score of zero) prior to going home. 12-30-16 Patient is a 56 y/o male with history of atrial fibrillation s/p ablation () with [id number] score of zero, BENI and CPAP, obesity, and fall/injury with large haematoma to the left lateral lower extremity. Ongoing work with wound care and surgery given pending need to have skin graft for said injury. Patient has been doing well, but pain to the injury site continues to be noted. Intermittent tachycardia (atrial fib/flutter and atrial tachycardia) has been noted. Surgery wanting to perform skin graft, and EP willing to have ablation for the aforementioned atrial arrhythimas. Patient to wanting to have EP with [facility] team (and not back in [place]) at this point in time. Stress testing yesterday without reversible patterns identified. Ejection fraction was mildly suppressed, but patient with irregular atrial rhythm. Recent echocardiogram with normal left ventricular systolic ejection fraction (this being a better assessment of the LVEF). No complaints of chest pains or pressure. No PND or orthopnea. Awareness of fast heart rate with ambulation. Plan: (1) At present, no indication for SUNNY with possible cardioversion given return to normal sinus rhythm (2) Ongoing regular and routine use of IS (3) Would resume therapy on Pradaxa when allowable by surgery (4) Outpatient follow up with EP is scheduled Subjective: Patient feeling well today. Reviewed/Discussed With: hospitalist, multidisciplinary team Objective: Vital Signs (8 Hrs) Temp Pulse Resp BP Pulse Ox 01/01/17 13:44 63 20 108/70 95 01/01/17 11:35 36.7 C 63 20 108/70 95 01/01/17 07:35 36.6 C 80 18 121/84 H 95 Intake/Output (24 Hrs) 12/31/16 01/01/17 01/02/17 05:59 05:59 05:59 Intake Total 1850 275 Balance 1850 275 Intake: Oral (ml) 1850 275 Other: Weight 124.738 kg Intake Quantity Yes Sufficient Number of Voids Toilet 2 Result Diagrams: 12/31/16 05:13 12/31/16 05:13 Telemetry: normal sinus rhythm - Physical Exam Constitutional: WDWN, healthy appearing, no apparent distress Eyes: PERRL, EOMI Ears, Nose, Mouth, Throat: moist mucous membranes Cardiovascular: regular rate and rhythm, no murmurs, no rubs Peripheral Pulses: 2+: dorsalis-pedis (R), dorsalis-pedis (L) Respiratory: clear to auscultate bilat, no crackles, no wheezes Gastrointestinal: normoactive bowel sounds Skin: abrasion, erythema, rash Musculoskeletal: muscular tenderness Neurologic: AAOx3, CN II-XII grossly intact Psychiatric: cooperative, interactive, following commands ICD10 Worksheet Patient Problems: Problems Problem Status Onset SVT (supraventricular tachycardia) Acute Lower extremity cellulitis Acute Traumatic hematoma of lower leg with infection Acute
[2017-01-02] MEDS: oxyCODONE IR 5 MG TAB PO PRN ×4 (03:05→20:41)
[2017-01-02 05:14] LABS: % IMMATURE GRANULYOCYTES 0.3 % (0.0-1.1); ABSOLUTE IMMATURE GRANULOCYTES 0.02 10^3/uL (0.00-0.10); ADD DIFF? NO; ADD MORPH? NO; ADD SCAN? NO; ATYPICAL LYMPHOCYTE FLAG 10 (0-99); FRAGMENT RBC FLAG 0 (0-99); HEMATOCRIT 33.2 % (40.0-51.0); HEMOGLOBIN 10.8 g/dL (13.7-17.5); LEFT SHIFT FLG 0 (0-99); LIPEMIA HEMOLYSIS FLAG 80 (0-99); MEAN CELL HEMOGLOBIN 32.6 pg (27.9-34.1); MEAN CELL HEMOGLOBIN CONCENTR. 32.5 g/dL (32.4-36.7); MEAN CELL VOLUME 100.3 fL (81.5-99.8); MEAN PLATELET VOLUME 9.3 fL (8.7-11.7); PLATELET CLUMPS FLAG 0 (0-99); PLATELET COUNT 276 10^3/uL (150-400); RED BLOOD CELL COUNT 3.31 10^6/uL (4.40-6.38); RED CELL DISTRIBUTION WIDTH 12.6 % (11.5-15.2)
[2017-01-02 05:28] LABS: ANION GAP 10 mEq/L (8-16); CALCIUM 9.3 mg/dL (8.5-10.4); CARBON DIOXIDE 25 mEq/l (22-31); CHLORIDE 100 mEq/L (97-110); CREATININE 0.7 mg/dL (0.7-1.3); GLOMERULAR FILTRATION RATE > 60; GLUCOSE 143 mg/dL (70-100); POTASSIUM 4.9 mEq/L (3.5-5.2); SODIUM 135 mEq/L (134-144)
[2017-01-02] MEDS: POLYETHYLENE GLYCOL 3350 17 GM PKT PO SCH ×2 (09:04→20:37)
[2017-01-02] MEDS: ASPIRIN EC 81 MG TAB PO SCH (09:05)
[2017-01-02] MEDS: ACETAMINOPHEN 325 MG TAB PO PRN ×3 (09:05→20:41)
[2017-01-02] MEDS: FERRO-SEQUELS 65 MG TAB.ER PO SCH ×2 (09:06→20:37)
[2017-01-02] MEDS: METOPROLOL TARTRATE 50 MG TAB PO SCH ×2 (09:06→20:40)
[2017-01-02] MEDS: DILTIAZEM SR 90 MG CAP PO SCH ×2 (09:07→20:37)
--- NOTE | 2017-01-02 09:38 | SOAPPROG ---
SOAP Progress Note Assessment/Plan: Assessment: POD #1 s/p STSG to lateral LLE and wound vac placement after traumatic injury with infected hematoma to the LLE. No ambulation, graft fragile Donor site dressing change tomorrow Cont wound vac to suction Continue pain control S: no complaints today. Pain well controlled. O: Sitting up in bed Sinus rhythm Wound vac in place to lateral left calf with minimal serosang drainage. + Mobility of left toes + DP pulses Left thigh donor site with clean/dry dressing in place Objective: Vital Signs Temp Pulse Resp BP Pulse Ox 36.5 C 66 18 114/73 94 01/02/17 09:00 01/02/17 09:07 01/02/17 09:00 01/02/17 09:07 01/02/17 09:00 Laboratory Results 01/02/17 04:11 01/02/17 04:11 01/01/17 01/02/17 01/03/17 05:59 05:59 05:59 Intake Total 275 1150 Balance 275 1150 ICD10 Worksheet Patient Problems: Problems Problem Status Onset SVT (supraventricular tachycardia) Acute Lower extremity cellulitis Acute Traumatic hematoma of lower leg with infection Acute
[2017-01-02] MEDS: ENOXAPARIN 40 MG/0.4 ML SYR SC SCH (10:27)
--- NOTE | 2017-01-02 12:21 | PDCARPN ---
Cardiology Progress Note Chief Complaint: Patient doing well today. No active complaints Assessment/Plan: Assessment: 01-02-17 Patient doing well today. Yesterday, it was noted on telemetry that the patient had converted from atrial tachycardia to normal sinus rhythm. POD#1 for skin graft yesterday. Not on Pradaxa today (graft noted to be fragile). Limitations were imposed by surgery for patient's mobility (to allow graft to take). No voiced cardiovascular complaints of chest pains or pressure. Patient wanting to know if he should resume therapy on Multaq (this might have kept the patient out of the arrhythmia in the past, and he wanted to know should he resume this therapy). 01-01-17 No cardiovascular complaints. Overnight, the patient's regular and routine use of Incentive Spirometry might have led to conversion back to normal sinus rhythm. Patient feeling well. No chest pains or pressure. No PND or orthopnea. Pending surgery later today. 12-31-16 Patient is doing well today. Mild, continued, left lower extremity pains noted. Plans for patient to proceed with surgery (skin graft) tomorrow. Will resume Pradaxa therapy when allowable by surgery. No cardiovascular complaints of chest pains or pressure. No PND or orthopnea. Patient is not mobile, and with this lack of activity, heart rates are reasonably controlled. EP wanting to have SUNNY with possible cardioversion ([id number] score of zero) prior to going home. 12-30-16 Patient is a 56 y/o male with history of atrial fibrillation s/p ablation () with [id number] score of zero, BENI and CPAP, obesity, and fall/injury with large haematoma to the left lateral lower extremity. Ongoing work with wound care and surgery given pending need to have skin graft for said injury. Patient has been doing well, but pain to the injury site continues to be noted. Intermittent tachycardia (atrial fib/flutter and atrial tachycardia) has been noted. Surgery wanting to perform skin graft, and EP willing to have ablation for the aforementioned atrial arrhythimas. Patient to wanting to have EP with [facility] team (and not back in [place]) at this point in time. Stress testing yesterday without reversible patterns identified. Ejection fraction was mildly suppressed, but patient with irregular atrial rhythm. Recent echocardiogram with normal left ventricular systolic ejection fraction (this being a better assessment of the LVEF). No complaints of chest pains or pressure. No PND or orthopnea. Awareness of fast heart rate with ambulation. Plan: (1) No SUNNY or cardioversion (2) Would get the patient back on Pradaxa therapy when surgery is accepting of this therapy (3) Outpatient EP is already scheduled. Subjective: No complaints Reviewed/Discussed With: hospitalist, multidisciplinary team Objective: Vital Signs (8 Hrs) Temp Pulse Resp BP Pulse Ox 01/02/17 11:14 36.7 C 64 16 117/79 95 01/02/17 09:07 66 114/73 01/02/17 09:06 66 114/73 01/02/17 09:00 36.5 C 77 18 114/73 94 Intake/Output (24 Hrs) 01/01/17 01/02/17 01/03/17 05:59 05:59 05:59 Intake Total 275 1150 Balance 275 1150 Intake: Oral (ml) 275 350 IV Intake (ml) 800 Other: Weight 124.738 kg Intake Quantity Yes Yes Sufficient Number of Voids Toilet 4 Result Diagrams: 01/02/17 04:11 01/02/17 04:11 Telemetry: normal sinus rhythm - Physical Exam Constitutional: WDWN, healthy appearing, no apparent distress Eyes: PERRL, EOMI Ears, Nose, Mouth, Throat: moist mucous membranes Cardiovascular: regular rate and rhythm, no murmurs, no rubs, no gallops Peripheral Pulses: 2+: dorsalis-pedis (R), dorsalis-pedis (L) Respiratory: clear to auscultate bilat, no crackles, no wheezes Gastrointestinal: normoactive bowel sounds Skin: warm, erythema Musculoskeletal: muscular tenderness Neurologic: AAOx3, CN II-XII grossly intact Psychiatric: cooperative, interactive, following commands ICD10 Worksheet Patient Problems: Problems Problem Status Onset SVT (supraventricular tachycardia) Acute Lower extremity cellulitis Acute Traumatic hematoma of lower leg with infection Acute
--- NOTE | 2017-01-02 14:43 | HOSPPROG ---
Hospitalist Progress Note Assessment/Plan: 56 yo M w h/o AF and RLE wound atrial arrhythmias - s/p ablation for a-fib, presented with SVT (possibly a- tach), now in a-tach with 2:1 conduction - currently in sinus - cont metop and dilt per cards - plan for ablation 02/04 unclear if he needs anticoag going forward in that this is non AF SVT and chads vasc2 is zero LLE hematoma/cellulitis - s/p I&D, abx; now with wound vac - skin graft per Dr Ramirez troponin elevation - per cards stress negative hypoxia, +d-dimer - patient states hypoxia chronic; US neg for DVT obesity/BENI constipation: aggressive bowel regimen after surgery no bm in a number of days. given melvin concern for graft and susequent request that he not walk much, will hold off on aggressive bowel regimen for now proph: lmwh Subjective: tele: pvc's. no svt (interp by me). case d/w dr ramirez Objective: Vital Signs Temp Pulse Resp BP Pulse Ox 36.7 C 64 16 117/79 95 01/02/17 11:14 01/02/17 11:14 01/02/17 11:14 01/02/17 11:14 01/02/17 11:14 Laboratory Results 01/02/17 04:11 01/02/17 04:11 01/01/17 01/02/17 01/03/17 05:59 05:59 05:59 Intake Total 275 1150 Balance 275 1150 - Physical Exam Constitutional: no apparent distress, appears nourished Eyes: PERRL, anicteric sclera Ears, Nose, Mouth, Throat: moist mucous membranes, hearing normal Cardiovascular: regular rate and rhythym, no murmur, rub, or gallop Respiratory: no respiratory distress, no rales or rhonchi Gastrointestinal: normoactive bowel sounds, soft, non-tender abdomen Genitourinary: No sotvall in urethra Skin: warm, normal color Musculoskeletal: full muscle strength, other (wound vac c/d/i) Neurologic: AAOx3, sensation intact bilaterally Psychiatric: interacting appropriately, not anxious Lymph, Heme, Immunologic: no cervical LAD ICD10 Worksheet Patient Problems: Problems Problem Status Onset SVT (supraventricular tachycardia) Acute Lower extremity cellulitis Acute Traumatic hematoma of lower leg with infection Acute
--- NOTE | 2017-01-02 18:52 | GOP ---
[f rep st] OPERATIVE REPORT DATE OF OPERATION: 01/01/2017 SURGEON: Glenn Ramirez MD HR CLERK: Mamie Abdi PA-C ANESTHESIOLOGIST: Ricky Cummings MD PREOPERATIVE DIAGNOSIS: Open wound, left leg. POSTOPERATIVE DIAGNOSIS: Open wound, left leg. PROCEDURE PERFORMED: Wound debridement, rotation flap partial closure, and then split-thickness ski n graft. FINDINGS: Patient was found to have an 18 x 8 cm wound on the anterior left leg. DESCRIPTION OF PROCEDURE: Patient was taken to the operating room where he received satisfactory ge neral endotracheal anesthesia by Dr. Cummings. He was placed in supine position and prepped and rachna ped in the usual sterile fashion. The defect was debrided. The lateral skin flap was mobilized and rotated upward, and a good portion of the wound was closed directly with interrupted 3-0 Prolene ma ttress sutures. The wound was infiltrated with 0.5% Marcaine it. Next, a split-thickness skin jean t was taken from the anterior left thigh using a Troy dermatome and creating a 16 micron split-th ickness graft. The donor site was infiltrated with 0.5% Marcaine and dressed with some topical thro mbin and nonstick dressing. The skin graft was then meshed in a 1-1/2 to 1 manner, placed over the defect, and stapled in place with skin danna. Excess graft was excised. The wound was then dress ed with a wound VAC. Hemostasis was assured. There were no complications. Blood loss was negligib le. He was taken to the recovery room in good condition. /[id number]/MODL
[2017-01-03] MEDS: oxyCODONE IR 5 MG TAB PO PRN ×5 (01:09→19:22)
[2017-01-03] MEDS: ACETAMINOPHEN 325 MG TAB PO PRN ×5 (01:09→19:22)
[2017-01-03] MEDS: POLYETHYLENE GLYCOL 3350 17 GM PKT PO SCH (09:09)
[2017-01-03] MEDS: DILTIAZEM SR 90 MG CAP PO SCH ×2 (09:09→21:20)
[2017-01-03] MEDS: FERRO-SEQUELS 65 MG TAB.ER PO SCH ×2 (09:09→22:00)
[2017-01-03] MEDS: METOPROLOL TARTRATE 50 MG TAB PO SCH ×2 (09:10→21:20)
[2017-01-03] MEDS: ASPIRIN EC 81 MG TAB PO SCH (09:10)
[2017-01-03] MEDS: FUROSEMIDE 40 MG TAB PO PRN (09:15)
--- NOTE | 2017-01-03 09:29 | PDCARPN ---
Cardiology Progress Note Chief Complaint: No cardiovascular complaints this morning. Minor pain to the left lower extremity Assessment/Plan: Assessment: 01-03-17 Patient continues to feel well. No chest pains or pressure. No palpitations. Heart rates to elevate with activity (somewhat). Slower heart rates were noted overnight (concern to the staff). No symptoms were noted with the bradycardia. According to the patient, he might be in house through early next week. Given some questions that were brought up yesterday (about oral antiarrhythmic therapy), I had Dr. Sade Ingram discussion options for therapy (Multaq, Sotalol). Conclusion of the conversation was simply to resume Pradaxa therapy alone when acceptable to surgery. 01-02-17 Patient doing well today. Yesterday, it was noted on telemetry that the patient had converted from atrial tachycardia to normal sinus rhythm. POD#1 for skin graft yesterday. Not on Pradaxa today (graft noted to be fragile). Limitations were imposed by surgery for patient's mobility (to allow graft to take). No voiced cardiovascular complaints of chest pains or pressure. Patient wanting to know if he should resume therapy on Multaq (this might have kept the patient out of the arrhythmia in the past, and he wanted to know should he resume this therapy). 01-01-17 No cardiovascular complaints. Overnight, the patient's regular and routine use of Incentive Spirometry might have led to conversion back to normal sinus rhythm. Patient feeling well. No chest pains or pressure. No PND or orthopnea. Pending surgery later today. 12-31-16 Patient is doing well today. Mild, continued, left lower extremity pains noted. Plans for patient to proceed with surgery (skin graft) tomorrow. Will resume Pradaxa therapy when allowable by surgery. No cardiovascular complaints of chest pains or pressure. No PND or orthopnea. Patient is not mobile, and with this lack of activity, heart rates are reasonably controlled. EP wanting to have SUNNY with possible cardioversion ([id number] score of zero) prior to going home. 12-30-16 Patient is a 56 y/o male with history of atrial fibrillation s/p ablation () with [id number] score of zero, BENI and CPAP, obesity, and fall/injury with large haematoma to the left lateral lower extremity. Ongoing work with wound care and surgery given pending need to have skin graft for said injury. Patient has been doing well, but pain to the injury site continues to be noted. Intermittent tachycardia (atrial fib/flutter and atrial tachycardia) has been noted. Surgery wanting to perform skin graft, and EP willing to have ablation for the aforementioned atrial arrhythimas. Patient to wanting to have EP with [facility] team (and not back in [place]) at this point in time. Stress testing yesterday without reversible patterns identified. Ejection fraction was mildly suppressed, but patient with irregular atrial rhythm. Recent echocardiogram with normal left ventricular systolic ejection fraction (this being a better assessment of the LVEF). No complaints of chest pains or pressure. No PND or orthopnea. Awareness of fast heart rate with ambulation. Plan: (1) Resume Pradaxa when acceptable to surgery - aware that the graft is fragile, and will have surgery decide when this is allowable (2) Consider OT/PT visit with patient given his bedbound status (3) Outpatient visit with EP has been scheduled. Subjective: No cardiovascular complaints Reviewed/Discussed With: hospitalist, multidisciplinary team Objective: Vital Signs (8 Hrs) Temp Pulse Resp BP Pulse Ox 01/03/17 09:10 58 L 113/72 01/03/17 09:09 58 L 113/72 01/03/17 08:00 36.8 C 52 L 17 113/72 98 01/03/17 04:00 36.6 C 50 L 15 103/70 93 Intake/Output (24 Hrs) 01/02/17 01/03/17 01/04/17 05:59 05:59 05:59 Intake Total 1150 150 Output Total 1125 Balance 1150 -975 Intake: Oral (ml) 350 150 IV Intake (ml) 800 Output: Urine (ml) 1125 Urinal 1125 Other: Weight 124.738 kg Intake Quantity Yes Sufficient Number of Voids Toilet 4 Urinal 1 Result Diagrams: 01/02/17 04:11 01/02/17 04:11 Telemetry: normal sinus rhythm. Nocturnal rates were to 53 bpm (from review of telemetry) - Physical Exam Constitutional: WDWN, healthy appearing, no apparent distress Eyes: PERRL, EOMI Ears, Nose, Mouth, Throat: moist mucous membranes Cardiovascular: regular rate and rhythm, no murmurs, no rubs, no gallops Peripheral Pulses: 2+: dorsalis-pedis (R), dorsalis-pedis (L) Respiratory: clear to auscultate bilat, no crackles, no wheezes Gastrointestinal: normoactive bowel sounds Skin: warm, erythema Musculoskeletal: muscular tenderness Neurologic: AAOx3, CN II-XII grossly intact Psychiatric: cooperative, interactive, following commands ICD10 Worksheet Patient Problems: Problems Problem Status Onset SVT (supraventricular tachycardia) Acute Lower extremity cellulitis Acute Traumatic hematoma of lower leg with infection Acute
[2017-01-03] MEDS: ENOXAPARIN 40 MG/0.4 ML SYR SC SCH (10:08)
[2017-01-03] MEDS ORDERED: POLYETHYLENE GLYCOL 3350 17 GM PKT PO PRN (10:14)
[2017-01-03] MEDS ORDERED: MAGNESIUM HYDROXIDE 30 ML UDCUP PO PRN (10:14)
[2017-01-03] MEDS ORDERED: LACTULOSE 20 GM/30 ML UDCUP PO PRN (10:14)
[2017-01-03] MEDS ORDERED: BISACODYL 10 MG SUPP PR PRN (10:14)
--- NOTE | 2017-01-03 10:18 | SOAPPROG ---
SOAP Progress Note Assessment/Plan: Assessment: POD #2 s/p STSG to lateral LLE and wound vac placement after traumatic injury with infected hematoma to the LLE. Bed rest/no ambulation, graft fragile Donor site dressing change tomorrow Cont wound vac to suction Continue pain control Dispo: will stay over the weekend and we will reevaluate the graft next week with possible discharge at that time. S: no complaints today. Pain well controlled. O: Sitting up in bed Wound vac in place to lateral left calf with minimal serosang drainage. + Mobility of left toes + DP pulses Left thigh donor site with clean/dry dressing in place Objective: Vital Signs Temp Pulse Resp BP Pulse Ox 36.8 C 58 L 17 113/72 98 01/03/17 08:00 01/03/17 09:10 01/03/17 08:00 01/03/17 09:10 01/03/17 08:00 Laboratory Results 01/02/17 04:11 01/02/17 04:11 01/02/17 01/03/17 01/04/17 05:59 05:59 05:59 Intake Total 1150 150 Output Total 1125 Balance 1150 -975 ICD10 Worksheet Patient Problems: Problems Problem Status Onset SVT (supraventricular tachycardia) Acute Lower extremity cellulitis Acute Traumatic hematoma of lower leg with infection Acute
--- NOTE | 2017-01-03 16:24 | HOSPPROG ---
Hospitalist Progress Note Assessment/Plan: 56 yo M w h/o AF and LLE wound # Acute atrial arrhythmias - s/p ablation for a-fib, presented with SVT ( possibly a-tach), now in a-tach with 2:1 conduction TELE (personally reviewed and interpreted) sinus bradycardia - cont metop and dilt per cards - plan for ablation 02/04 - unclear if he needs anticoag going forward in that this is non AF SVT and chads vasc2 is zero # LLE hematoma/cellulitis - s/p I&D, abx- now with wound vac - WBC 6 this am - skin graft per Dr Ramirez - continue wound care/wound VAC # troponin elevation - per cards stress negative- no active chest pain # hypoxia, +d-dimer - Oxygen saturations 96% on 3 L- suspect atelectasis based on patient's body positioning and respiratory mechanics US neg for DVT - wean off O2 while awake - encourage IIS # obesity/BENI #constipation- increasing bowel regimen today #proph: lmwh # disposition> greater than 2 midnights as the patient requiring aggressive wound care postoperative I have discussed the case with the nurse we will up titrate bowel regimen today and work on constipation Subjective: Denies chest pain or shortness of breath Objective: Vital Signs Temp Pulse Resp BP Pulse Ox 36.8 C 54 L 17 107/67 95 01/03/17 15:53 01/03/17 15:53 01/03/17 15:53 01/03/17 15:53 01/03/17 15:53 Laboratory Results 01/02/17 04:11 01/02/17 04:11 01/02/17 01/03/17 01/04/17 05:59 05:59 05:59 Intake Total 2514 135 6884 Output Total 1125 1250 Balance 1150 -975 0 - Physical Exam Constitutional: chronically ill appearing, obese Eyes: anicteric sclera Ears, Nose, Mouth, Throat: moist mucous membranes Cardiovascular: regular rate and rhythym, bradycardia Respiratory: no respiratory distress, reduced air movement Gastrointestinal: normoactive bowel sounds Genitourinary: no bladder fullness Skin: warm Musculoskeletal: No asymmetric calves Neurologic: AAOx3 Psychiatric: interacting appropriately, not anxious Lymph, Heme, Immunologic: no cervical LAD ICD10 Worksheet Patient Problems: Problems Problem Status Onset SVT (supraventricular tachycardia) Acute Lower extremity cellulitis Acute Traumatic hematoma of lower leg with infection Acute
[2017-01-03] MEDS: SENNOSIDES/DOCUSATE SODIUM TAB PO SCH (22:00)
[2017-01-04] MEDS: POLYETHYLENE GLYCOL 3350 17 GM PKT PO SCH ×3 (00:37→21:42)
[2017-01-04] MEDS: oxyCODONE IR 5 MG TAB PO PRN ×5 (02:09→21:12)
[2017-01-04] MEDS: ACETAMINOPHEN 325 MG TAB PO PRN ×5 (02:10→21:11)
[2017-01-04 05:28] LABS: HEMATOCRIT 30.9 % (40.0-51.0); HEMOGLOBIN 10.1 g/dL (13.7-17.5); MEAN CELL HEMOGLOBIN 33.6 pg (27.9-34.1); MEAN CELL HEMOGLOBIN CONCENTR. 32.7 g/dL (32.4-36.7); MEAN CELL VOLUME 102.7 fL (81.5-99.8); RED BLOOD CELL COUNT 3.01 10^6/uL (4.40-6.38); RED CELL DISTRIBUTION WIDTH 13.1 % (11.5-15.2)
[2017-01-04] MEDS: DILTIAZEM SR 90 MG CAP PO SCH ×2 (08:52→21:15)
[2017-01-04] MEDS: SENNOSIDES/DOCUSATE SODIUM TAB PO SCH ×2 (08:53→21:13)
[2017-01-04] MEDS: METOPROLOL TARTRATE 50 MG TAB PO SCH ×2 (08:53→21:40)
[2017-01-04] MEDS: FERRO-SEQUELS 65 MG TAB.ER PO SCH ×2 (08:53→21:11)
[2017-01-04] MEDS: FUROSEMIDE 40 MG TAB PO PRN (08:56)
[2017-01-04] MEDS: ASPIRIN EC 81 MG TAB PO SCH (09:13)
[2017-01-04] MEDS: ENOXAPARIN 40 MG/0.4 ML SYR SC SCH (09:13)
--- NOTE | 2017-01-04 09:45 | SOAPPROG ---
SOAP Progress Note Assessment/Plan: Assessment/Plan: 56 Y M c multiple cardiac issues being managed by IM and Gary who is well known to us from recent hospital stay on the trauma service for traumatic hematoma of L leg requiring surgical debridement and wound vac. s/p STSG with vac placement. POD#3. On bedrest for graft precautions per Dr. Ramirez. Donor site dressing changed today during exam. Continue wound vac. Plan for d/c of wound vac/graft reveal on Friday. Seen and examined with Dr. Nascimento. Dispo: likely d/c on Friday after vac removal. S: pain controlled. no complaints. O: alert,nad vac to good suction. surrounding tissue is soft donor site clean with min serosanguinous oozing and some clot. no erythema. 01/04/17 09:42 Objective: Vital Signs Temp Pulse Resp BP Pulse Ox 36.8 C 56 L 20 108/64 96 01/04/17 08:00 01/04/17 08:53 01/04/17 08:00 01/04/17 08:53 01/04/17 08:00 Laboratory Results 01/04/17 04:49 01/02/17 04:11 01/03/17 01/04/17 01/05/17 05:59 05:59 05:59 Intake Total 150 1550 Output Total 1125 1450 Balance -975 100 ICD10 Worksheet Patient Problems: Problems Problem Status Onset SVT (supraventricular tachycardia) Acute Lower extremity cellulitis Acute Traumatic hematoma of lower leg with infection Acute
--- NOTE | 2017-01-04 10:32 | SOAPPROG ---
SOAP Progress Note Assessment/Plan: Assessment/ Plan: This is a 56 yr old male with AF s/p PVI, BENI, on CPAP, normal EF, severe LA enlargement undergoing wound care post hematoma. Pt converted from At to SR this admission. Post conversion, ideally he needs to be on OAC. However, considering his hematoma and related skin graft, currently we are holding off on it He is maintaining SR Currently on Dilt and Metoprolol. Continue current meds. Start pradaxa when OK with surgery. Call us with questions 01/04/17 10:29 Subjective: Pt is doing well. No palpitations Objective: Vital Signs Temp Pulse Resp BP Pulse Ox 36.8 C 56 L 20 108/64 96 01/04/17 08:00 01/04/17 08:53 01/04/17 08:00 01/04/17 08:53 01/04/17 08:00 Laboratory Results 01/04/17 04:49 01/02/17 04:11 01/03/17 01/04/17 01/05/17 05:59 05:59 05:59 Intake Total 150 1550 Output Total 1125 1450 Balance -975 100 Physical Exam - Physical Exam General Appearance: alert, no apparent distress EENT: PERRL/EOMI, pharynx normal Neck: non-tender, supple, normal inspection Respiratory: chest non-tender, lungs clear, normal breath sounds, No crackles, No rales, No rhonchi Cardiac/Chest: regular rate, rhythm, No edema, No gallop Abdomen: soft, No organomegaly Skin: normal color, warm/dry Extremities: normal range of motion Neuro/Psych: alert ICD10 Worksheet Patient Problems: Problems Problem Status Onset SVT (supraventricular tachycardia) Acute Lower extremity cellulitis Acute Traumatic hematoma of lower leg with infection Acute
--- NOTE | 2017-01-04 14:32 | ASMTCMCOM ---
CM Note CM Note Notes: Case management d/c poc remains home w/teacher home therapy and PT from [facility]. [facility] following patient during hospital stay. Tentative d/c for Friday w/wound vac from home potentially being discontinued prior to d/c. Case Management available if d/c needs change. Date Signed: 01/04/2017 02:31 PM Electronically Signed By:Jigna Yanez
--- NOTE | 2017-01-04 14:47 | HOSPPROG ---
Hospitalist Progress Note Assessment/Plan: DIAGNOSES: -acute atrial tachycardia, converted to sinus rhythm -ongoing care of leg wound status post evacuation of infected hematoma, and now status post skin graft, wound VAC in place; this is a fairly fragile wound state -history of atrial fibrillation status post ablation -history of sleep apnea, using CPAP PLANS: Continue store shopper and current cardiac medications Continue elevation of leg with wound VAC and very careful management of his skin graft and harvest site Continue CPAP Continue to hold on anticoagulation until surgery is confident that his skin graft will be stable SUBJECTIVE: [id number] pain at his surgical sites otherwise feels well. No shortness of breath, palpitations, angina type symptoms OBJECTIVE Vitals reviewed: Stable without fever Account Manager Relief, my review: Sinus rhythm Exam: alert oriented skin warm dry color ok resps not labored lungs clear BSs heart regular abd soft nondistended nontender, bowel sounds present limbs warm, no edema; his leg wounds are in dressings with wound VAC over the skin graft and large dressing over the harvest site, these dressings look good; the patient did show me a photographs from earlier this morning of his leg wounds at the harvest site and I do not see any signs of infection or necrosis iv site ok Objective: Vital Signs Temp Pulse Resp BP Pulse Ox 36.7 C 50 L 15 107/65 95 01/04/17 11:50 01/04/17 11:50 01/04/17 11:50 01/04/17 11:50 01/04/17 11:50 Laboratory Results 01/04/17 04:49 01/02/17 04:11 01/03/17 01/04/17 01/05/17 06:59 06:59 06:59 Intake Total 150 1550 Output Total 1125 1450 Balance -975 100 ICD10 Worksheet Patient Problems: Problems Problem Status Onset SVT (supraventricular tachycardia) Acute Lower extremity cellulitis Acute Traumatic hematoma of lower leg with infection Acute
[2017-01-05] MEDS: ACETAMINOPHEN 325 MG TAB PO PRN ×4 (02:35→21:17)
[2017-01-05] MEDS: oxyCODONE IR 5 MG TAB PO PRN ×4 (02:36→21:18)
[2017-01-05] MEDS: METOPROLOL TARTRATE 50 MG TAB PO SCH ×2 (07:53→21:56)
[2017-01-05] MEDS: DILTIAZEM SR 90 MG CAP PO SCH ×2 (07:54→21:22)
[2017-01-05] MEDS: SENNOSIDES/DOCUSATE SODIUM TAB PO SCH ×2 (07:54→21:56)
[2017-01-05] MEDS: FERRO-SEQUELS 65 MG TAB.ER PO SCH ×2 (07:54→21:17)
[2017-01-05] MEDS: ENOXAPARIN 40 MG/0.4 ML SYR SC SCH ×3 (07:55→16:52)
[2017-01-05] MEDS: ASPIRIN EC 81 MG TAB PO SCH (07:55)
[2017-01-05] MEDS: POLYETHYLENE GLYCOL 3350 17 GM PKT PO SCH ×2 (07:56→21:56)
--- NOTE | 2017-01-05 09:02 | SOAPPROG ---
SOAP Progress Note Assessment/Plan: Assessment/Plan: 56 Y M c multiple cardiac issues being managed by IM and Gary who is well known to us from recent hospital stay on the trauma service for traumatic hematoma of L leg requiring surgical debridement and wound vac. s/p STSG with vac placement. POD#4. No real change. On bedrest for graft precautions per Dr. Ramirez. Continue wound vac. Plan for d/c of wound vac/graft reveal on Friday. Hold anticoagulation for now. Dispo: likely d/c on Friday after vac removal. S: pain controlled. no complaints. O: alert,nad vac to good suction. surrounding tissue is soft donor site clean with min serosanguinous oozing and some clot. no erythema. 01/05/17 09:01 Objective: Vital Signs Temp Pulse Resp BP Pulse Ox 36.8 C 61 14 112/73 95 01/05/17 07:38 01/05/17 07:38 01/05/17 07:38 01/05/17 07:38 01/05/17 07:38 Laboratory Results 01/04/17 04:49 01/02/17 04:11 01/04/17 01/05/17 01/06/17 05:59 05:59 05:59 Intake Total 1550 1000 Output Total 1450 1825 700 Balance 100 -825 -700 ICD10 Worksheet Patient Problems: Problems Problem Status Onset SVT (supraventricular tachycardia) Acute Lower extremity cellulitis Acute Traumatic hematoma of lower leg with infection Acute
--- NOTE | 2017-01-05 15:37 | HOSPPROG ---
Hospitalist Progress Note Assessment/Plan: DIAGNOSES: -acute atrial tachycardia, converted to sinus rhythm -ongoing care of leg wound status post evacuation of infected hematoma, and now status post skin graft, wound VAC in place; this is a fairly fragile wound state -history of atrial fibrillation status post ablation -history of sleep apnea, using CPAP PLANS: Continue school bus monitor and current cardiac medications Continue elevation of leg with wound VAC and very careful management of his skin graft and harvest site Continue CPAP Continue to hold on anticoagulation until surgery is confident that his skin graft will be stable He will be due for change out of his dressings tomorrow or the next day, and I will review the wounds at that time SUBJECTIVE: Pain little bit less than yesterday otherwise feels well OBJECTIVE Vitals reviewed: Stable without fever Finishing Machine Operator Automatic, my review: Sinus rhythm Exam: alert oriented skin warm dry color ok resps not labored lungs clear BSs heart regular abd soft nondistended nontender, bowel sounds present limbs warm, no edema; his leg wounds are in dressings with wound VAC over the skin graft and large dressing over the harvest site, these dressings look good though there is some dried blood on the midportion of the harvest site dressing Objective: Vital Signs Temp Pulse Resp BP Pulse Ox 36.9 C 61 12 106/74 95 01/05/17 12:00 01/05/17 12:00 01/05/17 12:00 01/05/17 12:00 01/05/17 12:00 Laboratory Results 01/04/17 04:49 01/02/17 04:11 01/04/17 01/05/17 01/06/17 06:59 06:59 06:59 Intake Total 1550 1000 Output Total 1450 2188 700 Balance 100 -825 -700 ICD10 Worksheet Patient Problems: Problems Problem Status Onset SVT (supraventricular tachycardia) Acute Lower extremity cellulitis Acute Traumatic hematoma of lower leg with infection Acute
[2017-01-06] MEDS: oxyCODONE IR 5 MG TAB PO PRN ×4 (01:59→20:23)
[2017-01-06] MEDS: ACETAMINOPHEN 325 MG TAB PO PRN ×4 (01:59→20:23)
[2017-01-06] MEDS: ASPIRIN EC 81 MG TAB PO SCH (08:40)
[2017-01-06] MEDS: FERRO-SEQUELS 65 MG TAB.ER PO SCH ×2 (08:40→20:22)
[2017-01-06] MEDS: SENNOSIDES/DOCUSATE SODIUM TAB PO SCH ×2 (08:43→20:22)
[2017-01-06] MEDS: ENOXAPARIN 40 MG/0.4 ML SYR SC SCH (08:43)
[2017-01-06] MEDS: POLYETHYLENE GLYCOL 3350 17 GM PKT PO SCH ×2 (08:43→20:23)
[2017-01-06] MEDS: METOPROLOL TARTRATE 50 MG TAB PO SCH ×2 (08:44→20:23)
[2017-01-06] MEDS: DILTIAZEM SR 90 MG CAP PO SCH ×2 (08:44→20:25)
--- NOTE | 2017-01-06 09:48 | SOAPPROG ---
SOAP Progress Note Assessment/Plan: Assessment/Plan: 56 Y M c multiple cardiac issues being managed by IM and Cards who is well known to us from recent hospital stay on the trauma service for traumatic hematoma of L leg requiring surgical debridement and wound vac. s/p STSG with vac placement. POD#5. Donor site dressing changed. Vac removal tomorrow. Dispo: likely d/c tomorrow after vac removal. S: pain controlled. no complaints. O: alert,nad vac to good suction. surrounding tissue is soft donor site clean 01/06/17 09:47 Objective: Vital Signs Temp Pulse Resp BP Pulse Ox 36.6 C 60 20 109/68 97 01/06/17 08:00 01/06/17 08:00 01/06/17 08:00 01/06/17 08:00 01/06/17 08:00 Laboratory Results 01/04/17 04:49 01/02/17 04:11 01/05/17 01/06/17 01/07/17 05:59 05:59 05:59 Intake Total 1000 450 Output Total 1680 1300 Balance -825 -850 ICD10 Worksheet Patient Problems: Problems Problem Status Onset SVT (supraventricular tachycardia) Acute Lower extremity cellulitis Acute Traumatic hematoma of lower leg with infection Acute
--- NOTE | 2017-01-06 10:27 | HOSPPROG ---
Hospitalist Progress Note Assessment/Plan: This patient initially presented here with an infected hematoma caused by strep infection in his calve, which required extensive debridement. He is now here after further clean out surgery and skin graft to the calf. While here he has developed an atrial tachycardia which converted to sinus rhythm. There is also history of AFib and sleep apnea DIAGNOSES: -acute atrial tachycardia, converted to sinus rhythm and doing well with that now -ongoing care of leg wound status post evacuation of infected hematoma, and now status post skin graft to calve, wound VAC in place; this is a fairly fragile wound state -history of atrial fibrillation status post ablation, usually on chronic anticoagulation but this is currently held as he had this infected hematoma in his leg -history of sleep apnea, using CPAP PLANS: Continue satellite project site monitor and current cardiac medications Continue elevation of leg with wound VAC and very careful management of his skin graft and harvest site Anticipate probable removal of wound VAC tomorrow and possible discharge to home at that time Continue CPAP Continue to hold on anticoagulation until surgery is confident that his skin graft will be stable; I I have reviewed this in detail with Dr. Guy of Cardiology. His recommendation at the moment is that we will probably keep him off of anticoagulation until a Cardiology Clinic follow-up after discharge. This in order to ensure good viability of his skin graft as he had initially bled into the leg and this was an infected hematoma. SUBJECTIVE: Pain little bit less than yesterday otherwise feels well OBJECTIVE Vitals reviewed: Stable without fever Printing Plate Maker, my review: Sinus rhythm Exam: alert oriented skin warm dry color ok resps not labored lungs clear BSs heart regular abd soft nondistended nontender, bowel sounds present limbs warm, no edema; his leg wounds are in dressings with wound VAC over the skin graft and large dressing over the harvest site, these dressings look good though there is some dried blood on the midportion of the harvest site dressing Objective: Vital Signs Temp Pulse Resp BP Pulse Ox 36.6 C 60 20 109/68 97 01/06/17 08:00 01/06/17 08:00 01/06/17 08:00 01/06/17 08:00 01/06/17 08:00 Laboratory Results 01/04/17 04:49 01/02/17 04:11 01/05/17 01/06/17 01/07/17 06:59 06:59 06:59 Intake Total 1000 450 Output Total 1825 1300 Balance -825 -850 ICD10 Worksheet Patient Problems: Problems Problem Status Onset SVT (supraventricular tachycardia) Acute Lower extremity cellulitis Acute Traumatic hematoma of lower leg with infection Acute
[2017-01-07] MEDS: ACETAMINOPHEN 325 MG TAB PO PRN ×3 (01:01→11:44)
[2017-01-07] MEDS: oxyCODONE IR 5 MG TAB PO PRN ×3 (01:02→11:44)
[2017-01-07] MEDS: ENOXAPARIN 40 MG/0.4 ML SYR SC SCH (09:04)
[2017-01-07] MEDS: POLYETHYLENE GLYCOL 3350 17 GM PKT PO SCH (09:04)
[2017-01-07] MEDS: SENNOSIDES/DOCUSATE SODIUM TAB PO SCH (09:05)
[2017-01-07] MEDS: DILTIAZEM SR 90 MG CAP PO SCH (09:05)
[2017-01-07] MEDS: METOPROLOL TARTRATE 50 MG TAB PO SCH (09:06)
[2017-01-07] MEDS: ASPIRIN EC 81 MG TAB PO SCH (09:07)
--- NOTE | 2017-01-07 09:28 | SOAPPROG ---
SOAP Progress Note Assessment/Plan: Assessment/Plan: 56 Y M c multiple cardiac issues being managed by IM and Cards who is well known to us from recent hospital stay on the trauma service for traumatic hematoma of L leg requiring surgical debridement and wound vac. s/p STSG with vac placement. POD#6. Wound vac d/c'ed. Excellent graft take. Dressed both donor and recipient graft sites. Wound care and follow up instructions added to discharge plan tab. Likely d/c today with home nursing for dressing changes. Ok to start anticoagulation as needed. S: pain controlled. no complaints. O: alert,nad near 100% graft take donor site clean 01/07/17 09:25 01/07/17 09:27 Objective: Vital Signs Temp Pulse Resp BP Pulse Ox 37.0 C 67 18 119/70 96 01/07/17 08:00 01/07/17 09:06 01/07/17 08:00 01/07/17 09:06 01/07/17 08:00 Laboratory Results 01/04/17 04:49 01/02/17 04:11 01/06/17 01/07/17 01/08/17 05:59 05:59 05:59 Intake Total 450 650 Output Total 1300 600 500 Balance -850 50 -500 ICD10 Worksheet Patient Problems: Problems Problem Status Onset SVT (supraventricular tachycardia) Acute Lower extremity cellulitis Acute Traumatic hematoma of lower leg with infection Acute
[2017-01-07] MEDS: FERRO-SEQUELS 65 MG TAB.ER PO SCH (11:21)
[2017-01-07 13:26] VITALS: BP 116/69; PULSE 56; RESP 17; TEMP 98.3; O2SAT 95
--- NOTE | 2017-01-07 14:19 | PDIAF ---
- Diagnosis Diagnosis: skin graft Code Status: Full Code - Medication Management Discharge Medications: Medications to Continue on Transfer Furosemide [Lasix 40 MG (*)] 40 mg PO DAILY PRN 12/11/15 [Last Taken 12/02/16] Iron/Vit C/Docusate [Rehan-Sequels 65 mg (*)] 1 each PO BID #60 tab.er 12/10/16 [Last Taken 12/26/16] Polyethylene Glycol 3350 [Miralax 17 gm (*)] 17 gm PO DAILY #1 btl 12/10/16 [ Last Taken 12/26/16] oxyCODONE IR [Oxycodone Ir (*)] 5 - 10 mg PO Q4 PRN #60 tab 12/10/16 [Last Taken 12/25/16] Aspirin EC [Aspirin EC 81 mg (*)] 81 mg PO DAILY #1 tab 01/07/17 [Last Taken Unknown] Diltiazem Sr [Cardizem Sr] 180 mg PO BID #120 cap 01/07/17 [Last Taken Unknown] Metoprolol Tartrate [Lopressor 50 mg (*)] 75 mg PO BID #90 tab 01/07/17 [Last Taken Unknown] Discharge Medications: Refer to the Discharge Home Medication list for PRN reason. - Orders Services needed: Home Care, Registered Nurse, Physical Therapy, Occupational Therapy Home Care Face to Face: I certify that this patient was under my care and that I had the required [id number] encounter meeting the encounter requirements on the discharge day. My findings support the fact that the patient is homebound as defined in CMS Chapter 7 Medicare Benefits Manual 30.1.1, The condition of the patient is such that there exists a normal inability to leave home and consequently, leaving home would require a considerable and taxing effort. Wound Care Instructions: Wound care: To donor site on upper thigh: please change every other day using a nonstick contact layer such as adaptic, xeroform gauze, or mepilex and then dress over the top with gauze or abd. May then wrap with kerlix, LITTLE or both depending upon pt preference. To graft site: use xeroform layer over graft then dress with gauze and/or ABD and kerlix. - Follow Up Care Current Providers and Referrals: Glenn Ramirez MD [Medical Doctor] - follow up in 1 week (Please call the office to make an appointment. You will not have to have your visiting nurse come on the day of your appointment since we will be changing the dressing on that day. ) NONE *PRIMARY CARE P,. [Primary Care Provider] - As per Instructions Rodriguez Baum MD [Medical Doctor] -
--- NOTE | 2017-01-07 18:58 | GDS ---
[f rep st] DISCHARGE SUMMARY DISCHARGE DIAGNOSES: 1. Recent left lower leg hematoma. 2. History of atrial flutter/supraventricular tachycardia, status post ablation a couple years ago. 3. Mild troponin elevation with negative stress test. 4. Chronic hypoxia. 5. Obstructive sleep apnea. HISTORY: This is a 56-year-old male with a history of A flutter, status post ablation, had been on anticoagulation. He was admitted earlier for left leg hematoma that was drained. He was also sched uled for a skin graft placement. He presented with A flutter/SVT with heart rate in the 190s. HOSPITAL COURSE: The patient was admitted to [facility]. Cardiology was consulted. Medications were swit ched around, and Multaq was discontinued, and diltiazem was added to his metoprolol which was also i ncreased. He has remained in normal sinus rhythm since then. Discussions were made in terms of mike ing of another ablative procedure. This will be done after his leg heals so he can receive anticoag ulation. During his hospitalization he had a skin graft placement. This is doing quite well, and he has woun d care instructions on discharge. He will be discharged home with followup with Dr. Ramirez of [facility], as well as with Cardiology. We have elected not to anticoagulate the patient, as his FRANCISCA DS VASC 2 score is 0, and he is currently out of A flutter. This hematoma was started while he was on Coumadin. The risks of worsening this wound or having a new hematoma outweighs the small risk of stroke. He will be discharged home with home health. Greater than 30 minutes spent on discharge. /[id number]/MODL
--- NOTE | 2017-01-12 13:56 | GCON ---
[f rep st] CONSULTATION DATE OF CONSULTATION: 12/27/2016 HISTORY OF PRESENT ILLNESS: Patient is a 56-year-old male, who was admitted at this time for treatme nt of his atrial fibrillation. We were consulted because of his left leg wound. At present, he has a wound VAC on his leg and is scheduled for a skin graft in the near future. He is admitted at this time for evaluation of his palpitations and may need ablation and/or anticoagulation. PAST MEDICAL HISTORY: Includes atrial fibrillation with ablation. He has sleep apnea and has a left lower leg traumatic wound with a large degloving injury presently being treated with a wound VAC. MEDICATIONS: Listed in the chart. ALLERGIES: He has no major allergies. REVIEW OF SYSTEMS: Negative on a 10-point review of systems. He does drink but does not smoke and d enies any present coronary disease despite his atrial fibrillation. FAMILY HISTORY: Noncontributory. PHYSICAL EXAM: GENERAL: Reveals an alert, comfortable 56-year-old male in no acute distress. HEAD and NECK: Reveals no icterus. His pupils are normal. Neck is supple. No adenopathy. CHEST: Yasmin r. CARDIAC: Irregular rhythm. ABDOMEN: Soft and nontender. EXTREMITIES: Reveal full pulses, ful l range of motion. On his left anterior albarran, he has a 20 cm wound which is presently covered with a wound VAC. There is no significant erythema or drainage. IMPRESSION: 1. Recurrent atrial fibrillation. 2. Left leg wound. PLAN: Will depend on Cardiology. If possible, we can do his split-thickness skin graft on this hosp italization if he is cleared by Cardiology and does not require immediate anticoagulation. We will f jose along with you. Risks and options have been discussed with the patient. /[id number]/MODL
== END 2017-01-07 16:49 | disposition home health service (06) | DRG 264 ==
LOC: F2W 16:00 → OBSVTOIN 12-27 14:48
PROVIDERS: ADMIT Student in an Organized Health Care Education/Training Program; ATTEND Student in an Organized Health Care Education/Training Program
PROC: 0HBJXZZ Excision of Left Upper Leg Skin, External Approach (ICD-10-PCS; principal; 2017-01-01 14:30)
PROC: 0HBLXZZ Excision of Left Lower Leg Skin, External Approach (ICD-10-PCS; principal; 2017-01-01 14:30)
PROC: 0HRLX74 Replacement of Left Lower Leg Skin with Autologous Tissue Substitute, Partial Thickness, External Approach (ICD-10-PCS; principal; 2017-01-01 14:30)
PROC: 2W1 Placement, Anatomical Regions, Compression (ICD-10-PCS; principal; 2017-01-01 14:30)
DX: I47.1 Supraventricular tachycardia (principal); L03.116 Cellulitis of left lower limb; I48.92 Unspecified atrial flutter; K59.00 Constipation, unspecified; G47.33 Obstructive sleep apnea (adult) (pediatric); E66.9 Obesity, unspecified; Z68.36 Body mass index [BMI] 36.0-36.9, adult; Z87.891 Personal history of nicotine dependence
CPT/HCPCS: 96374; 97161-GP; 97165-GO; 97535-GO; A9500; G0378; J0153; J0330; J0690; J1170; J1650; J2250; J2405; J2704; J2785; J3010

== ENCOUNTER → 2017-07-15 | Outpatient (CLI) | payer OTHER ==
[~2017-07-15] MED LIST: IOPAMIDOL (ISOVUE 370) 100 ML BTL IV ONE
== END ==
LOC: FIMAGING 15:48
PROVIDERS: ATTEND Internal Medicine Cardiovascular Disease
DX: I51.7 Cardiomegaly (principal); I25.10 Atherosclerotic heart disease of native coronary artery without angina pectoris; K76.0 Fatty (change of) liver, not elsewhere classified
CPT/HCPCS: Q9967

== ENCOUNTER 2017-07-22 06:56 | Observation (INO) | payer OTHER ==
[2017-07-22] MEDS ORDERED: NS 1,000 ML IV ONE (07:02)
--- NOTE | 2017-07-22 07:18 | CPEKG ---
Heart Rate: 80 RR Interval: 750 P-R Interval: 180 QRSD Interval: 90 QT Interval: 396 QTC Interval: 457 P [place]: 46 QRS [place]: 20 T Wave [place]: 85 EKG Severity - BORDERLINE ECG - EKG Impression: SINUS RHYTHM EKG Impression: BORDERLINE T WAVE ABNORMALITIES Electronically Signed By: Jonathan Ingram 22-Jul-2017 08:52:56
[2017-07-22 07:34] LABS: PLATELET COUNT 199 10^3/uL (150-400)
[2017-07-22 07:42] LABS: INR 1.01 (0.83-1.16); PROTIME(PATIENT) 13.5 SEC (12.0-15.0)
[2017-07-22] MEDS ORDERED: LIDOCAINE 1% 300 MG/30 ML SDV ONE (08:00)
[2017-07-22] MEDS ORDERED: HEPARIN 10,000 UNIT/10 ML MDV (1,000 UNIT/ML) ONE (08:00)
[2017-07-22] MEDS ORDERED: ISOPROTERENOL HCL/D5W 0.2 MG/50 ML BAG IV ONE (08:01)
[2017-07-22] MEDS ORDERED: BUPIVACAINE 0.5% 10 ML SDV ONE (08:01)
--- NOTE | 2017-07-22 08:49 | PDGENHP ---
History & Physical Chief Complaint: at History of Present Illness: at Relevant Physical Exam: s1s2 rrr cta ao3 Cardiorespiratory Assessment: at post afib ablation. gi bleed. plan at ablation. prior mpi with fixed defect, cor angio if necessary, risks d.w. pt
--- NOTE | 2017-07-22 12:51 | EPPROC ---
Electrophysiology Procedure Note: ELECTROPHYSIOLOGIC STUDY AND CATHETER MEDIATED ABLATION FOR LEFT ATRIAL TACHYCARDIA AND CT ISTHMUS DEPENDENT ATRIAL FLUTTER Procedures performed: 10871-64 EP evaluation with RA/RV/LA pace/record, with arrhythmia induction 57289-31 EP evaluation with RA/RV pace record, insert/reposition catheter, with arrhythmia induction 63327 Atrial fibrillation ablation Second arrhythmia 34933 3D mapping Intracardiac echocardiogram Transseptal puncture Fluoroscopy INDICATION: Prior ablation at outside insitution for AFIB Persistent left AT PROCEDURE: The patient arrived in the Electrophysiology Laboratory in the fasting state. The right groin, left groin and right infraclavicular area were prepped and draped in the usual sterile fashion. Anesthesiologist administered general anesthesia Dr. Macdonald . All catheters were placed percutaneously using the Seldinger technique and advanced into position under fluoroscopic guidance. One #7 Afghan deflectable octapolar electrode catheter was placed in the His-bundle position via the left femoral vein (2mm spacing, IVC electrode for unipolar recordings). This catheter was placed in the coronary sinus after transseptal puncture. Halo catheter was placed along TA. One #8 Afghan AcuNaV ultrasound catheter was placed in the left femoral vein and advanced into the right atrium. One #4 Afghan sheath was inserted into the left femoral artery via percutaneous technique and used for continuous arterial blood pressure monitoring and intermittent ACT determination. Programmed stimulation was performed from the right atrium, left atrium (CS) and right ventricle. There was no evidence of AV accessory pathway. Antegrade WBB 320 ms, no antegrade SP Retrograde WBB 510 ms, retrograde SP present Intracardiac echo evaluation of the left atrium and pulmonary veins was performed. Baseline ACT was drawn and heparin bolus was administered and heparin drip was started prior to transseptal puncture. ACT was checked every 15 minutes and maintained in the range of 350-400 seconds. Programmed stimulation induced AFL, CL 220 ms, CT isthmus dependence was proved with entrainment mapping. Patients clinical arrhythmia is left AT, CL 300-350 ms. This was not induced initially. One SL1 sheath (8.5 Fr ) was inserted into the right femoral vein and advanced into the right atrium. Transseptal puncture was performed under intracardiac ultrasound, fluoroscopic and hemodynamic guidance placing the sheath into the left atrium. Hemarina RF needle (C0 curve) was used. The mean left atrial pressure was 8 mmHg. Pentaray catheter was placed in LA and a detailed voltage map was performed. This showed that LSPV was reconnected. There were fragmented potentials in RPV chris and also posterior to RIPV. While mapping LA, the patient had spontaneous occurence of left atrial tachycardia CL 320 ms. 3D map of left AT was performed. This showed microreentry anterior to LSPV. Pentaray catheter was changed to 3.5 mm irrigated STSF catheter. At ablation site there were wide double potentials 150 ms in duration. RF application at this site terminated AT. Further applications were delivered posterior to and anterior to LSPV. This isolated LVPV and left AT could no longer be induced. RF applications also delivered to RPV chris and posterio to RIPV. Catheters were withdrawn into RA and ablation of CT isthmus was performed. Bidirectional conduction block was achieved with septal to lateral conduction time of 190 ms. An esophageal temperature probe (12 electrode, Circa) was placed by the anesthesiologist at the beginning of the procedure. Esophageal temperature was monitored continuously , there was no temperature rise. ICE imaging was consistent with pre ablation imaging; moreover it showed no pericardial effusion or LA/SAMMI thrombus at the end of the procedure. The catheters were withdrawn. Protamine was given. Venous vascular access sheaths were removed in the EP lab after placing subcutaneous pursestring suture. Arterial access sheath was left in place. The patient was recovered from anesthesia. Patient was taken to the ICU in stable condition. There were no complications. CONCLUSIONS: * Persistent atrial fibrillation. * Successful pulmonary vein isolation procedure (LSPV) * Microreentrant left atrial tachycardia, successfully ablated anterior to LSPV * Cavotricuspid isthmus dependent atrial flutter, successful ablation. * No apparent complications. Patient Problems: Problems Problem Status Onset Lower extremity cellulitis Acute SVT (supraventricular tachycardia) Acute Traumatic hematoma of lower leg with infection Acute
--- NOTE | 2017-07-22 12:59 | ECHO ---
[email or web address] [address] [address] Main: [phone] Fax: Transesophageal Echocardiography Name: MIKE CHAVIRA MR#: [id number] Study Date: 07/22/2017 Study Time: 09:10 AM Date of : 1960 Age: 56 year(s) Height: ( ) Weight: ( ) BSA: Gender: Male Examination: SUNNY Indication: Pre EP Image Quality: Contrast: Requested by: Jonathan Ingram Heart Rate: Rhythm: BP: / Procedure Staff Fundraising Consultant: Edvin Duarte RDCS Reading Physician: Jonathan Ingram MD Requesting Provider: SUNNY Exam Details Conclusions: The ejection fraction is estimated to be 50-55 %. An agitated saline study was performed and was negative for intracardiac shunting. No thrombus in left appendage. Prominent pericardial fat pad Measurements: Chambers Valvular Assessment AV/MV Valvular Assessment TV/PV Normal Normal Normal Name Value Range Name Value Range Name Value Range EF Range: 50-55 % Additional Measurements: Findings: Left Ventricle: The ejection fraction is estimated to be 50-55 %. No regional wall motion abnormality. Right Ventricle: Normal RV function. Left Atrium: An agitated saline study was performed and was negative for intracardiac shunting. Left Atrial Appendage: Good color flow doppler in the left atrial appendage. No thrombus in left appendage. Mitral Valve: Patient: MIKE CHAVIRA Study Date: 07/22/2017 Page 1 of 2 09:10 AM The mitral valve is normal in appearance and function. Trivial mitral valve regurgitation. Aortic Valve: The aortic valve is tri-leaflet and functions normally. Tricuspid Valve: The tricuspid valve is normal in appearance and function. Pulmonic Valve: The pulmonic valve is normal in appearance and function. Aorta: The aorta is normal. Pericardium: No pericardial effusion. l1n (No Signature Object) Patient: MIKE CHAVIRA Study Date: 07/22/2017 Page 2 of 2 09:10 AM [id number]
[2017-07-22] MEDS ORDERED: ATROPINE SULFATE 1 MG/10 ML SYR ONE (13:12)
--- NOTE | 2017-07-22 14:17 | CPEKG ---
Heart Rate: 75 RR Interval: 800 P-R Interval: 180 QRSD Interval: 88 QT Interval: 424 QTC Interval: 474 P [place]: 54 QRS [place]: 44 T Wave [place]: 116 EKG Severity - ABNORMAL ECG - EKG Impression: SINUS RHYTHM EKG Impression: LOW VOLTAGE IN FRONTAL LEADS EKG Impression: ABNORMAL T, CONSIDER ISCHEMIA, ANT-LAT LEADS Electronically Signed By: Jonathan Ingram 22-Jul-2017 16:11:23
--- NOTE | 2017-07-22 15:55 | POSTANESTH ---
Post Anesthetic Evaluation Cardiovascular Status: Normal, Stable Respiratory Status: Tx Decrease in SpO2 Level of Consciousness/Mental Status: Can Participate in Eval Pain Control: Adequate, Prn Tx Ordered Nausea/Vomiting Control: Adequate, Prn Tx Ordered Complications Possibly Related to Anesthesia: None Noted
--- NOTE | 2017-07-22 15:57 | PDANEPAE ---
ANE History of Present Illness 56 yo for afib ablation ANE Past Medical History - Cardiovascular History Hx Hypertension: No Hx Arrhythmias: Yes Hx Chest Pain: No Hx Coronary Artery / Peripheral Vascular Disease: No Hx CHF / Valvular Disease: Yes Hx Palpitations: Yes - Pulmonary History Hx COPD: No Hx Asthma/Reactive Airway Disease: No Hx Recent Upper Respiratory Infection: No Hx Oxygen in Use at Home: No Hx Sleep Apnea: Yes - Endocrine History Hx Diabetes: No - Chronic Pain History Chronic Pain: No ANE Review of Systems Review of Systems: - Exercise capacity METS (RN): 3 METS ANE Patient History - Allergies Allergies/Adverse Reactions: No Known Drug Allergies Allergy (Unknown, Verified 12/26/16 14:17) - Home Medications Home medications: home medication list seen and reviewed Home Medications: Furosemide [Lasix 40 MG (*)] 40 mg PO DAILY 12/11/15 [Last Taken 07/21/17] Dabigatran Etexilate Mesyl [Pradaxa 150 MG (*)] 150 mg PO BID 07/17/17 [Last Taken 07/20/17 09:00] Diltiazem HCl [Cartia XT 180mg] 180 mg PO BID 07/17/17 [Last Taken 07/21/17 21: 00] Iron/Vit C/Docusate [Rehan-Sequels 65 mg (*)] 1 each PO DAILY 07/22/17 [Last Taken 1 Week Ago ~07/15/17] - NPO status NPO Status: no food or drink >8 hours - Smoking Hx Smoking Status: Never smoked ANE Labs/Vital Signs - Labs Result Diagrams: 07/22/17 07:15 07/22/17 07:15 - Vital Signs Blood Pressure: 123/70 Heart Rate: 77 Respiratory Rate: 25 O2 Sat (%): 92 Height: 6 ft 1 in Weight: 127.006 kg ANE Physical Exam - Airway Mallampati Score: Class 3 - Pulmonary Pulmonary: no respiratory distress - Cardiovascular Cardiovascular: regular rate and rhythym - ASA Status ASA Status: III ANE Anesthesia Plan Anesthesia Plan: general endotracheal anesthesia
[2017-07-22] MEDS: METOPROLOL TARTRATE 50 MG TAB PO SCH (20:27)
[2017-07-22] MEDS: DABIGATRAN ETEXILATE MESYL 150 MG CAP PO SCH (20:27)
[2017-07-22] MEDS: Diltiazem Hcl [Cartia Xt 180mg] 180 MG PO SCH (23:23)
[2017-07-23 04:16] LABS: PLATELET COUNT 203 10^3/uL (150-400)
[2017-07-23 04:24] LABS: CREATINE KINASE 59 IU/L (0-224)
[2017-07-23 04:29] LABS: INR 1.11 (0.83-1.16); PROTIME(PATIENT) 14.5 SEC (12.0-15.0)
[2017-07-23 08:33] VITALS: O2SAT 91
[2017-07-23 08:35] VITALS: TEMP 98.1
--- NOTE | 2017-07-23 08:58 | CPEKG ---
Heart Rate: 70 RR Interval: 857 P-R Interval: 180 QRSD Interval: 94 QT Interval: 428 QTC Interval: 462 P Adrian: 50 QRS Adrian: 13 T Wave Adrian: 159 EKG Severity - ABNORMAL ECG - EKG Impression: SINUS RHYTHM EKG Impression: LOW VOLTAGE IN FRONTAL LEADS EKG Impression: ABNORMAL T, CONSIDER ISCHEMIA, LATERAL LEADS Electronically Signed By: Jonathan Ingram 23-Jul-2017 10:08:47
[2017-07-23] MEDS ORDERED: FUROSEMIDE 40 MG TAB PO SCH (09:00)
[2017-07-23] MEDS ORDERED: FERRO-SEQUELS 65 MG TAB.ER PO SCH (09:00)
[2017-07-23] MEDS: DABIGATRAN ETEXILATE MESYL 150 MG CAP PO SCH (09:39)
[2017-07-23] MEDS: METOPROLOL TARTRATE 50 MG TAB PO SCH (09:40)
[2017-07-23] MEDS: Diltiazem Hcl [Cartia Xt 180mg] 180 MG PO SCH (09:42)
[2017-07-23 11:09] VITALS: BP 111/65; PULSE 64; RESP 23
--- NOTE | 2017-07-23 11:34 | ECHO ---
[email or web address] [address] [address] Main: [phone] Fax: Transthoracic Echocardiogram Name: MIKE CHAVIRA MR#: [id number] Study Date: 07/23/2017 Study Time: 08:38 AM Date of : 1960 Age: 56 year(s) Height: 185.4 cm (73 in.) Weight: 127.01 kg (280 lb.) BSA: 2.48 m2 Gender: Male Examination: Echo Indication: Post EP Image Quality: Contrast: Requested by: Jonathan Ingram BP: / Heart Rate: Rhythm: Normal sinus rhythm Indication: Post EP Procedure Staff Mock Up Maker: Edvin Duarte RDCS Reading Physician: Stephen Parmar MD Requesting Provider: Conclusions: No pericardial effusion. Normal left ventricular systolic function with ejection fraction of 70%. Left atrial enlargement. Mild mitral regurgitation. Measurements: Chambers Valvular Assessment AV/MV Valvular Assessment TV/PV Normal Normal Normal Name Value Range Name Value Range Name Value Range Ao Jessie (MM): 2.2 cm (2.2 cm-3.7 AV Vmax: 1.21 m/s (1 m/s-1.7 cm) m/s) IVSd (2D): 1.0 cm (0.6 cm-1.1 AV maxP mmHg ( - ) cm) LVOT Vmax: 0.94 m/s (0.7 m/s-1.1 LVDd (2D): 5.3 cm (4.2 cm-5.9 m/s) cm) MV E Vmax: 0.98 m/s ( - ) LVDs (2D): 3.2 cm (2.1 cm-4 MV A Vmax: 0.31 m/s ( - ) cm) MV E/A: 3.16 ( - ) LVPWd (2D): 1.3 cm (0.6 cm-1 cm) LVEF (2D): 70 (>=54 %) Continued Measurements: Chambers Valvular Assessment AV/MV Name Value Name Value LADs Lon.7 cm MV E' Septal: 0.09 m/s LA Area: 28.0 cm2 MV E/E' Septal: 11.40 LA Volume: 102 ml MV E/E' Lateral: 11.00 LA Volume Index: 41.1 ml/m2 Patient: MIKE CHAVIRA Study Date: 07/23/2017 Page 1 of 2 08:38 AM Findings: Left Ventricle: Normal size left ventricle. No LV hypertrophy. Normal global systolic LV function. EF is 70 %. No regional wall motion abnormality. Right Ventricle: Normal size right ventricle. Normal RV function. Left Atrium: The left atrium is mildly dilated. Right Atrium: The right atrium is normal in size. Mitral Valve: The mitral valve is normal in appearance and function. Mild mitral valve regurgitation is present. Aortic Valve: The aortic valve is normal in appearance and function. The aortic valve is tri-leaflet. There is no aortic valve regurgitation. Tricuspid Valve: The tricuspid valve appears normal. Trivial tricuspid valve regurgitation. Pulmonic Valve: The pulmonic valve is normal in appearance and function. Aorta: The aorta is normal. Pericardium: No pericardial effusion. There is pericardial fat. (No Signature Object) Patient: MIKE CHAVIRA Study Date: 07/23/2017 Page 2 of 2 08:38 AM [id number]
--- NOTE | 2017-07-23 11:36 | GDS ---
[f rep st] DISCHARGE SUMMARY DISCHARGE DIAGNOSES: 1. Left atrial tachycardia status post ablation on 07/22/2017. 2. Atrial flutter, status post ablation on 07/22/2017. 3. History of persistent atrial fibrillation status post ablation 2 years ago remotely. 4. Obesity. 5. Hypertension. 6. Obstructive sleep apnea. 7. Abnormal EKG with T-wave inversion in the anterior and lateral leads post-ablation. HOSPITAL COURSE: For detailed H and P, please see prior dictation. Briefly, the patient is a 56-yea r-old male with a history of persistent atrial fibrillation, status post ablation remotely. He prese nted to our office complaining of tachycardia with associated presyncope. He had a prior trial of Mu ltaq, which did not appear to improve his symptoms. He was also started on metoprolol and diltiazem without any improvement in his symptoms. Ultimately, the decision was made to proceed with EP study and possible ablation. This was performed on July [address] Jonathan Ingram. He was identified to hav e a left atrial tachycardia, which was ablated. He also had atrial flutter, which was ablated. The procedure was uncomplicated. The following morning, the patient denied any chest discomfort or palpi tations. He was monitored on telemetry and remained in normal sinus rhythm. His bilateral groins wh ere access was obtained for the EP study and ablation are clean, intact, without any evidence of infe ction or hematoma. He denies any significant discomfort over the sites. Post ablation, his EKG showed anterior and lateral T-wave inversion, which was new. This persisted t hrough to the following morning. He denied any chest discomfort or shortness of breath. His work re quires him to be fairly active and he denies any exertional symptoms prior to his procedure. His echo revealed normal systolic function without any wall motion abnormalities. His troponin incre ased appropriately, peaking at 0.313. He had a prior nuclear stress test in December of 2016, which sh owed a mildly reduced ejection fraction of 47% with inferior septal hypokinesis. There was no eviden ce of ischemia, but there was possible infarct involving the left ventricular apex. PHYSICAL EXAMINATION: GENERAL: Patient appears in no acute distress. VITAL SIGNS: Blood pressure 124/75, heart rate 71, oxygen saturation of 91% on room air, afebrile. LUNGS: Clear to auscultation . No wheezes, rhonchi, or crackles auscultated. CARDIAC: Regular rate and rhythm without any signi ficant murmurs, rubs, or gallops appreciated. EXTREMITIES: Bilateral groins where access was obtain ed for the EP study and ablation are clean, intact, without any evidence of infection or hematoma. DISCHARGE MEDICATIONS: He will continue Lasix 40 mg daily, metoprolol tartrate 75 mg twice daily, Pr adaxa 150 mg twice daily, Cartia XT 180 mg b.i.d., Rehan-Sequels 65 mg daily. PLAN: The patient is currently stable and ready for discharge home. He has been given groin precaut ions. He will follow up with Dr. Jonathan Ingram on 08/07 at 2:15 as scheduled. His EKG shows inverted T-waves in the anterior and lateral leads. This is new when compared to his p rior EKGs. He had a nuclear stress test in December of 2016, which showed a mildly depressed ejection fraction without any evidence of ischemia. We will plan to repeat a nuclear stress test in 2 weeks. If he develops chest discomfort or significant shortness of breath prior to his stress test, he will contact our office promptly. Greater than 30 minutes was spent coordinating the patient's care today. /[id number]/MODL
== END 2017-07-23 11:41 | disposition home or self-care (01) ==
LOC: FCATH 06:56 → F2N 12:54
PROVIDERS: ADMIT Internal Medicine Cardiovascular Disease; ATTEND Internal Medicine Cardiovascular Disease
DX: I47.1 Supraventricular tachycardia (principal); I48.92 Unspecified atrial flutter; I48.1 Persistent atrial fibrillation; R94.31 Abnormal electrocardiogram [ECG] [EKG]; R55 Syncope and collapse; I10 Essential (primary) hypertension; G47.33 Obstructive sleep apnea (adult) (pediatric); E66.9 Obesity, unspecified; Z68.36 Body mass index [BMI] 36.0-36.9, adult; Z79.01 Long term (current) use of anticoagulants
CPT/HCPCS: 93005; 93306; 93312; 93613; 93621; 93623; 93655; 93657; 93662; C1893; G0378; C1731; C1732; C1759; J0461; J1644